=== PATIENT | male | born 1935 | race Caucasian/White ===

== ENCOUNTER 2017-01-07 13:38 | Inpatient (IN) | payer OTHER, MEDICARE ==
[2017-01-07] VITALS (18 sets, daily range): BP systolic 93–226; BP diastolic 49–102; PULSE 57–74; RESP 14–20; TEMP 97.6–98; O2SAT 92–97
[~2017-01-07] VITALS: Ht 190.5 cm; Wt 95.8 kg
[2017-01-07] MEDS ORDERED: SODIUM CHLORIDE 0.9% FLUSH 10 ML FLUSH IVF PRN (15:00)
[2017-01-07 15:04] LABS: BASOPHIL % 0.3 % (0.0-2.0); EOSINOPHIL # 0.2 TH/MM3 (0-0.4); EOSINOPHIL % 1.8 % (0.0-4.0); HEMATOCRIT 51.3 % (39.0-51.0); HEMO FLAGS DIFF FINAL; LYMPH % 14.3 % (9.0-44.0); LYMPHOCYTE # 1.5 TH/MM3 (1.0-4.8); MEAN CELL VOLUME 89.1 FL (80.0-100.0); MEAN CORPUSCULAR HEMOGLOBIN 28.5 PG (27.0-34.0); MONO % 7.6 % (0.0-8.0); PLATELET COUNT 154 TH/MM3 (150-450); RED BLOOD COUNT 5.76 MIL/MM3 (4.50-5.90); RED CELL DISTRIBUTION WIDTH 13.5 % (11.6-17.2); WHITE BLOOD COUNT 10.5 TH/MM3 (4.0-11.0)
--- NOTE | 2017-01-07 15:09 | PD ---
HPI Chief Complaint: Chest Pain Time Seen by Provider: 14:44 Travel History International Travel<30 days: No Contact w/Intl Traveler<30days: No Traveled to known affect area: No History of Present Illness HPI Patient is a 81-year-old male with history of hypertension, hyperlipidemia, history of 2 cardiac stents, presents to emergency room with complaints of chest pain. Patient reports that around 11:45 this morning, he began to have some upper belly pain along with chest pain. Patient reports that his chest pain was located to his epigastrium, reports that it radiates to his back. Patient reports that the chest pain felt like a "pressure to his chest" and was associated with shortness of breath as well as diaphoresis. Patient reports that his symptoms have been continuous since this morning and patient was worried as he has not had the symptoms in the past. Patient reports that he does see a timber inspector, Dr. Calderón - he has not seen him in many years. PFSH Past Medical History High Cholesterol: Yes Hypertension: Yes Past Surgical History Coronary Stent: Yes Social History Tobacco Use: No Allergies-Medications (Allergen,Severity, Reaction): Coded Allergies: No Known Allergies (Unverified , 01/07/17) Reported Meds & Prescriptions Reported Meds & Active Scripts Active Reported Atenolol 50 Mg Tab 50 Mg PO DAILY Review of Systems General / Constitutional: No: Fever Eyes: No: Visual changes HENT: No: Headaches Cardiovascular: Positive: Chest Pain or Discomfort, Diaphoresis Respiratory: Positive: Shortness of Breath Gastrointestinal: Positive: Nausea, Abdominal Pain, No: Vomiting Genitourinary: No: Dysuria Musculoskeletal: No: Pain Skin: No Rash Neurologic: No: Weakness Psychiatric: No: Depression Endocrine: No: Polydipsia Hematologic/Lymphatic: No: Easy Bruising Physical Exam Narrative GENERAL: Mild distress SKIN: Focused skin assessment warm/dry. HEAD: Atraumatic. Normocephalic. EYES: Pupils equal and round. No scleral icterus. No injection or drainage. ENT: No nasal bleeding or discharge. Mucous membranes pink and moist. NECK: Trachea midline. No JVD. CARDIOVASCULAR: Regular rate and rhythm. No murmur appreciated. RESPIRATORY: No accessory muscle use. Clear to auscultation. Breath sounds equal bilaterally. GASTROINTESTINAL: Abdomen soft, non-tender, nondistended. Hepatic and splenic margins not palpable. MUSCULOSKELETAL: No obvious deformities. No clubbing. No cyanosis. No edema. NEUROLOGICAL: Awake and alert. No obvious cranial nerve deficits. Motor grossly within normal limits. Normal speech. PSYCHIATRIC: Appropriate mood and affect; insight and judgment normal. Data Data Last Documented VS Vital Signs Date Time Temp Pulse Resp B/P Pulse Ox O2 Delivery O2 Flow Rate FiO2 01/07/17 15:30 58 16 141/76 94 Nasal Cannula 2 01/07/17 13:43 97.8 Orders Electrocardiogram (01/07/17 ) B-Type Natriuretic Peptide (01/07/17 14:53) Ckmb (Isoenzyme) Profile (01/07/17 14:53) Complete Blood Count With Diff (01/07/17 14:53) Comprehensive Metabolic Panel (01/07/17 14:53) Magnesium (Mg) (01/07/17 14:53) Prothrombin Time / Inr (Pt) (01/07/17 14:53) Act Partial Throm Time (Ptt) (01/07/17 14:53) Troponin I (01/07/17 14:53) Lipase (01/07/17 14:53) Chest, Single Ap (01/07/17 14:53) Ecg Monitoring (01/07/17 14:53) Bilateral Bp Monitoring (01/07/17 14:53) Iv Access Insert/Monitor (01/07/17 14:53) Oximetry (01/07/17 14:53) Sodium Chloride 0.9% Flush (Ns Flush) (01/07/17 15:00) Nitroglycerin Sl (Nitrostat Sl) (01/07/17 15:00) Cta Thor Abd Aorta W Iv C W3d (01/07/17 14:53) Nicardipine Inj (Cardene Inj) (01/07/17 16:00) Iohexol 350 Inj (Omnipaque 350 Inj) (01/07/17 15:53) Morphine Inj (Morphine Inj) (01/07/17 16:15) Labs Laboratory Tests Test 01/07/17 14:40 White Blood Count 10.5 TH/MM3 Red Blood Count 5.76 MIL/MM3 Hemoglobin 16.4 GM/DL Hematocrit 51.3 % Mean Corpuscular Volume 89.1 FL Mean Corpuscular Hemoglobin 28.5 PG Mean Corpuscular Hemoglobin 32.0 % Concent Red Cell Distribution Width 13.5 % Platelet Count 154 TH/MM3 Mean Platelet Volume 9.0 FL Neutrophils (%) (Auto) 76.0 % Lymphocytes (%) (Auto) 14.3 % Monocytes (%) (Auto) 7.6 % Eosinophils (%) (Auto) 1.8 % Basophils (%) (Auto) 0.3 % Neutrophils # (Auto) 8.0 TH/MM3 Lymphocytes # (Auto) 1.5 TH/MM3 Monocytes # (Auto) 0.8 TH/MM3 Eosinophils # (Auto) 0.2 TH/MM3 Basophils # (Auto) 0.0 TH/MM3 CBC Comment DIFF FINAL Differential Comment Prothrombin Time 11.3 SEC Prothromb Time International 1.0 RATIO Ratio Activated Partial 31.0 SEC Thromboplast Time Sodium Level 143 MEQ/L Potassium Level 4.6 MEQ/L Chloride Level 107 MEQ/L Carbon Dioxide Level 28.1 MEQ/L Anion Gap 8 MEQ/L Blood Urea Nitrogen 17 MG/DL Creatinine 1.40 MG/DL Estimat Glomerular Filtration 49 ML/MIN Rate Random Glucose 111 MG/DL Calcium Level 8.7 MG/DL Magnesium Level 2.2 MG/DL Total Bilirubin 0.7 MG/DL Aspartate Amino Transf 20 U/L (AST/SGOT) Alanine Aminotransferase 30 U/L (ALT/SGPT) Alkaline Phosphatase 73 U/L Total Creatine Kinase 85 U/L Troponin I LESS THAN 0.02 NG/ML Total Protein 7.7 GM/DL Albumin 3.9 GM/DL Lipase 136 U/L MDM Medical Decision Making Medical Screen Exam Complete: Yes Emergency Medical Condition: Yes Interpretation(s) EKG at 1345: Sinus bradycardia at 58bpm, qt/qtc: 418/415, 1st degree av block, no acute changes Vital Signs Date Time Temp Pulse Resp B/P Pulse Ox O2 Delivery O2 Flow Rate FiO2 01/07/17 13:43 97.8 59 14 192/102 96 Differential Diagnosis ACS, arrhythmia, aortic dissection, pancreatitis, gastroenteritis, electrolyte abnormality, PE, pneumothorax Narrative Course Patient is an 81-year-old male with history of coronary disease, hypertension, hyperlipidemia, emergency room with complaints of abdominal pain as well as chest pain. Symptoms started around 11:45 AM today, reports that the pain goes from his upper abdomen to his epigastrium and radiates to his back. He does have associated nausea, diaphoresis and shortness breath with his symptoms. EKG was obtained upon arrival to emergency room, patient does have sinus bradycardia with no acute changes. Patient was placed on a cardiac surgeon, labs as well as cardiac enzymes ordered. Patient with concerning symptoms for chest pain radiating to back - he does have elevated blood pressure at this time - CTA ordered as there is concerns for aortic dissection. Chest xray ordered to evaluate mediastinum. Will hold on asa until cta has been resulted chest pain 2/10 after 3 SL nitro administered pt with type b dissection, call made to Dr Scruggs, accepts pt to service at [facility], request cardene or labetolol gtt with sbp around 110 and request admission to ICU Critical Care Narrative Aggregate critical care time was 45 minutes. Time to perform other separately billable procedures was not included in the critical care time. My time did not include minutes spent treating any other patients simultaneously or on activities that did not directly contribute to the patient's treatment. The services I provided to this patient were to treat and/or prevent clinically significant deterioration that could result in: , decompensation, deterioration I provided critical care services requiring my management, as noted below: Chart data review, documentation time, medication orders and management, vital sign assessments/reviewing monitor data, ordering and reviewing lab tests, ordering and interpreting/reviewing x-rays and diagnostic studies, care of the patient and discussion of the patient with the admitting physicians. Diagnosis Primary Impression: Aortic dissection, thoracoabdominal Admitting Information Admitting Physician Requests: Admit Leonarda Diez DO Jan 07, 2017 15:09
[2017-01-07] MEDS: NITROGLYCERIN 0.4 MG SL 25 TABS/BTL SL SCH ×3 (15:11→15:25)
[2017-01-07 15:20] LABS: CHLORIDE 107 MEQ/L (98-107); POTASSIUM 4.6 MEQ/L (3.5-5.1); SODIUM (NA) 143 MEQ/L (136-145)
[2017-01-07 15:24] LABS: ANION GAP 8 MEQ/L (5-15); BICARBONATE 28.1 MEQ/L (21.0-32.0); BLOOD UREA NITROGEN 17 MG/DL (7-18); MAGNESIUM 2.2 MG/DL (1.5-2.5); PROTHROMBIN TIME - PATIENT 11.3 SEC (9.8-11.6)
[2017-01-07 15:27] LABS: ALT (GPT) 30 U/L (12-78); AST (GOT) 20 U/L (15-37); GLOMERULAR FILTRATION RATE 49 ML/MIN (>89)
[2017-01-07 15:29] LABS: TOTAL BILIRUBIN ADULT 0.7 MG/DL (0.2-1.0)
[2017-01-07 15:30] LABS: ALKALINE PHOSPHATASE 73 U/L (45-117)
[2017-01-07] MEDS ORDERED: ATEN50TA PO (15:42)
[2017-01-07] MEDS ORDERED: IOHEXOL 350 MG/ML 10 ML VIAL (for RAD DIAG) IV ONE (15:53)
--- NOTE | 2017-01-07 15:57 | RADHPO ---
EXAM DATE/TIME: 01/07/2017 15:10 [facility] COMPARISON: No previous studies available for comparison. INDICATIONS : Chest and abdominal pain for 12 hours MEDICAL HISTORY : None. SURGICAL HISTORY : None. ENCOUNTER: Initial ACUITY: 1 day PAIN SCORE: 8/10 LOCATION: Bilateral chest FINDINGS: The cardiac silhouette is normal in transverse diameter. The lungs are free of acute parenchymal opac ity. No effusions are identified. The aortic knob is prominent in this patient undergoing CT angiogra phy. CONCLUSION: 1. No acute cardiopulmonary disease. Aneurysmal dilatation of the thoracic arch. Broderick Chan MD on January 07, 2017 at 15:55 Board Certified Radiologist. This report was verified electronically.
[2017-01-07 15:58] LABS: CREATINE KINASE 85 U/L (39-308)
[2017-01-07] MEDS ORDERED: niCARdipine INJ 25 MG in SODIUM CHLOR 0.9% 250 ML INJ 250 ML IV ONE (16:00)
[2017-01-07] MEDS ORDERED: MORPHINE SULFATE 4 MG/ML INJ IV PUSH ONE (16:15)
[2017-01-07] MEDS ORDERED: LABETALOL HCL 100 MG/20 ML VIAL IV PUSH ONE ×3 (16:30→19:15)
--- NOTE | 2017-01-07 16:39 | RADHPO ---
EXAM DATE/TIME: 01/07/2017 15:41 [facility] COMPARISON: No previous studies available for comparison. INDICATIONS : Chest pain today. IV CONTRAST: 100 cc Omnipaque 350 (iohexol) IV RADIATION DOSE: 18.35 CTDIvol (mGy) MEDICAL HISTORY : Hypertension. SURGICAL HISTORY : Coronary artery stent. ENCOUNTER: Initial ACUITY: 1 day PAIN SCALE: 5/10 LOCATION: Bilateral chest TECHNIQUE: Volumetric scanning was performed using a multi-row detector CT scanner. The data was post processed with a variety of visualization algorithms including full volume maximum intensity pr ojection, multi-planar sliding thin slab reformation, curved planar reformation, and surface renderin g techniques. Using automated exposure control and adjustment of the mA and/or kV according to patie nt size, radiation dose was kept as low as reasonably achievable to obtain optimal diagnostic quality images. FINDINGS: There is extensive atherosclerotic vascular disease involving coronary arteries and aorta. The ascen ding aorta is normal in size. There is a dissection of the descending aorta with both true and false lumen that starts just below t he arch and extends down through the abdominal aorta. The celiac plexus arises from the true lumen. The superior mesenteric artery arises from the true lumen. The right renal artery arises partially from the true lumen and partially from the false lumen. The left renal artery arises from the true l umen. The dissection stops at the level of the renal arteries. Common iliac, external iliac and common femoral arteries are patent. There are no suspicious lung lesions identified. Review of source data reveals no suspicious lung lesions. There is a very poorly perfused right kidn ey with the bulk of the kidney being fed by an artery off of the false lumen. The inferior lower dante e is fed by a second artery off of the true lumen. There is reasonable perfusion to the left kidney. CONCLUSION: Dissection as described above. The right renal artery is predominantly in the false lumen. Mesenter ic arteries are in the true lumen. This does not extend over the arch. Andrew Lopez MD FACR on January 07, 2017 at 16:28 Board Certified Radiologist. This report was verified electronically.
--- NOTE | 2017-01-07 17:18 | PD ---
Data Data Last Documented VS Vital Signs Date Time Temp Pulse Resp B/P Pulse Ox O2 Delivery O2 Flow Rate FiO2 01/07/17 15:30 58 16 141/76 94 Nasal Cannula 2 01/07/17 13:43 97.8 Orders Electrocardiogram (01/07/17 ) B-Type Natriuretic Peptide (01/07/17 14:53) Ckmb (Isoenzyme) Profile (01/07/17 14:53) Complete Blood Count With Diff (01/07/17 14:53) Comprehensive Metabolic Panel (01/07/17 14:53) Magnesium (Mg) (01/07/17 14:53) Prothrombin Time / Inr (Pt) (01/07/17 14:53) Act Partial Throm Time (Ptt) (01/07/17 14:53) Troponin I (01/07/17 14:53) Lipase (01/07/17 14:53) Chest, Single Ap (01/07/17 14:53) Ecg Monitoring (01/07/17 14:53) Bilateral Bp Monitoring (01/07/17 14:53) Iv Access Insert/Monitor (01/07/17 14:53) Oximetry (01/07/17 14:53) Sodium Chloride 0.9% Flush (Ns Flush) (01/07/17 15:00) Nitroglycerin Sl (Nitrostat Sl) (01/07/17 15:00) Cta Thor Abd Aorta W Iv C W3d (01/07/17 14:53) Nicardipine Inj (Cardene Inj) (01/07/17 16:00) Iohexol 350 Inj (Omnipaque 350 Inj) (01/07/17 15:53) Morphine Inj (Morphine Inj) (01/07/17 16:15) Admit Order (Ed Use Only) (01/07/17 16:11) Labs Laboratory Tests Test 01/07/17 14:40 White Blood Count 10.5 TH/MM3 Red Blood Count 5.76 MIL/MM3 Hemoglobin 16.4 GM/DL Hematocrit 51.3 % Mean Corpuscular Volume 89.1 FL Mean Corpuscular Hemoglobin 28.5 PG Mean Corpuscular Hemoglobin 32.0 % Concent Red Cell Distribution Width 13.5 % Platelet Count 154 TH/MM3 Mean Platelet Volume 9.0 FL Neutrophils (%) (Auto) 76.0 % Lymphocytes (%) (Auto) 14.3 % Monocytes (%) (Auto) 7.6 % Eosinophils (%) (Auto) 1.8 % Basophils (%) (Auto) 0.3 % Neutrophils # (Auto) 8.0 TH/MM3 Lymphocytes # (Auto) 1.5 TH/MM3 Monocytes # (Auto) 0.8 TH/MM3 Eosinophils # (Auto) 0.2 TH/MM3 Basophils # (Auto) 0.0 TH/MM3 CBC Comment DIFF FINAL Differential Comment Prothrombin Time 11.3 SEC Prothromb Time International 1.0 RATIO Ratio Activated Partial 31.0 SEC Thromboplast Time Sodium Level 143 MEQ/L Potassium Level 4.6 MEQ/L Chloride Level 107 MEQ/L Carbon Dioxide Level 28.1 MEQ/L Anion Gap 8 MEQ/L Blood Urea Nitrogen 17 MG/DL Creatinine 1.40 MG/DL Estimat Glomerular Filtration 49 ML/MIN Rate Random Glucose 111 MG/DL Calcium Level 8.7 MG/DL Magnesium Level 2.2 MG/DL Total Bilirubin 0.7 MG/DL Aspartate Amino Transf 20 U/L (AST/SGOT) Alanine Aminotransferase 30 U/L (ALT/SGPT) Alkaline Phosphatase 73 U/L Total Creatine Kinase 85 U/L Troponin I LESS THAN 0.02 NG/ML B-Type Natriuretic Peptide 154 PG/ML Total Protein 7.7 GM/DL Albumin 3.9 GM/DL Lipase 136 U/L MDM Supervised Visit with [facility]RI[facility]: No Narrative Course 81-year-old man, admitted for aortic dissection, waiting emergent transfer to the ICU at the [facility]. I assumed care of Patient care patient from Dr. Diez. Patient admitted to the ICU at this point. Continue nicardipine. Blood pressure not at goal less than 110. Heart rate is 72. Right radial arterial line was placed. Patient tolerated well. Recommended more aggressive titration of his nicardipine. EMS is here to take patient to the ICU. Procedures Procedure Narrative Arterial line: Discussed procedure patient. Verbal consent obtained. Right wrist was prepped with chlorhexidine. 20-gauge angiocatheter was easily introduced in the right radial artery. Good waveform. There is some discrepancy between the blood pressure cuff and the arterial line. This may be related to the dissection itself. Diagnosis Primary Impression: Aortic dissection, thoracoabdominal Kris Lua MD Jan 07, 2017 17:18
[2017-01-07] MEDS ORDERED: LABETALOL HCL 100 MG/20 ML VIAL IV PUSH PRN (18:45)
[2017-01-07] MEDS ORDERED: D5-1/2 NS + KCL 20 MEQ INJ 1,000 ML IV SCH (18:56)
[2017-01-07] MEDS ORDERED: LABETALOL IV SCH ×2 (19:00)
[2017-01-07] MEDS ORDERED: MORPHINE SULFATE 4 MG/ML INJ IV PRN (19:00)
[2017-01-07] MEDS ORDERED: NS IV SCH ×2 (19:00)
--- NOTE | 2017-01-07 19:14 | PD.CONS ---
[facility] Service Critical Care Medicine Consult Requested By Dr. Scruggs Reason for Consult Critical Care Management of Type B Aortic Dissection. Primary Care Physician Ines Vences MD History of Present Illness 81 yo WM with past medical history of hypertension, hyperlipidemia, coronary artery disease with stents 2 placed 17 years ago who presented to [facility] after he developed the sudden onset of severe chest pain at 11:45 this morning. He states the pain feels like pressure in the epigastrium and left chest and radiates to the back. It was associated with diaphoresis. He states that he could not get comfortable and that nothing would relieve his severe pain so he was transported to the hospital by [facility]. Workup demonstrated troponin of 0.02. With EKG showing sinus bradycardia with first-degree AV block and no ST or T-wave abnormalities. 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 The mesenteric arteries or in the true lumen and the right renal artery is in the false lumen. His blood pressure upon presentation was 226/ 101. He was started on a nicardipine drip which is currently going at 15 mg per hour and blood pressure is 149/59. He is being started on a labetalol drip to target systolic blood pressure less than 110. He reports persistent pain in his epigastrium and left flank and complains of thirst. 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 He quit smoking 30 years ago. He previously smoked up to 3 packs per day for 25 years States that on average he drinks about 3 glasses of wine per day but can go several days without drinking. Denies use of illicit drugs Physical Exam Vital Signs Vital Signs Date Time Temp Pulse Resp B/P Pulse Ox O2 Delivery O2 Flow Rate FiO2 01/07/17 18:24 97 Nasal Cannula 2.00 01/07/17 18:00 98.0 68 16 150/75 94 167/56 01/07/17 17:40 67 16 154/72 95 Nasal Cannula 2 01/07/17 17:25 73 154/74 01/07/17 17:10 71 14 161/79 97 Nasal Cannula 2 157/78 01/07/17 17:06 186/67 01/07/17 16:50 164/85 01/07/17 16:45 178/80 01/07/17 16:30 169/81 01/07/17 15:30 58 16 141/76 94 Nasal Cannula 2 01/07/17 15:23 226/101 207/102 01/07/17 15:10 58 16 207/102 94 2 01/07/17 14:40 57 16 92 Nasal Cannula 2 01/07/17 14:40 57 16 226/101 92 Nasal Cannula 2 01/07/17 13:43 97.8 59 14 192/102 96 Physical Exam Pulse 75, sinus rhythm on the monitor blood pressure 149/59 sats 96% on 3 L nasal cannula GENERAL: Well-nourished, well-developed patient who is alert, sitting up in bed , talkative. SKIN: Warm and dry, well perfused HEAD: Atraumatic. Normocephalic. EYES: Pupils equal and round. No scleral icterus. No injection or drainage. ENT: No nasal bleeding or discharge. Mucous membranes pink and moist. NECK: Trachea midline. Neck veins are flat CARDIOVASCULAR: Regular rate and rhythm. No murmurs rubs or gallops. RESPIRATORY: No accessory muscle use. Clear to auscultation. Breath sounds equal bilaterally. On 3 L nasal cannula. GASTROINTESTINAL: Abdomen soft, protuberant but nondistended. He reports no tenderness to palpation. There is no rebound or guarding. MUSCULOSKELETAL/vasc: Extremities without clubbing, cyanosis, or edema. No obvious deformities. DPs and posterior tibial artery pulses are palpable bilaterally. Feet are warm and well perfused. Right radial art line is in place with normal waveform. Left radial pulse is palpable. NEUROLOGICAL: Awake and alert, normal speech, oriented 4. No obvious cranial nerve deficits. Motor grossly within normal limits, moving all extremities spontaneously. Five out of 5 muscle strength in the arms and legs. Laboratory Laboratory Tests Test 01/07/17 01/07/17 14:40 16:30 White Blood Count 10.5 Red Blood Count 5.76 Hemoglobin 16.4 Hematocrit 51.3 Mean Corpuscular Volume 89.1 Mean Corpuscular Hemoglobin 28.5 Mean Corpuscular Hemoglobin 32.0 Concent Red Cell Distribution Width 13.5 Platelet Count 154 Mean Platelet Volume 9.0 Neutrophils (%) (Auto) 76.0 Lymphocytes (%) (Auto) 14.3 Monocytes (%) (Auto) 7.6 Eosinophils (%) (Auto) 1.8 Basophils (%) (Auto) 0.3 Neutrophils # (Auto) 8.0 Lymphocytes # (Auto) 1.5 Monocytes # (Auto) 0.8 Eosinophils # (Auto) 0.2 Basophils # (Auto) 0.0 CBC Comment DIFF FINAL Differential Comment Prothrombin Time 11.3 Prothromb Time International 1.0 Ratio Activated Partial 31.0 Thromboplast Time Sodium Level 143 Potassium Level 4.6 Chloride Level 107 Carbon Dioxide Level 28.1 Anion Gap 8 Blood Urea Nitrogen 17 Creatinine 1.40 Estimat Glomerular Filtration 49 Rate Random Glucose 111 Calcium Level 8.7 Magnesium Level 2.2 Total Bilirubin 0.7 Aspartate Amino Transf 20 (AST/SGOT) Alanine Aminotransferase 30 (ALT/SGPT) Alkaline Phosphatase 73 Total Creatine Kinase 85 Troponin I LESS THAN 0.02 B-Type Natriuretic Peptide 154 Total Protein 7.7 Albumin 3.9 Lipase 136 Blood Type O POSITIVE Antibody Screen NEGATIVE Blood Bank Comment Result Diagram: 01/07/17 1440 01/07/17 1440 Assessment and Plan Assessment and Plan NEURO: Pain secondary to aortic dissection Oxycodone 5 mg by mouth every 4 hours when necessary pain. Morphine 2 mg IV every hours when necessary breakthrough pain. RESP: Nasal cannula wean as tolerated. IS every hour awake. 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 Scruggs Serial cardiac markers. Initial troponin is negative with EKG unremarkable. Aspirin 81 mg daily start 01/08/[address] Scruggs Lipitor 40 mg daily at bedtime GI: Ice chips FEN/RENAL: Renal insufficiency with unknown baseline creatinine Insert Salgado to monitor urine output closely as blood pressure is lowered. Monitor creatinine. Monitor electrolytes and replace as indicated per ICU electrolyte replacement protocol ID: Monitor for signs and symptoms of infection HEME: No acute hematologic issues ENDO: Euglycemic PROPH: Protonix 40 mg by mouth daily for stress ulcer prophylaxis. Lovenox 30 mg subcutaneous every 24 hours for DVT prophylaxis ACCESS: Right radial art line placed 01/07/[address] Scruggs and bedside RN. Patient updated regarding plan of care. Critical care time 55 minutes exclusive of separately billable procedures. Nguyen Hong MD Jan 07, 2017 19:14
[2017-01-07] MEDS: LABETALOL INJ 500 MG in SODIUM CHLORIDE 0.9% INJ 150 ML IV SCH ×2 (20:06→23:59)
--- NOTE | 2017-01-07 20:38 | HHI.HP ---
History of Present Illness Chief Complaint: back pain History of Present Illness 81 yo male with acute onset L chest wall and back pain about 1130 today. Presented to ED at [facility] and r/o for [place], then a CT scan showed an acute TBAD. BP controlled pharmacologically and transferred for further management. No prior episodes like this. At the time of my evaluation, his pain had attenuated significantly. Past/Family/Social History Past Medical History HTN XOL CAD BPH Past Surgical History TURP Coronary stents about 17-18 years ago Social History moved to [place] from [place] about 40 years ago Family History no dissections Home Medications Reported Medications Atenolol 50 Mg Tab50 Mg PO DAILY #30 TAB Ref 0 01/07/17 Coded Allergies: No Known Allergies (Unverified , 01/07/17) Review of Systems Constitutional: DENIES: Fever, Chills, Change in appetite Cardiovascular: COMPLAINS OF: Chest pain Gastrointestinal: COMPLAINS OF: Abdominal pain Physical Exam Vitals/I&O Date Time Temp Pulse Resp B/P Pulse Ox O2 Delivery O2 Flow Rate FiO2 01/07/17 20:10 93 Nasal Cannula 3.00 01/07/17 18:24 97 Nasal Cannula 2.00 01/07/17 18:00 98.0 68 16 150/75 94 167/56 01/07/17 17:40 67 16 154/72 95 Nasal Cannula 2 01/07/17 17:25 73 154/74 01/07/17 17:10 71 14 161/79 97 Nasal Cannula 2 157/78 01/07/17 17:06 186/67 01/07/17 16:50 164/85 01/07/17 16:45 178/80 01/07/17 16:30 169/81 01/07/17 15:30 58 16 141/76 94 Nasal Cannula 2 01/07/17 15:23 226/101 207/102 01/07/17 15:10 58 16 207/102 94 2 01/07/17 14:40 57 16 92 Nasal Cannula 2 01/07/17 14:40 57 16 226/101 92 Nasal Cannula 2 01/07/17 13:43 97.8 59 14 192/102 96 Neuro: alert, resting comfortably HEENT: NC/AT; anicteric sclera Neck: no JVD Heart: reg rate, rhythm Lungs: clear bilaterally Abdomen: soft NT Vascular: palpable femoral pulses Extremities: RAYO, symmetric with good strength Laboratory Tests Test 01/07/17 01/07/17 14:40 16:30 White Blood Count 10.5 Red Blood Count 5.76 Hemoglobin 16.4 Hematocrit 51.3 Mean Corpuscular Volume 89.1 Mean Corpuscular Hemoglobin 28.5 Mean Corpuscular Hemoglobin 32.0 Concent Red Cell Distribution Width 13.5 Platelet Count 154 Mean Platelet Volume 9.0 Neutrophils (%) (Auto) 76.0 Lymphocytes (%) (Auto) 14.3 Monocytes (%) (Auto) 7.6 Eosinophils (%) (Auto) 1.8 Basophils (%) (Auto) 0.3 Neutrophils # (Auto) 8.0 Lymphocytes # (Auto) 1.5 Monocytes # (Auto) 0.8 Eosinophils # (Auto) 0.2 Basophils # (Auto) 0.0 CBC Comment DIFF FINAL Differential Comment Prothrombin Time 11.3 Prothromb Time International 1.0 Ratio Activated Partial 31.0 Thromboplast Time Sodium Level 143 Potassium Level 4.6 Chloride Level 107 Carbon Dioxide Level 28.1 Anion Gap 8 Blood Urea Nitrogen 17 Creatinine 1.40 Estimat Glomerular Filtration 49 Rate Random Glucose 111 Calcium Level 8.7 Magnesium Level 2.2 Total Bilirubin 0.7 Aspartate Amino Transf 20 (AST/SGOT) Alanine Aminotransferase 30 (ALT/SGPT) Alkaline Phosphatase 73 Total Creatine Kinase 85 Troponin I LESS THAN 0.02 B-Type Natriuretic Peptide 154 Total Protein 7.7 Albumin 3.9 Lipase 136 Blood Type O POSITIVE Antibody Screen NEGATIVE Blood Bank Comment Last 48 hours Impressions Chest X-Ray 01/07/17 1453 Signed Impressions: Service Date/Time: Saturday, January 07, 2017 15:10 - CONCLUSION: 1. No acute cardiopulmonary disease. Aneurysmal dilatation of the thoracic arch. Broderick Chan MD Aorta CTA 01/07/17 1453 Signed Impressions: Service Date/Time: Saturday, January 07, 2017 15:41 - CONCLUSION: Dissection as described above. The right renal artery is predominantly in the false lumen. Mesenteric arteries are in the true lumen. This does not extend over the arch. 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 1. BP control with goal SBP 110 - betablockage 2. NPO tonight 3. Watch for recurrent pain 4. Repeat CT in 48-72 hours Antwon Scruggs MD FACS residential builder [facility] - Heart and Vascular Surgery at [facility] [phone] Antwon Scruggs MD Jan 07, 2017 20:38
[2017-01-07] MEDS: ENOXAPARIN SODIUM 30 MG/0.3 ML SYRINGE SQ SCH (22:38)
[2017-01-07] MEDS: ATORVASTATIN 40 MG TAB PO SCH (22:39)
[2017-01-08] VITALS (11 sets, daily range): BP systolic 100–155; BP diastolic 45–88; PULSE 72–80; RESP 18–20; TEMP 97–98.1; O2SAT 93–97
[2017-01-08 01:09] LABS: BACTERIA, URINE RARE /hpf; BLOOD, URINE NEG (NEG); GLUCOSE,URINE NEG (NEG); KETONE, URINE TRACE mg/dL (NEG); MUCUS URINE FEW /lpf (OCC); NITRITE,URINE NEG (NEG); RENAL EPITHELIAL CELLS <1 /hpf; SQUAMOUS EPITHELIAL CELL URINE <1 /hpf (0-5); URINE COLOR YELLOW (YELLW/STRAW)
[2017-01-08 01:10] LABS: COMMENT (UR) CATH
[2017-01-08] MEDS: ONDANSETRON HCL 4 MG/2 ML VIAL IV PUSH PRN ×3 (01:36→14:44)
[2017-01-08] MEDS: LABETALOL INJ 500 MG in SODIUM CHLORIDE 0.9% INJ 150 ML IV SCH ×8 (03:42→22:31)
[2017-01-08 05:51] LABS: AUTOMATED NEUTROPHIL # 7.9 TH/MM3 (1.8-7.7); BASOPHIL % 0.1 % (0.0-2.0); HEMATOCRIT 42.1 % (39.0-51.0); HEMO FLAGS DIFF FINAL; LYMPH % 10.5 % (9.0-44.0); MEAN CORPUSCULAR HEMOGLOBIN 29.8 PG (27.0-34.0); MEAN CORPUSCULAR HGB CONC 33.8 % (32.0-36.0); MONO % 8.4 % (0.0-8.0); PLATELET COUNT 130 TH/MM3 (150-450); RED BLOOD COUNT 4.79 MIL/MM3 (4.50-5.90); RED CELL DISTRIBUTION WIDTH 13.9 % (11.6-17.2); WHITE BLOOD COUNT 9.7 TH/MM3 (4.0-11.0)
[2017-01-08 06:19] LABS: ALKALINE PHOSPHATASE 61 U/L (45-117); ALT (GPT) 23 U/L (12-78); ANION GAP 13 MEQ/L (5-15); AST (GOT) 15 U/L (15-37); BICARBONATE 23.4 MEQ/L (21.0-32.0); BLOOD UREA NITROGEN 24 MG/DL (7-18); CHLORIDE 106 MEQ/L (98-107); GLOMERULAR FILTRATION RATE 26 ML/MIN (>89); MAGNESIUM 1.9 MG/DL (1.5-2.5); POTASSIUM 4.3 MEQ/L (3.5-5.1); SODIUM (NA) 142 MEQ/L (136-145); TOTAL BILIRUBIN ADULT 0.9 MG/DL (0.2-1.0)
[2017-01-08] MEDS: SODIUM CHLORID 0.9% 500 ML INJ 1,000 ML IV SCH (09:15)
--- NOTE | 2017-01-08 09:39 | HHI.CCPN ---
Subjective Remarks/Hospital Course 81 yo WM with past medical history of hypertension, hyperlipidemia, coronary artery disease with stents 2 placed 17 years ago who presented to [facility] after he developed the sudden onset of severe chest pain at 11:45 this morning. He states the pain feels like pressure in the epigastrium and left chest and radiates to the back. It was associated with diaphoresis. He states that he could not get comfortable and that nothing would relieve his severe pain so he was transported to the hospital by [facility]. Workup demonstrated troponin of 0.02. With EKG showing sinus bradycardia with first-degree AV block and no ST or T-wave abnormalities. 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 The mesenteric arteries or in the true lumen and the right renal artery is in the false lumen. His blood pressure upon presentation was 226/ 101. He was started on a nicardipine drip which is currently going at 15 mg per hour and blood pressure is 149/59. He is being started on a labetalol drip to target systolic blood pressure less than 110. He reports persistent pain in his epigastrium and left flank and complains of thirst. 12/29/16: BP improved control on Labetalol gtt. NPO now. Once cleared by vascular surgery, will start PO antihypertensives. Target less than 110. Creat worsened from 1.4 to 2.4. Nephrology consulted Objective Vital Signs Date Time Temp Pulse Resp B/P Pulse Ox O2 Delivery O2 Flow Rate FiO2 01/08/17 08:51 97.7 80 18 116/45 94 115/60 01/07/17 20:10 Nasal Cannula 3.00 Result Diagram: 01/08/17 0515 01/08/17 0515 Objective Remarks GENERAL: Well-nourished, well-developed patient who is alert, sitting up in bed , talkative. No acute distress SKIN: Warm and dry, well perfused HEAD: Atraumatic. Normocephalic. EYES: Pupils equal and round. No scleral icterus. No injection or drainage. ENT: No nasal bleeding or discharge. Mucous membranes pink and moist. NECK: Trachea midline. Neck veins are flat CARDIOVASCULAR: Regular rate and rhythm. No murmurs rubs or gallops. RESPIRATORY: No accessory muscle use. Clear to auscultation. Breath sounds equal bilaterally. GASTROINTESTINAL: Abdomen soft, protuberant but nondistended. No tenderness to palpation. There is no rebound or guarding. MUSCULOSKELETAL/VASC: Extremities without clubbing, cyanosis, or edema. DPs and posterior tibial artery pulses are palpable bilaterally. Feet are warm and well perfused. NEUROLOGICAL: Awake and alert, normal speech, oriented 4. No obvious cranial nerve deficits. Motor grossly within normal limits A/P Assessment and Plan NEURO: Pain secondary to aortic dissection Oxycodone 5 mg by mouth every 4 hours when necessary pain. Morphine 2 mg IV every hours when necessary breakthrough pain. RESP: Nasal cannula wean as tolerated. IS every hour awake. 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 Scruggs Serial cardiac markers. Initial troponin is negative with EKG unremarkable. Aspirin 81 mg daily start 01/08/[address] Scruggs. Will check with Dr. Scruggs prior to starting Lipitor 40 mg daily at bedtime GI: Ice chips. NPO. If cleared by Dr. Scruggs will start PO antihypertensives FEN/RENAL: Acute kidney failure -with unknown baseline creatinine. IVF NS 1L and 1/2 NS with 20 K at 100 per hour -Insert Salgado to monitor urine output closely as blood pressure is lowered. Monitor creatinine. Monitor electrolytes and replace as indicated per ICU electrolyte replacement protocol ID: Monitor for signs and symptoms of infection HEME: No acute hematologic issues ENDO: Euglycemic PROPH: Protonix 40 mg by mouth daily for stress ulcer prophylaxis. Lovenox 30 mg subcutaneous every 24 hours for DVT prophylaxis ACCESS: Right radial art line placed 01/07/[address] Scruggs and bedside RN. Patient updated regarding plan of care. Critical care time 35 minutes exclusive of separately billable procedures. Elena Trivedi MD Jan 08, 2017 09:38
[2017-01-08] MEDS: PANTOPRAZOLE SOD 40 MG DELAYED RELEASE TAB PO SCH (10:00)
[2017-01-08] MEDS: ASPIRIN 81 MG CHEW TAB PO SCH (10:00)
--- NOTE | 2017-01-08 10:29 | RADRPT ---
EXAM DATE/TIME: 01/08/2017 08:52 [facility] COMPARISON: No previous studies available for comparison. INDICATIONS : Acute type B aortic dissection, evaluate renal arteries. MEDICAL HISTORY : Hypertension. Hyperlipidemia. SURGICAL HISTORY : Coronary stent. ENCOUNTER: Subsequent ACUITY: 1 day PAIN SCORE: 2/10 LOCATION: Bilateral flank MEASUREMENTS: RIGHT KIDNEY: 11.8 x 5.7 x 5.1 cm LEFT KIDNEY: 11.5 x 5.0 x 5.3 cm FINDINGS: RIGHT KIDNEY: Renal cortex is normal in thickness and echotexture. No hydronephrosis, stone, or mass. Renal arter y is patent. LEFT KIDNEY: Renal cortex is normal in thickness and echotexture. No hydronephrosis, stone, or mass. Renal arter ies patent. BLADDER: Within normal limits given the degree of distension. CONCLUSION: Kidneys within normal limits. Renal arteries patent. Alex Velasco MD on January 08, 2017 at 10:26 Board Certified Radiologist. This report was verified electronically.
[2017-01-08] MEDS: 1/2 NS + KCL 20 MEQ INJ 1,000 ML IV SCH ×2 (10:48→20:42)
--- NOTE | 2017-01-08 10:56 | RADRPT ---
EXAM DATE/TIME: 01/08/2017 10:06 [facility] COMPARISON: CTA THORACIC ABDOMINAL AORTA W 3D RECON, January 07, 2017, 15:41. INDICATIONS : Nausea, vomiting. MEDICAL HISTORY : Hypertension. SURGICAL HISTORY : Coronary artery stent. ENCOUNTER: Subsequent ACUITY: 2 days PAIN SCORE: 0/10 LOCATION: Abdomen. FINDINGS: Supine view of the abdomen was performed. Bowel gas pattern is nonobstructed with some minimal air in the colon. No pneumoperitoneum. Increased density projecting over the collecting systems bilaterally. No stones identified on the CTA or the recent ultrasound. Represent residual contrast in the collecting systems. 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 CONCLUSION: 1. Contrast within the renal collecting systems bilaterally. 2. Nonobstructive bowel gas pattern. No pneumoperitoneum. 3. 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 Tam Ledesma MD on January 08, 2017 at 10:49 Board Certified Radiologist. This report was verified electronically.
[2017-01-08] MEDS ORDERED: niCARdipine INJ 25 MG in SODIUM CHLOR 0.9% 250 ML INJ 250 ML IV ONE (12:15)
[2017-01-08] MEDS: niCARdipine 25 MG/NS 250 ML Vial2Bag or IV room IV SCH ×4 (12:18→18:15)
[2017-01-08] MEDS ORDERED: amLODIPine BESYLATE 5 MG TAB PO SCH (12:45)
--- NOTE | 2017-01-08 13:10 | EKG ---
Date Performed: 01/07/2017 Time Performed: 13:45:24 PTAGE: 81 years EKG: Sinus bradycardia with borderline 1st degree A-V block Septal T wave changes are nonspecifi c Borderline ECG NO PREVIOUS TRACING DOCTOR: Broderick Brewster Interpretating Date/Time 01/08/2017 13:08:08
[2017-01-08] MEDS ORDERED: RESP: ALBUTEROL 2.5 MG/IPRATROPIUM 0.5 MG NEB (PRN) NEB (13:15)
--- NOTE | 2017-01-08 13:21 | PD.VS.PN ---
Subjective Subjective/Hospital Course Pt adm with aTBAD - pain has substantially eased off with BP control. + emesis this morning and now better. c/o very thirsty Objective Vitals/I&O Date Time Temp Pulse Resp B/P Pulse Ox O2 Delivery O2 Flow Rate FiO2 01/08/17 11:30 97.9 80 18 131/64 146/52 01/08/17 11:29 72 01/08/17 10:25 97 Nasal Cannula 3.00 01/08/17 08:51 97.7 80 18 116/45 94 115/60 01/08/17 07:00 75 01/08/17 05:00 97.0 78 20 100/67 93 113/45 01/08/17 04:00 72 01/08/17 00:00 75 01/07/17 23:59 18 01/07/17 23:16 97.6 74 20 93/50 92 93/49 01/07/17 20:10 93 Nasal Cannula 3.00 01/07/17 20:00 72 01/07/17 19:00 20 158/61 95 01/07/17 18:24 97 Nasal Cannula 2.00 01/07/17 18:00 98.0 68 16 150/75 94 167/56 01/07/17 17:40 67 16 154/72 95 Nasal Cannula 2 01/07/17 17:25 73 154/74 01/07/17 17:10 71 14 161/79 97 Nasal Cannula 2 157/78 01/07/17 17:06 186/67 01/07/17 16:50 164/85 01/07/17 16:45 178/80 01/07/17 16:30 169/81 01/07/17 15:30 58 16 141/76 94 Nasal Cannula 2 01/07/17 15:23 226/101 207/102 01/07/17 15:10 58 16 207/102 94 2 01/07/17 14:40 57 16 92 Nasal Cannula 2 01/07/17 14:40 57 16 226/101 92 Nasal Cannula 2 01/07/17 13:43 97.8 59 14 192/102 96 Physical Exam no distress; no abdominal tenderness Laboratory Laboratory Tests Test 01/07/17 01/07/17 01/07/17 01/08/17 14:40 16:30 22:30 00:45 White Blood Count 10.5 Red Blood Count 5.76 Hemoglobin 16.4 Hematocrit 51.3 Mean Corpuscular Volume 89.1 Mean Corpuscular Hemoglobin 28.5 Mean Corpuscular Hemoglobin 32.0 Concent Red Cell Distribution Width 13.5 Platelet Count 154 Mean Platelet Volume 9.0 Neutrophils (%) (Auto) 76.0 Lymphocytes (%) (Auto) 14.3 Monocytes (%) (Auto) 7.6 Eosinophils (%) (Auto) 1.8 Basophils (%) (Auto) 0.3 Neutrophils # (Auto) 8.0 Lymphocytes # (Auto) 1.5 Monocytes # (Auto) 0.8 Eosinophils # (Auto) 0.2 Basophils # (Auto) 0.0 CBC Comment DIFF FINAL Differential Comment Prothrombin Time 11.3 Prothromb Time International 1.0 Ratio Activated Partial 31.0 Thromboplast Time Sodium Level 143 Potassium Level 4.6 Chloride Level 107 Carbon Dioxide Level 28.1 Anion Gap 8 Blood Urea Nitrogen 17 Creatinine 1.40 Estimat Glomerular Filtration 49 Rate Random Glucose 111 Calcium Level 8.7 Magnesium Level 2.2 Total Bilirubin 0.7 Aspartate Amino Transf 20 (AST/SGOT) Alanine Aminotransferase 30 (ALT/SGPT) Alkaline Phosphatase 73 Total Creatine Kinase 85 Troponin I LESS THAN 0.02 LESS THAN 0.02 B-Type Natriuretic Peptide 154 Total Protein 7.7 Albumin 3.9 Lipase 136 Blood Type O POSITIVE Antibody Screen NEGATIVE Blood Bank Comment Urine Color YELLOW Urine Turbidity CLEAR Urine pH 6.0 Urine Specific [place] GREATER THAN 1.050 Urine Protein 30 Urine Glucose (UA) NEG Urine Ketones TRACE Urine Occult Blood NEG Urine Nitrite NEG Urine Bilirubin NEG Urine Urobilinogen LESS THAN 2.0 Urine Leukocyte Esterase NEG Urine RBC 2 Urine WBC 1 Urine Squamous Epithelial <1 Cells Urine Renal Epithelial Cells <1 Urine Bacteria RARE Urine Mucus FEW Microscopic Urinalysis Comment CATH Urine Random Creatinine 104.7 Urine Random Sodium 50 Test 01/08/17 05:15 White Blood Count 9.7 Red Blood Count 4.79 Hemoglobin 14.3 Hematocrit 42.1 Mean Corpuscular Volume 88.0 Mean Corpuscular Hemoglobin 29.8 Mean Corpuscular Hemoglobin 33.8 Concent Red Cell Distribution Width 13.9 Platelet Count 130 Mean Platelet Volume 10.3 Neutrophils (%) (Auto) 81.0 Lymphocytes (%) (Auto) 10.5 Monocytes (%) (Auto) 8.4 Eosinophils (%) (Auto) 0.0 Basophils (%) (Auto) 0.1 Neutrophils # (Auto) 7.9 Lymphocytes # (Auto) 1.0 Monocytes # (Auto) 0.8 Eosinophils # (Auto) 0.0 Basophils # (Auto) 0.0 CBC Comment DIFF FINAL Differential Comment Sodium Level 142 Potassium Level 4.3 Chloride Level 106 Carbon Dioxide Level 23.4 Anion Gap 13 Blood Urea Nitrogen 24 Creatinine 2.41 Estimat Glomerular Filtration 26 Rate Random Glucose 171 Calcium Level 8.4 Phosphorus Level 3.0 Magnesium Level 1.9 Total Bilirubin 0.9 Aspartate Amino Transf 15 (AST/SGOT) Alanine Aminotransferase 23 (ALT/SGPT) Alkaline Phosphatase 61 Troponin I LESS THAN 0.02 Total Protein 6.4 Albumin 3.3 Imaging Last 48 hours Impressions Renal Ultrasound 01/08/17 0000 Signed Impressions: Service Date/Time: December 08:52 - CONCLUSION: Kidneys within normal limits. Renal arteries patent. Alex Velasco MD Abdomen X-Ray 01/08/17 0000 Signed Impressions: Service Date/Time: December 10:06 - CONCLUSION: 1. Contrast within the renal collecting systems bilaterally. 2. Nonobstructive bowel gas pattern. No pneumoperitoneum. 3. 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 Tam Ledesma MD Chest X-Ray 01/07/17 1453 Signed Impressions: Service Date/Time: Saturday, January 07, 2017 15:10 - CONCLUSION: 1. No acute cardiopulmonary disease. Aneurysmal dilatation of the thoracic arch. Broderick Chan MD Aorta CTA 01/07/17 6773 Signed Impressions: Service Date/Time: Saturday, January 07, 2017 15:41 - CONCLUSION: Dissection as described above. The right renal artery is predominantly in the false lumen. Mesenteric arteries are in the true lumen. This does not extend over the arch. 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 creatinine increased; 1. BP control with goal SBP 110 - beta blockade 2. if nausea resolves, ok to have po; in meantime, have given bolus and resumed IVF; FENa suggestive of pre-renal; duplex shows good arterial up-stroke in distal R RA despite predominant FL perfusion 3. Watch for recurrent pain 4. Repeat CT in 48-72 hours pending symptoms and creatinine Antwon Scruggs MD FACS intermodal truck driver [facility] - Heart and Vascular Surgery at [facility] [phone] Antwon Scruggs MD Jan 08, 2017 13:21
[2017-01-08] MEDS: RESP: ALBUTEROL 2.5 MG/IPRATROPIUM 0.5 MG NEB (SCH) NEB ×3 (13:49→23:46)
[2017-01-08 13:52] LABS: HEMATOCRIT 39.1 % (39.0-51.0); MEAN CELL VOLUME 87.7 FL (80.0-100.0); MEAN CORPUSCULAR HEMOGLOBIN 30.4 PG (27.0-34.0); MEAN CORPUSCULAR HGB CONC 34.7 % (32.0-36.0); PLATELET COUNT 116 TH/MM3 (150-450); RED BLOOD COUNT 4.45 MIL/MM3 (4.50-5.90); REVIEW FLAG FINAL; WHITE BLOOD COUNT 10.7 TH/MM3 (4.0-11.0)
[2017-01-08] MEDS: METOPROLOL TARTRATE 25 MG TAB PO SCH ×2 (14:00→21:49)
[2017-01-08 14:19] LABS: ALT (GPT) 22 U/L (12-78); ANION GAP 7 MEQ/L (5-15); AST (GOT) 13 U/L (15-37); BICARBONATE 28.4 MEQ/L (21.0-32.0); BLOOD UREA NITROGEN 27 MG/DL (7-18); CHLORIDE 107 MEQ/L (98-107); GLOMERULAR FILTRATION RATE 23 ML/MIN (>89); POTASSIUM 3.7 MEQ/L (3.5-5.1); SODIUM (NA) 142 MEQ/L (136-145)
[2017-01-08 14:21] LABS: ALKALINE PHOSPHATASE 55 U/L (45-117); TOTAL BILIRUBIN ADULT 0.9 MG/DL (0.2-1.0)
--- NOTE | 2017-01-08 15:27 | RADRPT ---
EXAM DATE/TIME: 01/08/2017 14:16 [facility] COMPARISON: CHEST SINGLE AP, January 07, 2017, 15:10. INDICATIONS : Hypoxia MEDICAL HISTORY : Hypertension. SURGICAL HISTORY : Coronary artery stent. ENCOUNTER: Initial ACUITY: 1 day PAIN SCORE: 0/10 LOCATION: Bilateral chest FINDINGS: Single AP view of the chest. The lungs are clear. Cardiomediastinal silhouette within normal limits. No evidence of pleural effusion or pneumothorax. CONCLUSION: No acute cardiopulmonary disease identified. Alex Velasco MD on January 08, 2017 at 15:22 Board Certified Radiologist. This report was verified electronically.
[2017-01-08] MEDS ORDERED: PRAV40TA2 PO (15:31)
[2017-01-08] MEDS ORDERED: OMEP20TA PO (15:31)
[2017-01-08] MEDS ORDERED: AMLO5TAB2 PO (15:31)
[2017-01-08] MEDS ORDERED: OMEGCAP PO (15:31)
[2017-01-08] MEDS: cloNIDine HCL 0.2 MG TAB PO SCH ×2 (16:05→21:50)
[2017-01-08] MEDS ORDERED: SODIUM CHLOR 0.9% 1000 ML INJ 1,000 ML IV ONE (16:45)
[2017-01-08] MEDS ORDERED: BUMETANIDE INJ 1 MG/4 ML VIAL IV PUSH ONE ×2 (18:15→23:15)
--- NOTE | 2017-01-08 18:18 | PD.CONS ---
HPI Consult Requested By Reason for Consult Acute renal insufficiency. Uncertain if patient has a history of chronic CKD also. Primary Care Physician Ines Vences MD History of Present Illness This patient is an 81-year-old male. History primarily obtained from medical records as patient currently somewhat lethargic. The patient has a history of hypertension, coronary artery disease with previous PTCA. 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 Right renal artery lumen is said to be in the false lumen on CTA with impaired perfusion right kidney. Left kidney said to be reasonably well perfused. Subsequent ultrasound however indicating patent bilateral renal arteries. Admission creatinine level I.4. Unfortunately I have no renal indices available prior to this presently. Creatinine level has deteriorated to a level of 2.63 day of consultation. Patient's presenting blood pressure was 226/101. It has been treated aggressively to reduce his systolic pressure below 120. Despite aggressive IV hydration with normal saline patient's urine output has been somewhat poor. On questioning the patient he is unaware of any previous CKD. He was using Aleve day of admission. Review of Systems ROS Limitations: Clinical Condition Cardiovascular: COMPLAINS OF: Dyspnea on Exertion Past Family Social History Allergies: Coded Allergies: No Known Allergies (Unverified , 01/07/17) Past Medical History Hypertension Coronary artery disease BPH PTCA. Past Surgical History PTCA Reported Medications Reported Meds & Active Scripts Active Reported Pravastatin 40 Mg Tab 40 Mg PO DAILY [place]-3 Fish Oil/Vitamin (Fish Oil-Cholecalciferol) 1,000-1,000 Mg Cap 1 Cap PO DAILY Omeprazole 20 Mg Tab 20 Mg PO DAILY Amlodipine (Amlodipine Besylate) 5 Mg Tab 5 Mg PO DAILY Atenolol 50 Mg Tab 50 Mg PO DAILY Active Ordered Medications Current Medications Sodium Chloride (NS Flush) 2 ml UNSCH PRN IVF FLUSH AFTER USING IV ACCESS Last administered on 01/08/17 10:17; Start 01/07/17 at 15:00 Nitroglycerin 0.4 mg 0.4 mg Q5M SL Last administered on 01/07/17 15:25; Start 01/07/17 at 15:00; Stop 01/07/17 at 15:11; Status DC Nicardipine HCl/ Sodium Chloride (Cardene Inj/NS 250 ml Inj) 260 ml @ 0 mls/hr TITRATE ONCE IV Last administered on 01/07/17 16:17; Start 01/07/17 at 16:00 ; Stop 01/07/17 at 16:01; Status DC Iohexol (Omnipaque 350 Inj) 100 ml STK-MED ONCE IV Last administered on 15:53; Start 01/07/17 at 15:53; Stop 01/07/17 at 15:54; Status DC Morphine Sulfate (Morphine Inj) 2 mg ONCE ONCE IV PUSH Last administered on 16:15; Start 01/07/17 at 16:15; Stop 01/07/17 at 16:16; Status DC Labetalol HCl (Trandate Inj) 5 mg ONCE ONCE IV PUSH Last administered on 16:21; Start 01/07/17 at 16:30; Stop 01/07/17 at 16:31; Status DC Labetalol HCl (Trandate Inj) 2.5 mg ONCE ONCE IV PUSH Last administered on 18:45; Start 01/07/17 at 18:45; Stop 01/07/17 at 18:46; Status DC Labetalol HCl 2.5 mg 2.5 mg UNSCH X1 PRN IV PUSH SEE LABEL COMMENTS; Start at 18:45; Stop 01/07/17 at 23:59; Status DC Labetalol HCl 500 mg/Sodium Chloride 250 ml @ 0 mls/hr TITRATE IV Last administered on 01/07/17 19:23; Start 01/07/17 at 19:00; Stop 01/07/17 at 19:31 ; Status DC Potassium Chloride/Dextrose/ Sod Cl (D5-1/2 NS + KCl 20 Meq Inj) 1,000 ml @ 83 mls/hr Q12H3M IV ; Start 01/07/17 at 18:56; Status Hold Aspirin (Aspirin Chew) 81 mg DAILY PO Last administered on 01/08/17 10:00; Start 01/08/17 at 09:00 Pantoprazole Sodium (Protonix) 40 mg DAILY PO Last administered on 01/08/17 10 :00; Start 01/08/17 at 09:00 Atorvastatin Calcium (Lipitor) 40 mg HS PO Last administered on 01/07/17 22:39 ; Start 01/07/17 at 21:00 Oxycodone HCl (Roxicodone) 5 mg Q4H PRN PO PAIN SCALE 1 TO 5 Last administered on 01/07/17 22:50; Start 01/07/17 at 19:00 Morphine Sulfate (Morphine Inj) 2 mg Q1H PRN IV BREAKTHROUGH PAIN; Start at 19:00 Enoxaparin Sodium (Lovenox Inj) 30 mg Q24H SQ Last administered on 01/07/17 22 :38; Start 01/07/17 at 20:00 Labetalol HCl 10 mg 10 mg BOLUS ONCE IV PUSH ; Start 01/07/17 at 19:15; Stop at 19:27; Status DC Labetalol HCl/ Sodium Chloride (Trandate Inj/NS Inj) 250 ml @ 0 mls/hr TITRATE IV Last administered on 01/08/17 16:05; Start 01/07/17 at 21:00 Ondansetron HCl 4 mg 4 mg Q6HR PRN IV PUSH NAUSEA Last administered on 14:44; Start 01/07/17 at 21:45 Sodium Chloride 1,000 ml @ 1 mls/hr Q24H IV Last administered on 01/08/17 09: 15; Start 01/08/17 at 09:15 Potassium Chloride/Sodium Chloride 1,000 ml @ 100 mls/hr Q10H IV Last administered on 01/08/17 10:48; Start 01/08/17 at 09:15 Nicardipine HCl 25 mg/Sodium Chloride 260 ml @ 0 mls/hr TITRATE ONCE IV ; Start 01/08/17 at 12:15; Stop 01/08/17 at 12:15; Status DC Nicardipine HCl/ Sodium Chloride (Cardene Inj/NS 250 ml Inj) 260 ml @ 0 mls/hr TITRATE IV Last administered on 01/08/17 18:15; Start 01/08/17 at 12:15 Clonidine (Catapres) 0.2 mg Q8HR PO Last administered on 01/08/17 16:05; Start 01/08/17 at 14:00 Amlodipine Besylate (Norvasc) 5 mg DAILY PO Last administered on 01/08/17 16: 05; Start 01/08/17 at 12:45 Metoprolol Tartrate (Lopressor) 25 mg Q8HR PO ; Start 01/08/17 at 14:00 Albuterol/ Ipratropium (Duoneb Neb) 1 ampule Q4HR NEB NEB Last administered on 01/08/17 13:49; Start 01/08/17 at 16:00 Albuterol/ Ipratropium 1 ampule 1 ampule Q2HR NEB PRN NEB SHORTNESS OF BREATH; Start 01/08/17 at 13:15 Sodium Chloride (NS 1000 ml Inj) 1,000 ml @ 999 mls/hr BOLUS ONCE IV Last administered on 01/08/17 16:45; Start 01/08/17 at 16:45; Stop 01/08/17 at 17:45 ; Status DC Bumetanide (Bumex Inj) 1 mg ONCE ONCE IV PUSH ; Start 01/08/17 at 18:15; Stop 01/08/17 at 18:22; Status DC Acetylcysteine (Mucomyst 20% Liq) 1,200 mg BID PO ; Start 01/08/17 at 21:00 Family History Noncontributory to current complaint. Social History As per H&P. Physical Exam Vital Signs Vital Signs Date Time Temp Pulse Resp B/P Pulse Ox O2 Delivery O2 Flow Rate FiO2 01/08/17 15:36 74 01/08/17 15:36 97.8 74 18 139/68 96 155/56 01/08/17 11:30 97.9 80 18 131/64 146/52 01/08/17 11:29 72 01/08/17 10:25 97 Nasal Cannula 3.00 01/08/17 08:51 97.7 80 18 116/45 94 115/60 01/08/17 07:00 75 01/08/17 05:00 97.0 78 20 100/67 93 113/45 01/08/17 04:00 72 01/08/17 00:00 75 01/07/17 23:59 18 01/07/17 23:16 97.6 74 20 93/50 92 93/49 01/07/17 20:10 93 Nasal Cannula 3.00 01/07/17 20:00 72 01/07/17 19:00 20 158/61 95 01/07/17 18:24 97 Nasal Cannula 2.00 Physical Exam GENERAL: Elderly male lying in bed not in respiratory distress. Denying any flank pain. SKIN: Warm and dry. HEAD: Normocephalic. EYES: No scleral icterus. No injection or drainage. NECK: Supple, trachea midline. No JVD or lymphadenopathy. CARDIOVASCULAR: Regular rate and rhythm without murmurs, gallops, or rubs. RESPIRATORY: Breath sounds equal bilaterally. No accessory muscle use. GASTROINTESTINAL: Abdomen soft, non-tender, nondistended. No abdominal bruit audible. MUSCULOSKELETAL: No cyanosis, or edema. BACK: Nontender without obvious deformity. Laboratory Laboratory Tests Test 01/07/17 01/08/17 01/08/17 01/08/17 22:30 00:45 05:15 13:30 Troponin I LESS THAN 0.02 LESS THAN 0.02 Urine Color YELLOW Urine Turbidity CLEAR Urine pH 6.0 Urine Specific [place] GREATER THAN 1.050 Urine Protein 30 Urine Glucose (UA) NEG Urine Ketones TRACE Urine Occult Blood NEG Urine Nitrite NEG Urine Bilirubin NEG Urine Urobilinogen LESS THAN 2.0 Urine Leukocyte Esterase NEG Urine RBC 2 Urine WBC 1 Urine Squamous Epithelial <1 Cells Urine Renal Epithelial Cells <1 Urine Bacteria RARE Urine Mucus FEW Microscopic Urinalysis Comment CATH Urine Random Creatinine 104.7 Urine Random Sodium 50 White Blood Count 9.7 10.7 Red Blood Count 4.79 4.45 Hemoglobin 14.3 13.5 Hematocrit 42.1 39.1 Mean Corpuscular Volume 88.0 87.7 Mean Corpuscular Hemoglobin 29.8 30.4 Mean Corpuscular Hemoglobin 33.8 34.7 Concent Red Cell Distribution Width 13.9 14.0 Platelet Count 130 116 Mean Platelet Volume 10.3 9.3 Neutrophils (%) (Auto) 81.0 Lymphocytes (%) (Auto) 10.5 Monocytes (%) (Auto) 8.4 Eosinophils (%) (Auto) 0.0 Basophils (%) (Auto) 0.1 Neutrophils # (Auto) 7.9 Lymphocytes # (Auto) 1.0 Monocytes # (Auto) 0.8 Eosinophils # (Auto) 0.0 Basophils # (Auto) 0.0 CBC Comment DIFF FINAL Differential Comment Sodium Level 142 142 Potassium Level 4.3 3.7 Chloride Level 106 107 Carbon Dioxide Level 23.4 28.4 Anion Gap 13 7 Blood Urea Nitrogen 24 27 Creatinine 2.41 2.63 Estimat Glomerular Filtration 26 23 Rate Random Glucose 171 125 Calcium Level 8.4 8.0 Phosphorus Level 3.0 Magnesium Level 1.9 Total Bilirubin 0.9 0.9 Aspartate Amino Transf 15 13 (AST/SGOT) Alanine Aminotransferase 23 22 (ALT/SGPT) Alkaline Phosphatase 61 55 Total Protein 6.4 6.2 Albumin 3.3 3.3 Test 01/08/17 17:00 Lactic Acid Level 1.6 Result Diagram: 01/08/17 1330 01/08/17 1330 Imaging Last 48 hours Impressions Renal Ultrasound 01/08/17 0000 Signed Impressions: Service Date/Time: December 08:52 - CONCLUSION: Kidneys within normal limits. Renal arteries patent. Alex Velasco MD Chest X-Ray 01/08/17 0000 Signed Impressions: Service Date/Time: December 14:16 - CONCLUSION: No acute cardiopulmonary disease identified. Alex Velasco MD Abdomen X-Ray 01/08/17 0000 Signed Impressions: Service Date/Time: December 10:06 - CONCLUSION: 1. Contrast within the renal collecting systems bilaterally. 2. Nonobstructive bowel gas pattern. No pneumoperitoneum. 3. 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 Tam Ledesma MD Chest X-Ray 01/07/17 1453 Signed Impressions: Service Date/Time: Saturday, January 07, 2017 15:10 - CONCLUSION: 1. No acute cardiopulmonary disease. Aneurysmal dilatation of the thoracic arch. Broderick Chan MD Aorta CTA 01/07/17 1453 Signed Impressions: Service Date/Time: Saturday, January 07, 2017 15:41 - CONCLUSION: Dissection as described above. The right renal artery is predominantly in the false lumen. Mesenteric arteries are in the true lumen. This does not extend over the arch. Andrew Lopez MD FACR Assessment and Plan Problem List: (1) Acute kidney insufficiency Plan: Difficult to say what the primary etiology of patient's acute renal insufficiency is. Patient may well have developed contrast nephrotoxicity on presentation after CTA. In addition the patient was severely hypertension on presentation and necessary reduction in blood pressure may have reduced renal perfusion secondary to previous autoregulation. Remains be determined whether not the patient has developed an ATN. In addition the patient is at significant risk for development of impaired renal perfusion secondary to his aortic dissection. So far however there is mention of involvement of the right kidney as far as the aneurysm is concerned while the left renal artery appears to be uninvolved so rising creatinine level would be somewhat higher than I would expect if there was significant reduction in renal perfusion of a solitary kidney related to the aneurysm. Agree with monitoring of AST, ALT LDH. An additional CTA is apparently planned to follow- up arterial dissection and the risk-benefit ratio has to be considered as far as repeat exposure to contrast is concerned in the setting of his acute renal insufficiency. I will defer the decision regarding repeat CTA to vascular surgery however. Continue IV normal saline for the present as the patient does not appear to be volume overloaded. I will also order Mucomyst 1200 mg twice a day which may possibly be beneficial as far as reducing risk of further contrast exposure to the kidney.. Also in the differential is possible he the patient may have developed cholesterol embolic disease to the kidney which can result in severe glomerular injury. We'll check urinary eosinophils as well as serum complements which may be altered by atheroembolic disease. There is no evidence of this however peripherally. If the patient has sustained significant contrast injury it will have to run its course as there is no specific treatment for same. Will administer 1 dose of bumetanide in the hope of converting the patient to a nonoliguric state. Medications should be adjusted for the patient's estimated GFR if clinically indicated. Avoid agents with significant potential for nephrotoxicity possible including NSAIDs for analgesia, . Would also avoid MORENA inhibitor and angiotensin receptor blockers at this time.. Gadolinium is contraindicated if the GFR is below 30. The patient was counseled regarding above. (2) Abdominal aortic aneurysm dissection Plan: Management per vascular surgery. (3) Oliguria Plan: As above. (4) HTN (hypertension) Plan: Defer management to vascular surgery for the present time. Dionisio Oden MD Jan 08, 2017 18:18
[2017-01-08] MEDS: ENOXAPARIN SODIUM 30 MG/0.3 ML SYRINGE SQ SCH (20:42)
[2017-01-08] MEDS: ATORVASTATIN 40 MG TAB PO SCH (21:56)
[2017-01-08] MEDS: ACETYLCYSTEINE 20% 6,000 MG/30 ML ORAL SOLN VIAL PO SCH (22:33)
[2017-01-08] MEDS ORDERED: amLODIPine BESYLATE 5 MG TAB PO ONE (23:15)
[2017-01-08 23:50] LABS: HDL CHOLESTEROL 41.5 MG/DL (40.0-60.0)
[2017-01-09] VITALS (9 sets, daily range): BP systolic 102–147; BP diastolic 36–72; PULSE 66–85; RESP 16–20; TEMP 97.7–98.2; O2SAT 93–95
[2017-01-09] MEDS: RESP: ALBUTEROL 2.5 MG/IPRATROPIUM 0.5 MG NEB (SCH) NEB ×5 (03:55→20:26)
[2017-01-09] MEDS ORDERED: METOPROLOL TARTRATE 25 MG TAB PO SCH (04:00)
[2017-01-09] MEDS: cloNIDine HCL 0.2 MG TAB PO SCH (05:28)
[2017-01-09 05:41] LABS: AUTOMATED NEUTROPHIL # 7.7 TH/MM3 (1.8-7.7); BASOPHIL % 0.1 % (0.0-2.0); EOSINOPHIL % 0.4 % (0.0-4.0); HEMATOCRIT 34.8 % (39.0-51.0); HEMO FLAGS DIFF FINAL; LYMPH % 14.3 % (9.0-44.0); LYMPHOCYTE # 1.5 TH/MM3 (1.0-4.8); MEAN CELL VOLUME 88.1 FL (80.0-100.0); MEAN CORPUSCULAR HEMOGLOBIN 30.7 PG (27.0-34.0); MEAN CORPUSCULAR HGB CONC 34.9 % (32.0-36.0); MONO % 10.8 % (0.0-8.0); NEUT % 74.4 % (16.0-70.0); PLATELET COUNT 103 TH/MM3 (150-450); RED BLOOD COUNT 3.94 MIL/MM3 (4.50-5.90); RED CELL DISTRIBUTION WIDTH 13.6 % (11.6-17.2); WHITE BLOOD COUNT 10.3 TH/MM3 (4.0-11.0)
[2017-01-09 06:16] LABS: BICARBONATE 24.2 MEQ/L (21.0-32.0); POTASSIUM 3.9 MEQ/L (3.5-5.1)
--- NOTE | 2017-01-09 08:34 | HHI.CCPN ---
Subjective Remarks/Hospital Course 81 yo WM with past medical history of hypertension, hyperlipidemia, coronary artery disease with stents 2 placed 17 years ago who presented to [facility] after he developed the sudden onset of severe chest pain at 11:45 this morning. He states the pain feels like pressure in the epigastrium and left chest and radiates to the back. It was associated with diaphoresis. He states that he could not get comfortable and that nothing would relieve his severe pain so he was transported to the hospital by [facility]. Workup demonstrated troponin of 0.02. With EKG showing sinus bradycardia with first-degree AV block and no ST or T-wave abnormalities. 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 The mesenteric arteries or in the true lumen and the right renal artery is in the false lumen. His blood pressure upon presentation was 226/ 101. He was started on a nicardipine drip which is currently going at 15 mg per hour and blood pressure is 149/59. He is being started on a labetalol drip to target systolic blood pressure less than 110. He reports persistent pain in his epigastrium and left flank and complains of thirst. 12/29/16: BP improved control on Labetalol gtt. NPO now. Once cleared by vascular surgery, will start PO antihypertensives. Target less than 110. Creat worsened from 1.4 to 2.4. Nephrology consulted 01/09: still on clevidipine. Cr plateaued at 2.7. uop adequate. no complaints. Objective Vital Signs Date Time Temp Pulse Resp B/P Pulse Ox O2 Delivery O2 Flow Rate FiO2 01/09/17 07:19 93 Nasal Cannula 6.00 01/09/17 07:00 66 01/09/17 07:00 98.1 20 126/62 135/45 Intake and Output 01/08/17 01/08/17 01/09/17 08:00 16:00 00:00 Intake Total 795 ml 2890 ml Output Total 775 ml 1000 ml Balance 20 ml 1890 ml Result Diagram: 01/09/1750901/09/17509 Objective Remarks GENERAL: elderly male, lying in bed. SKIN: Warm and dry, well perfused HEAD: Atraumatic. Normocephalic. EYES: Pupils equal and round. No scleral icterus. No injection or drainage. ENT: No nasal bleeding or discharge. Mucous membranes pink and moist. NECK: Trachea midline. Neck veins are flat CARDIOVASCULAR: Regular rate and rhythm. No murmurs. RESPIRATORY: No accessory muscle use. Clear to auscultation. Breath sounds equal bilaterally. GASTROINTESTINAL: Abdomen soft, protuberant but nondistended. No tenderness to palpation. There is no rebound or guarding. MUSCULOSKELETAL/VASC: Extremities without clubbing, cyanosis, or edema. DPs and posterior tibial artery pulses are palpable bilaterally. Feet are warm and well perfused. NEUROLOGICAL: Awake and alert, RASS 0. A/P Assessment and Plan Assessment: 81yM with acute type B dissection complicated by hypertensive emergency and acute kidney injury. his BRYCE is plateauing. I still think based on physical exam and laboratory data that he is intravascularly hypovolemic and continues to need ongoing ivf resuscitation. NEURO: Pain secondary to aortic dissection Oxycodone 5 mg by mouth every 4 hours when necessary pain. Morphine 2 mg IV every hours when necessary breakthrough pain. RESP: Nasal cannula wean as tolerated. IS every hour awake. OOB to chair. PT consult. CV: Type B aortic dissection 1st degree AVB Hyperlipidemia Liberalize SBP goal to < 130. start hydralazine 100mg po q8hr start metoprolol 75mg po q6h hydralazine/labetalol prn clevidipine infusion to achieve goal. Aspirin 81 mg daily Lipitor 40 mg daily at bedtime GI: Ice chips. slowly advance diet. FEN/RENAL: Acute kidney failure -with unknown baseline creatinine. IVF NS 1L and 1/2 NS with 20 K at 100 per hour -continue morales catheter. continue ivf resuscitation. - icu electrolyte protocol. - nephrology following. ID: Monitor for signs and symptoms of infection HEME: No acute hematologic issues ENDO: Euglycemic PROPH: Protonix 40 mg by mouth daily for stress ulcer prophylaxis. Lovenox 30 mg subcutaneous every 24 hours for DVT prophylaxis ACCESS: Right radial art line placed 01/07/17. will keep this today given ongoing hypertension. Discussed with Dr. Scruggs and bedside RN. Patient updated regarding plan of care. Jake Durand MD Jan 09, 2017 08:34
[2017-01-09] MEDS ORDERED: hydrALAZINE HCL 20 MG/ML VIAL IV PUSH PRN (08:45)
--- NOTE | 2017-01-09 08:47 | PD.VS.PN ---
Subjective Subjective/Hospital Course Pt adm with aTBAD - no pain. Yesterday, UOP dropped and O2 sats dropped, responded to NC O2. Also had emesis. KUB unremarkably and abdomen completely benign on exam Somnolent this morning. Objective Vitals/I&O Date Time Temp Pulse Resp B/P Pulse Ox O2 Delivery O2 Flow Rate FiO2 01/09/17 07:19 93 Nasal Cannula 6.00 01/09/17 07:00 66 01/09/17 07:00 98.1 66 20 126/62 94 135/45 01/09/17 04:00 72 01/09/17 04:00 97.7 72 20 124/62 94 128/39 01/09/17 00:00 97.9 74 16 106/60 95 102/39 01/09/17 00:00 74 01/08/17 20:38 95 Nasal Cannula 6.00 01/08/17 20:00 98.1 74 18 119/88 96 125/48 01/08/17 20:00 74 01/08/17 15:36 74 01/08/17 15:36 97.8 74 18 139/68 96 155/56 01/08/17 11:30 97.9 80 18 131/64 146/52 01/08/17 11:29 72 01/08/17 10:25 97 Nasal Cannula 3.00 01/08/17 08:51 97.7 80 18 116/45 94 115/60 01/09/17 01/09/17 01/09/17 07:00 15:00 23:00 Intake Total 2694 ml Output Total 685 ml Balance 2009 ml Physical Exam Resting comfortably, no abdominal tenderness to palpation Laboratory Laboratory Tests Test 01/08/17 01/08/17 01/08/17 01/09/17 13:30 17:00 20:10 05:10 White Blood Count 10.7 10.3 Red Blood Count 4.45 3.94 Hemoglobin 13.5 12.1 Hematocrit 39.1 34.8 Mean Corpuscular Volume 87.7 88.1 Mean Corpuscular Hemoglobin 30.4 30.7 Mean Corpuscular Hemoglobin 34.7 34.9 Concent Red Cell Distribution Width 14.0 13.6 Platelet Count 116 103 Mean Platelet Volume 9.3 10.1 Sodium Level 142 142 Potassium Level 3.7 3.9 Chloride Level 107 109 Carbon Dioxide Level 28.4 24.2 Anion Gap 7 9 Blood Urea Nitrogen 27 30 Creatinine 2.63 2.61 Estimat Glomerular Filtration 23 24 Rate Random Glucose 125 103 Calcium Level 8.0 7.5 Total Bilirubin 0.9 Aspartate Amino Transf 13 14 (AST/SGOT) Alanine Aminotransferase 22 18 (ALT/SGPT) Alkaline Phosphatase 55 Total Protein 6.2 Albumin 3.3 2.9 Lactic Acid Level 1.6 Urine Eosinophils NONE SEEN Neutrophils (%) (Auto) 74.4 Lymphocytes (%) (Auto) 14.3 Monocytes (%) (Auto) 10.8 Eosinophils (%) (Auto) 0.4 Basophils (%) (Auto) 0.1 Neutrophils # (Auto) 7.7 Lymphocytes # (Auto) 1.5 Monocytes # (Auto) 1.1 Eosinophils # (Auto) 0.0 Basophils # (Auto) 0.0 CBC Comment DIFF FINAL Differential Comment Phosphorus Level 2.5 Lactate Dehydrogenase 147 Complement C3 105 Complement C4 18 Imaging Last 48 hours Impressions Renal Ultrasound 01/08/17 0000 Signed Impressions: Service Date/Time: December 08:52 - CONCLUSION: Kidneys within normal limits. Renal arteries patent. Alex Velasco MD Chest X-Ray 01/08/17 0000 Signed Impressions: Service Date/Time: December 14:16 - CONCLUSION: No acute cardiopulmonary disease identified. Alex Velasco MD Abdomen X-Ray 01/08/17 0000 Signed Impressions: Service Date/Time: December 10:06 - CONCLUSION: 1. Contrast within the renal collecting systems bilaterally. 2. Nonobstructive bowel gas pattern. No pneumoperitoneum. 3. 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 Tam Ledesma MD Chest X-Ray 01/07/17 1453 Signed Impressions: Service Date/Time: Saturday, January 07, 2017 15:10 - CONCLUSION: 1. No acute cardiopulmonary disease. Aneurysmal dilatation of the thoracic arch. Broderick Chan MD Aorta CTA 01/07/17 1453 Signed Impressions: Service Date/Time: Saturday, January 07, 2017 15:41 - CONCLUSION: Dissection as described above. The right renal artery is predominantly in the false lumen. Mesenteric arteries are in the true lumen. This does not extend over the arch. 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 creatinine increased, likely predominantly pre-renal 1. BP control with goal SBP 110 - beta blockade 2. nausea seems to have subsided - likely medication related. Clinically, not mesenteric ischemia nor SBO. ok to have po 3. ATN - likely pre-renal with add'l insult of necessary contrast. Given how good he looks clinically, will hold off repeat CTA until renal function normalizes. Cr 2.6 from 2.6 yesterday. 3. Watch for recurrent pain 4. Repeat CT at some point pending symptoms and creatinine 5. OOB TC Antwon Scruggs MD FACS maintenance service supervisor [facility] V[facility] at [facility] [phone] Antwon Scruggs MD Jan 09, 2017 08:47
[2017-01-09] MEDS: SODIUM CHLORID 0.9% 500 ML INJ 1,000 ML IV SCH (09:15)
[2017-01-09] MEDS: 1/2 NS + KCL 20 MEQ INJ 1,000 ML IV SCH ×2 (09:29→14:55)
[2017-01-09] MEDS: CLEVIDIPINE INJ 50 ML IV SCH ×5 (09:29→23:09)
[2017-01-09] MEDS: ASPIRIN 81 MG CHEW TAB PO SCH (09:30)
[2017-01-09] MEDS: PANTOPRAZOLE SOD 40 MG DELAYED RELEASE TAB PO SCH (09:30)
[2017-01-09] MEDS: ACETYLCYSTEINE 20% 6,000 MG/30 ML ORAL SOLN VIAL PO SCH ×2 (09:31→21:05)
[2017-01-09] MEDS: amLODIPine BESYLATE 5 MG TAB PO SCH (09:56)
[2017-01-09] MEDS: hydrALAZINE HCL 100 MG TAB PO SCH ×3 (09:56→20:51)
[2017-01-09] MEDS ORDERED: METOPROLOL TARTRATE 50 MG TAB PO SCH (10:00)
--- NOTE | 2017-01-09 11:46 | HHI.NPPN ---
Subjective History of Present Illness This patient is an 81-year-old male. The patient has a history of hypertension, coronary artery disease with previous PTCA. 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 Right renal artery lumen is said to be in the false lumen on CTA with impaired perfusion right kidney. Left kidney said to be reasonably well perfused. Subsequent ultrasound however indicating patent bilateral renal arteries. Admission creatinine level I.4. Unfortunately I have no renal indices available prior to this presently. Creatinine level has deteriorated to a level of 2.63 day of consultation. Patient's presenting blood pressure was 226/101. It has been treated aggressively to reduce his systolic pressure below 120. Despite aggressive IV hydration with normal saline patient's urine output has been somewhat poor. On questioning the patient he is unaware of any previous CKD. He was using Aleve day of admission. Interval History Patient more alert today sitting out of bed. Comfortable. Apparently received 2 doses of bumetanide 1 mg yesterday. Review of Systems General Constitutional: Fatigue Objective Data Data 01/08/17 01/09/17 19:00 07:00 Intake Total 2890 ml 2694 ml Output Total 1000 ml 685 ml Balance 1890 ml 2009 ml Intake Oral 240 ml 300 ml IV Total 2650 ml 2394 ml Output Urine Total 200 ml 685 ml Emesis 800 ml # Bowel Movements 0 0 Vital Signs Date Time Temp Pulse Resp B/P Pulse Ox O2 Delivery O2 Flow Rate FiO2 01/09/17 11:00 97.7 70 20 127/64 95 122/36 01/09/17 11:00 70 01/09/17 07:19 93 Nasal Cannula 6.00 01/09/17 07:00 66 01/09/17 07:00 98.1 66 20 126/62 94 135/45 01/09/17 04:00 72 01/09/17 04:00 97.7 72 20 124/62 94 128/39 01/09/17 00:00 97.9 74 16 106/60 95 102/39 01/09/17 00:00 74 01/08/17 20:38 95 Nasal Cannula 6.00 01/08/17 20:00 98.1 74 18 119/88 96 125/48 01/08/17 20:00 74 01/08/17 15:36 74 01/08/17 15:36 97.8 74 18 139/68 96 155/56 -: 01/09/17 0510 01/09/17 0510 Medication Review Current Medications Sodium Chloride (NS Flush) 2 ml UNSCH PRN IVF FLUSH AFTER USING IV ACCESS Last administered on 01/08/17 10:17; Start 01/07/17 at 15:00 Nitroglycerin 0.4 mg 0.4 mg Q5M SL Last administered on 01/07/17 15:25; Start 01/07/17 at 15:00; Stop 01/07/17 at 15:11; Status DC Nicardipine HCl/ Sodium Chloride (Cardene Inj/NS 250 ml Inj) 260 ml @ 0 mls/hr TITRATE ONCE IV Last administered on 01/07/17 16:17; Start 01/07/17 at 16:00 ; Stop 01/07/17 at 16:01; Status DC Nicardipine HCl/ Sodium Chloride (Cardene Inj/NS 250 ml Inj) 260 ml @ 0 mls/hr TITRATE IV Last administered on 01/08/17 18:15; Start 01/08/17 at 12:15 Albuterol/ Ipratropium (Duoneb Neb) 1 ampule Q4HR NEB NEB Last administered on 01/09/17 10:29; Start 01/08/17 at 16:00 Albuterol/ Ipratropium 1 ampule 1 ampule Q2HR NEB PRN NEB SHORTNESS OF BREATH; Start 01/08/17 at 13:15 Acetylcysteine (Mucomyst 20% Liq) 1,200 mg BID PO Last administered on 09:31; Start 01/08/17 at 21:00 Clevidipine (Cleviprex Inj) 50 ml @ 0 mls/hr TITRATE IV Last administered on 09:29; Start 01/08/17 at 23:15 Amlodipine Besylate (Norvasc) 10 mg DAILY PO Last administered on 01/09/17 09: 56; Start 01/09/17 at 09:00 Clonidine (Catapres) 0.3 mg Q8HR PO ; Start 01/09/17 at 14:00 Metoprolol Tartrate (Lopressor) 50 mg Q6H PO Last administered on 01/09/17 09: 30; Start 01/09/17 at 10:00 Hydralazine HCl (Apresoline) 100 mg Q8HR PO Last administered on 01/09/17 09: 56; Start 01/09/17 at 09:00 Hydralazine HCl (Apresoline Inj) 10 mg Q30M PRN IV PUSH for sbp > 130; Start at 08:45 Labetalol HCl (Trandate Inj) 20 mg Q2H PRN IV PUSH sbp > 130; Start 01/09/17 at 08:45 Physical Exam General Appearance: No Acute Distress, Comfortable Eyes Eye Exam: Sclera White Pulmonary Resp Exam: Clear Bilaterally, Breath Sounds Equal, No Distress Cardiology CV Exam: Regular, Normal Sinus Rhythm, Good Perfusion Gastrointestinal/Abdomen GI Exam: Soft, Non-Tender Integumentary Skin Exam: Clear, Warm, Normal Turgor Extremeties Extremities Exam: No Edema Assessment/Plan Discussed Condition With: Patient Problem List: (1) Acute kidney insufficiency Plan: Difficult to say what the primary etiology of patient's acute renal insufficiency is. Patient may well have developed contrast nephrotoxicity on presentation after CTA. In addition the patient was severely hypertension on presentation and necessary reduction in blood pressure may have reduced renal perfusion secondary to previous autoregulation. Remains be determined whether not the patient has developed an ATN. In addition the patient is at significant risk for development of impaired renal perfusion secondary to his aortic dissection. So far however there is mention of involvement of the right kidney as far as the aneurysm is concerned while the left renal artery appears to be uninvolved so rising creatinine level would be somewhat higher than I would expect if there was significant reduction in renal perfusion of a solitary kidney related to the aneurysm. Agree with monitoring of AST, ALT LDH. An additional CTA is apparently planned to follow- up arterial dissection and the risk-benefit ratio has to be considered as far as repeat exposure to contrast is concerned in the setting of his acute renal insufficiency. I will defer the decision regarding repeat CTA to vascular surgery however. Also in the differential is possible he the patient may have developed cholesterol embolic disease to the kidney which can result in severe glomerular injury. We'll check urinary eosinophils as well as serum complements which may be altered by atheroembolic disease. There is no evidence of this however peripherally. If the patient has sustained significant contrast injury it will have to run its course as there is no specific treatment for same. Patient's urine output has improved and his creatinine is relatively stable. Medications should be adjusted for the patient's estimated GFR if clinically indicated. Avoid agents with significant potential for nephrotoxicity possible including NSAIDs for analgesia, . Would also avoid MORENA inhibitor and angiotensin receptor blockers at this time.. Gadolinium is contraindicated if the GFR is below 30. The patient was counseled regarding above. (2) Abdominal aortic aneurysm dissection Plan: Management per vascular surgery. (3) Oliguria Plan: As above. (4) HTN (hypertension) Plan: Defer management to vascular surgery for the present time. Noted patient is being started on the short acting calcium channel irasema Clevidipine. Also on hydralazine the beta irasema. Plan Total time spent in direct patient care 38 minutes. Dionisio Oden MD Jan 09, 2017 11:46
[2017-01-09] MEDS: cloNIDine HCL 0.3 MG TAB PO SCH ×2 (13:48→22:17)
[2017-01-09] MEDS ORDERED: PILL SPLITTER OTHER PRN (15:15)
[2017-01-09] MEDS: METOPROLOL TARTRATE 50 MG TAB PO SCH ×2 (15:47→20:51)
[2017-01-09] MEDS: LABETALOL HCL 100 MG/20 ML VIAL IV PUSH PRN (17:51)
[2017-01-09] MEDS: ATORVASTATIN 40 MG TAB PO SCH (20:51)
[2017-01-09] MEDS: ENOXAPARIN SODIUM 30 MG/0.3 ML SYRINGE SQ SCH (20:51)
--- NOTE | 2017-01-09 22:51 | RADRPT ---
EXAM DATE/TIME: 01/09/2017 22:29 [facility] COMPARISON: CHEST SINGLE AP, January 08, 2017, 14:16. INDICATIONS : Shortness of breath MEDICAL HISTORY : Hypertension. SURGICAL HISTORY : Coronary artery stent ENCOUNTER: Initial ACUITY: 1 day PAIN SCORE: 0/10 LOCATION: Bilateral chest FINDINGS: Bibasilar patchiness is noted consistent with interval development of atelectasis, pneumonia and/or p ulmonary edema. Clinical correlation is recommended. The heart is stable. Degenerative changes and s coliosis of the thoracolumbar spine are noted. CONCLUSION: 1. Bibasilar patchiness consistent with interval development of atelectasis, infiltrates and/or pulmo nary congestion. Clinical correlation is recommended. 2. Degenerative changes and scoliosis of the thoracolumbar spine. Antwon Nieves MD on January 09, 2017 at 22:47 Board Certified Radiologist. This report was verified electronically.
[2017-01-10] VITALS (12 sets, daily range): BP systolic 106–163; BP diastolic 44–78; PULSE 77–95; RESP 16–23; TEMP 98.1–99.7; O2SAT 86–98
[2017-01-10] MEDS: CLEVIDIPINE INJ 50 ML IV SCH ×5 (00:54→12:08)
[2017-01-10] MEDS: LABETALOL HCL 100 MG/20 ML VIAL IV PUSH PRN (00:59)
[2017-01-10] MEDS: RESP: ALBUTEROL 2.5 MG/IPRATROPIUM 0.5 MG NEB (SCH) NEB ×6 (02:46→20:24)
[2017-01-10] MEDS ORDERED: BUMETANIDE INJ 1 MG/4 ML VIAL IV PUSH ONE ×2 (04:00→16:30)
[2017-01-10 04:27] LABS: BLOOD GAS CARBOXYHEMOGLOBIN 1.4 % (0-4); BLOOD GAS HCO3 19 mmol/L (22-26); BLOOD GAS METHEMOGLOBIN 1.1 % (0-2); BLOOD GAS O2 HGB SATURATION 94 % (90-100); BLOOD GAS OXYGEN CONTENT 16.8 Vol % (12.0-20.0); BLOOD GAS PCO2 28 mmHg (38-42); BLOOD GAS PO2 81 mmHg (61-120); BLOOD GAS TOTAL HGB 12.7 G/DL (12.0-16.0); CRITICAL VALUE NO; TEMP CORR TO 98.6
[2017-01-10] MEDS: METOPROLOL TARTRATE 50 MG TAB PO SCH ×2 (04:27→09:44)
[2017-01-10 04:28] LABS: FIO2 55 %; OXYGEN DEVICE BIPAP; VENT SETTINGS IPAP12/EPAP5
[2017-01-10 04:29] LABS: DRAW SITE ALINE; STAT NO; ULNAR PULSE PRESENT
[2017-01-10 05:49] LABS: AUTOMATED NEUTROPHIL # 9.9 TH/MM3 (1.8-7.7); BASOPHIL % 0.3 % (0.0-2.0); EOSINOPHIL # 0.1 TH/MM3 (0-0.4); HEMATOCRIT 37.4 % (39.0-51.0); HEMO FLAGS DIFF FINAL; LYMPH % 8.1 % (9.0-44.0); MEAN CELL VOLUME 88.7 FL (80.0-100.0); MEAN CORPUSCULAR HEMOGLOBIN 29.5 PG (27.0-34.0); MEAN CORPUSCULAR HGB CONC 33.3 % (32.0-36.0); MONO % 8.3 % (0.0-8.0); NEUT % 82.3 % (16.0-70.0); PLATELET COUNT 102 TH/MM3 (150-450); RED BLOOD COUNT 4.21 MIL/MM3 (4.50-5.90); RED CELL DISTRIBUTION WIDTH 14.1 % (11.6-17.2)
[2017-01-10 06:06] LABS: BICARBONATE 20.7 MEQ/L (21.0-32.0)
[2017-01-10] MEDS: hydrALAZINE HCL 100 MG TAB PO SCH ×2 (06:16→14:00)
[2017-01-10] MEDS: cloNIDine HCL 0.3 MG TAB PO SCH ×3 (06:16→22:28)
--- NOTE | 2017-01-10 07:35 | PD.VS.PN ---
Subjective Subjective/Hospital Course Pt adm with aTBAD - no pain. Anxious last night and better with CPAP Good sats on CPAP CXR suggestive of pl effusions. No emesis Objective Vitals/I&O Date Time Temp Pulse Resp B/P Pulse Ox O2 Delivery O2 Flow Rate FiO2 01/10/17 02:54 94 55 01/10/17 02:47 94 Partial Rebreather 13.00 01/10/17 00:00 98.6 91 20 163/78 97 163/67 01/09/17 20:28 93 Nasal Cannula 5.00 01/09/17 20:00 98.2 85 20 144/72 94 147/54 01/09/17 15:03 74 01/09/17 15:02 97.7 74 16 123/60 95 131/45 01/09/17 11:00 97.7 70 20 127/64 95 122/36 01/09/17 11:00 70 Physical Exam Abdomen soft, NT Palp femoral pulses Laboratory Laboratory Tests Test 01/10/17 01/10/17 04:16 05:10 Blood Gas Puncture Site ROMAINE Blood Gas Patient Temperature 98.6 Blood Gas HCO3 19 Blood Gas Base Excess -5.0 Blood Gas Oxygen Saturation 94 Arterial Blood pH 7.44 Arterial Blood Partial 28 Pressure CO2 Arterial Blood Partial 81 Pressure O2 Arterial Blood Oxygen Content 16.8 Arterial Blood 1.4 Carboxyhemoglobin Arterial Blood Methemoglobin 1.1 Blood Gas Hemoglobin 12.7 Oxygen Delivery Device BIPAP Blood Gas Ventilator Setting IPAP12/EPAP5 Blood Gas Inspired Oxygen 55 White Blood Count 12.0 Red Blood Count 4.21 Hemoglobin 12.4 Hematocrit 37.4 Mean Corpuscular Volume 88.7 Mean Corpuscular Hemoglobin 29.5 Mean Corpuscular Hemoglobin 33.3 Concent Red Cell Distribution Width 14.1 Platelet Count 102 Mean Platelet Volume 10.5 Neutrophils (%) (Auto) 82.3 Lymphocytes (%) (Auto) 8.1 Monocytes (%) (Auto) 8.3 Eosinophils (%) (Auto) 1.0 Basophils (%) (Auto) 0.3 Neutrophils # (Auto) 9.9 Lymphocytes # (Auto) 1.0 Monocytes # (Auto) 1.0 Eosinophils # (Auto) 0.1 Basophils # (Auto) 0.0 CBC Comment DIFF FINAL Differential Comment Sodium Level 138 Potassium Level 4.0 Chloride Level 106 Carbon Dioxide Level 20.7 Anion Gap 11 Blood Urea Nitrogen 28 Creatinine 1.91 Estimat Glomerular Filtration 34 Rate Random Glucose 127 Calcium Level 7.7 Imaging Last 48 hours Impressions Chest X-Ray 01/09/17 0000 Signed Impressions: Service Date/Time: Monday, January 09, 2017 22:29 - CONCLUSION: 1. Bibasilar patchiness consistent with interval development of atelectasis, infiltrates and/or pulmonary congestion. Clinical correlation is recommended. 2. Degenerative changes and scoliosis of the thoracolumbar spine. Antwon Nieves MD Assessment and Plan Plan acute TBAD without complicating features at present. creatinine improving 1. BP control with goal SBP 130 - beta blockade 2. nausea seems to have subsided - likely medication related. Clinically, not mesenteric ischemia nor SBO. ok to have po once off CPAP 3. ATN - likely pre-renal with add'l insult of necessary contrast. Fluid mobilizing and am ok with gentle diuresis 3. Watch for recurrent pain 4. Repeat CT at some point pending symptoms and creatinine 5. OOB TC Antwon Scruggs MD FACS highway technician [facility] - [facility] V[facility] Surgery at [facility] [phone] Antwon Scruggs MD Jan 10, 2017 07:35
[2017-01-10] MEDS: PANTOPRAZOLE SOD 40 MG DELAYED RELEASE TAB PO SCH (08:42)
[2017-01-10] MEDS: amLODIPine BESYLATE 5 MG TAB PO SCH (08:42)
[2017-01-10] MEDS: ASPIRIN 81 MG CHEW TAB PO SCH (08:42)
[2017-01-10] MEDS: SODIUM CHLORID 0.9% 500 ML INJ 1,000 ML IV SCH (09:15)
[2017-01-10] MEDS: ACETYLCYSTEINE 20% 6,000 MG/30 ML ORAL SOLN VIAL PO SCH ×2 (10:04→22:31)
[2017-01-10] MEDS: 1/2 NS + KCL 20 MEQ INJ 1,000 ML IV SCH (11:15)
--- NOTE | 2017-01-10 11:57 | HHI.CCPN ---
Subjective Remarks/Hospital Course 81 yo WM with past medical history of hypertension, hyperlipidemia, coronary artery disease with stents 2 placed 17 years ago who presented to [facility] after he developed the sudden onset of severe chest pain at 11:45 this morning. He states the pain feels like pressure in the epigastrium and left chest and radiates to the back. It was associated with diaphoresis. He states that he could not get comfortable and that nothing would relieve his severe pain so he was transported to the hospital by [facility]. Workup demonstrated troponin of 0.02. With EKG showing sinus bradycardia with first-degree AV block and no ST or T-wave abnormalities. 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 The mesenteric arteries or in the true lumen and the right renal artery is in the false lumen. His blood pressure upon presentation was 226/ 101. He was started on a nicardipine drip which is currently going at 15 mg per hour and blood pressure is 149/59. He is being started on a labetalol drip to target systolic blood pressure less than 110. He reports persistent pain in his epigastrium and left flank and complains of thirst. 12/29/16: BP improved control on Labetalol gtt. NPO now. Once cleared by vascular surgery, will start PO antihypertensives. Target less than 110. Creat worsened from 1.4 to 2.4. Nephrology consulted 01/09: still on clevidipine. Cr plateaued at 2.7. uop adequate. no complaints. 01/10: still on clevidipine despite increasing anti-htn regimen. overnight became hypoxic requiring BiPAP. given bumex with good response and improvement in oxygenation. Objective Vital Signs Date Time Temp Pulse Resp B/P Pulse Ox O2 Delivery O2 Flow Rate FiO2 01/10/17 11:00 78 01/10/17 11:00 98.1 18 121/44 92 124/60 01/10/17 08:04 Partial Rebreather 10.00 01/10/17 02:54 55 Intake and Output 01/09/17 01/09/17 01/10/17 08:00 16:00 00:00 Intake Total 2694 ml 2300 ml Output Total 685 ml 350 ml Balance 2009 ml 1950 ml Result Diagram: 01/10/17 0510 01/10/17 0510 Other Results Laboratory Tests Test 01/10/17 04:16 Blood Gas Puncture Site ROMAINE Blood Gas Patient Temperature 98.6 Blood Gas HCO3 19 mmol/L (22-26) Blood Gas Base Excess -5.0 mmol/L (-2-2) Blood Gas Oxygen Saturation 94 % (90-100) Arterial Blood pH 7.44 (7.380-7.420) Arterial Blood Partial 28 mmHg (38-42) Pressure CO2 Arterial Blood Partial 81 mmHg Pressure O2 (61-120) Arterial Blood Oxygen Content 16.8 Vol % (12.0-20.0) Arterial Blood 1.4 % (0-4) Carboxyhemoglobin Arterial Blood Methemoglobin 1.1 % (0-2) Blood Gas Hemoglobin 12.7 G/DL (12.0-16.0) Oxygen Delivery Device BIPAP Blood Gas Ventilator Setting IPAP12/EPAP5 Blood Gas Inspired Oxygen 55 % Objective Remarks GENERAL: elderly male, lying in bed. SKIN: Warm and dry, well perfused HEAD: Atraumatic. Normocephalic. EYES: Pupils equal and round. No scleral icterus. No injection or drainage. ENT: No nasal bleeding or discharge. Mucous membranes pink and moist. NECK: Trachea midline. I do not appreciate any jvd today. CARDIOVASCULAR: Regular rate and rhythm. No murmurs. RESPIRATORY: No accessory muscle use. Clear to auscultation. Breath sounds equal bilaterally. GASTROINTESTINAL: Abdomen soft, protuberant but nondistended. No tenderness to palpation. MUSCULOSKELETAL/VASC: Extremities without clubbing, cyanosis, or edema. DPs and posterior tibial artery pulses are palpable bilaterally. Feet are warm and well perfused. NEUROLOGICAL: Awake and alert, RASS 0. A/P Assessment and Plan Assessment: 81yM with acute type B dissection complicated by hypertensive emergency and acute kidney injury. his BRYCE is downtrending. Clinically, he may be slightly volume overloaded this morning, but o2 requirement downtrending, uop adequate. also remains on clevidipine and BP still is a problem. will add additional oral agents and wean infusion as possible. Needs to remain in the ICU given his rapidly changing o2, volume status, and persistent hypertension. NEURO: Pain secondary to aortic dissection Oxycodone 5 mg by mouth every 4 hours when necessary pain. Morphine 2 mg IV every hours when necessary breakthrough pain. RESP: Nasal cannula wean as tolerated. IS every hour awake. OOB to chair. PT consult. 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 hydralazine 100mg po q8hr d/c metoprolol start labetalol 300mg po q6h d/c amlodipine start nifedipine 30mg q6h. prn labetalol/hydralazine iv. clevidipine infusion to achieve goal. Aspirin 81 mg daily Lipitor 40 mg daily at bedtime GI: Ice chips. slowly advance diet. FEN/RENAL: Acute kidney injury -with unknown baseline creatinine. -continue morales catheter. -stop ivf -will hold on further bumex right now. if o2 requirement changes, will re-dose bumex. - icu electrolyte protocol. - nephrology following. ID: Monitor for signs and symptoms of infection HEME: No acute hematologic issues ENDO: Euglycemic PROPH: Protonix 40 mg by mouth daily for stress ulcer prophylaxis. Lovenox 30 mg subcutaneous every 24 hours for DVT prophylaxis ACCESS: Right radial art line placed 01/07/17. will keep this today given ongoing hypertension. Discussed with Dr. Scruggs and bedside RN. Patient updated regarding plan of care. Jake Durand MD Jan 10, 2017 11:56
--- NOTE | 2017-01-10 12:18 | HHI.NPPN ---
Subjective History of Present Illness This patient is an 81-year-old male. The patient has a history of hypertension, coronary artery disease with previous PTCA. 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 Right renal artery lumen is said to be in the false lumen on CTA with impaired perfusion right kidney. Left kidney said to be reasonably well perfused. Subsequent ultrasound however indicating patent bilateral renal arteries. Admission creatinine level I.4. Unfortunately I have no renal indices available prior to this presently. Creatinine level has deteriorated to a level of 2.63 day of consultation. Patient's presenting blood pressure was 226/101. It has been treated aggressively to reduce his systolic pressure below 120. Despite aggressive IV hydration with normal saline patient's urine output has been somewhat poor. On questioning the patient he is unaware of any previous CKD. He was using Aleve day of admission. Interval History The patient was resting. RN reports anxiety yesterday evening with SOB. Received Bumex & symptoms resolved (Lelo Sorenesn) Review of Systems General Constitutional: Fatigue (Lelo Sorensen) Objective Data Data 01/09/17 01/10/17 19:00 07:00 Intake Total 2300 ml 2091 ml Output Total 350 ml 1350 ml Balance 1950 ml 741 ml Intake Oral 500 ml 960 ml IV Total 1800 ml 1131 ml Output Urine Total 350 ml 1350 ml # Bowel Movements 0 0 Vital Signs Date Time Temp Pulse Resp B/P Pulse Ox O2 Delivery O2 Flow Rate FiO2 01/10/17 11:00 78 01/10/17 11:00 98.1 77 18 121/44 92 124/60 01/10/17 08:04 94 Partial Rebreather 10.00 01/10/17 07:00 82 01/10/17 07:00 99.7 95 16 129/56 98 123/62 01/10/17 04:00 87 01/10/17 02:54 94 55 01/10/17 02:47 94 Partial Rebreather 13.00 01/10/17 00:00 87 01/10/17 00:00 98.6 91 20 163/78 97 163/67 01/09/17 20:28 93 Nasal Cannula 5.00 01/09/17 20:00 84 01/09/17 20:00 98.2 85 20 144/72 94 147/54 01/09/17 15:03 74 01/09/17 15:02 97.7 74 16 123/60 95 131/45 (Lelo Sorensen) -: 01/10/17 0510 01/10/17 0510 Medication Review Current Medications Medications (Trade) Dose Ordered Sig/Paula Route Start Time Stop Time Status Last Admin (NS Flush) 2 ml UNSCH PRN IVF 01/07/17 15:00 01/08/17 10:17 (Aspirin Chew) 81 mg DAILY PO 01/08/17 09:00 01/10/17 08:42 (Protonix) 40 mg DAILY PO 01/08/17 09:00 01/10/17 08:42 (Lipitor) 40 mg HS PO 01/07/17 21:00 01/09/17 20:51 (Roxicodone) 5 mg Q4H PRN PO 01/07/17 19:00 01/07/17 22:50 (Morphine Inj) 2 mg Q1H PRN IV 01/07/17 19:00 (Lovenox Inj) 30 mg Q24H SQ 01/07/17 20:00 01/09/17 20:51 (Zofran Inj) 4 mg Q6HR PRN IV PUSH 01/07/17 21:45 01/08/17 14:44 Acetylcysteine 1200 mg 1,200 mg BID PO 01/08/17 21:00 01/10/17 10:04 (Cleviprex Inj) 50 ml @ 0 mls/hr TITRATE IV 01/08/17 23:15 01/10/17 12:08 (Catapres) 0.3 mg Q8HR PO 01/09/17 14:00 01/10/17 06:16 (Apresoline) 100 mg Q8HR PO 01/09/17 09:00 01/10/17 06:16 (Apresoline Inj) 10 mg Q30M PRN IV PUSH 01/09/17 08:45 (Trandate Inj) 20 mg Q2H PRN IV PUSH 01/09/17 08:45 01/10/17 00:59 (Pill Splitter) 1 ea UNSCH PRN OTHER 01/09/17 15:15 (Procardia) 30 mg Q6HR PO 01/10/17 12:00 (Trandate) 300 mg Q6HR PO 01/10/17 12:00 (Lelo Sorensen) Physical Exam General Appearance: No Acute Distress, Comfortable (Lelo Sorensen) Eyes Eye Exam: Sclera White (Lelo Sorensen) Pulmonary Resp Exam: Clear Bilaterally, Breath Sounds Equal, No Distress (Lelo Sorensen) Cardiology CV Exam: Regular, Normal Sinus Rhythm, Good Perfusion (Lelo Sorensen) Gastrointestinal/Abdomen GI Exam: Soft, Non-Tender (Lelo Sorensen) Integumentary Skin Exam: Clear, Warm, Normal Turgor (Lelo Sorensen) Extremeties Extremities Exam: No Edema (Lelo Sorensen) Assessment/Plan Discussed Condition With: Patient Problem List: (1) Acute kidney insufficiency Plan: The patient's SCr has improved. Complements normal and no urine eosinophils. As mentioned previously, BRYCE could be related to contrast nephropathy versus autoregulation of BP. Bumex given this AM d/t SOB and IVF stopped. F/U renal panel in the AM Medications should be adjusted for the patient's estimated GFR if clinically indicated. Avoid agents with significant potential for nephrotoxicity possible including NSAIDs for analgesia, . Would also avoid MORENA inhibitor and angiotensin receptor blockers at this time.. Gadolinium is contraindicated if the GFR is below 30. (2) Abdominal aortic aneurysm dissection Plan: Management per vascular surgery. (3) Oliguria Plan: Resolved (4) HTN (hypertension) Plan: Defer management to vascular surgery for the present time. Noted patient is being started on the short acting calcium channel irasema Clevidipine. Also on hydralazine the beta irasema. (Lelo Sorensen) Plan Patient maintaining adequate urine output and his creatinine level has improved significantly since yesterday which is a good sign. Patient is somewhat dyspneic however and was placed on nonrebreather when I saw the patient. I will order an additional dose of bumetanide 1 mg IV 1. The exam, history, and the medical decision-making described in the above note were completed with the assistance of the [facility]AM[facility]. I reviewed and agree with the findings presented. I attest that I had a [id number] encounter with the patient on the same day, and personally performed and documented my assessment and findings in the medical record. (Dionisio Oden MD) Lelo Sorensen Jan 10, 2017 12:18 Dionisio Oden MD Jan 10, 2017 16:29
[2017-01-10] MEDS: NIFEdipine 10 MG CAP PO SCH ×2 (12:27→18:06)
[2017-01-10] MEDS: LABETALOL HCL 300 MG TAB PO SCH ×2 (12:27→18:05)
[2017-01-10] MEDS: ATORVASTATIN 40 MG TAB PO SCH (22:28)
[2017-01-10] MEDS: ENOXAPARIN SODIUM 30 MG/0.3 ML SYRINGE SQ SCH (22:31)
[2017-01-11] VITALS (13 sets, daily range): BP systolic 121–143; BP diastolic 58–71; PULSE 84–92; RESP 16–18; TEMP 97.9–98.8; O2SAT 88–95
[2017-01-11] MEDS: LABETALOL HCL 300 MG TAB PO SCH ×5 (00:44→23:42)
[2017-01-11] MEDS: NIFEdipine 10 MG CAP PO SCH ×5 (00:44→23:42)
[2017-01-11] MEDS: RESP: ALBUTEROL 2.5 MG/IPRATROPIUM 0.5 MG NEB (SCH) NEB ×6 (01:25→19:50)
[2017-01-11 06:07] LABS: BICARBONATE 21.7 MEQ/L (21.0-32.0); POTASSIUM 3.8 MEQ/L (3.5-5.1)
[2017-01-11] MEDS: cloNIDine HCL 0.3 MG TAB PO SCH ×3 (06:21→21:30)
[2017-01-11] MEDS ORDERED: CHLOROTHIAZIDE SOD 500 MG VIAL IV ONE (07:45)
[2017-01-11] MEDS ORDERED: BUMETANIDE INJ 1 MG/4 ML VIAL IV PUSH ONE ×2 (07:45→17:45)
--- NOTE | 2017-01-11 07:54 | HHI.CCPN ---
Subjective Remarks/Hospital Course 81 yo WM with past medical history of hypertension, hyperlipidemia, coronary artery disease with stents 2 placed 17 years ago who presented to [facility] after he developed the sudden onset of severe chest pain at 11:45 this morning. He states the pain feels like pressure in the epigastrium and left chest and radiates to the back. It was associated with diaphoresis. He states that he could not get comfortable and that nothing would relieve his severe pain so he was transported to the hospital by [facility]. Workup demonstrated troponin of 0.02. With EKG showing sinus bradycardia with first-degree AV block and no ST or T-wave abnormalities. 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 The mesenteric arteries or in the true lumen and the right renal artery is in the false lumen. His blood pressure upon presentation was 226/ 101. He was started on a nicardipine drip which is currently going at 15 mg per hour and blood pressure is 149/59. He is being started on a labetalol drip to target systolic blood pressure less than 110. He reports persistent pain in his epigastrium and left flank and complains of thirst. 12/29/16: BP improved control on Labetalol gtt. NPO now. Once cleared by vascular surgery, will start PO antihypertensives. Target less than 110. Creat worsened from 1.4 to 2.4. Nephrology consulted 01/09: still on clevidipine. Cr plateaued at 2.7. uop adequate. no complaints. 01/10: still on clevidipine despite increasing anti-htn regimen. overnight became hypoxic requiring BiPAP. given bumex with good response and improvement in oxygenation. 01/11: tolerating regular diet. off clevidipine. on oral meds with good bp control. still on high flow NC. renal function improves, but still oliguric and not net negative fluid balance despite attempts at forced diuresis. patient states he feels good this morning. Objective Vital Signs Date Time Temp Pulse Resp B/P Pulse Ox O2 Delivery O2 Flow Rate FiO2 01/11/17 07:24 92 High Flow Nasal Cannula 40.00 70 01/11/17 03:00 97.9 84 18 131/58 Intake and Output 01/10/17 01/10/17 01/11/17 08:00 16:00 00:00 Intake Total 2091 ml 1185 ml Output Total 1350 ml 850 ml Balance 741 ml 335 ml Result Diagram: 01/10/17 0510 01/11/17 0510 Objective Remarks GENERAL: elderly male, lying in bed. SKIN: Warm and dry, well perfused HEAD: Atraumatic. Normocephalic. EYES: Pupils equal and round. No scleral icterus. No injection or drainage. ENT: No nasal bleeding or discharge. Mucous membranes pink and moist. NECK: Trachea midline. slight jvd today. CARDIOVASCULAR: Regular rate and rhythm. No murmurs. RESPIRATORY: No accessory muscle use. some bibasilar crackles this morning. GASTROINTESTINAL: Abdomen soft, protuberant but nondistended. No tenderness to palpation. MUSCULOSKELETAL/VASC: Extremities without clubbing, cyanosis. new 1+ edema of LEs today. DPs and posterior tibial artery pulses are palpable bilaterally. Feet are warm and well perfused. NEUROLOGICAL: Awake and alert, RASS 0. A/P Assessment and Plan Assessment: 81yM with acute type B dissection complicated by hypertensive emergency and acute kidney injury. his BRYCE is downtrending. Clinically, today he appears more volume overloaded than yesterday, and despite attempts at forced diuresis, he has not achieved a net negative fluid balance. we will increase his diuretic regimen today with a goal of at least net negative 1-2L/ 24h. His oxygen requirement appears to be related to his volume overload. He requires ICU admission today for his pulmonary status as we pursue forced diuresis. If this improves, he could be able to go to the floor as early as this afternoon or tomorrow. NEURO: Pain secondary to aortic dissection Oxycodone 5 mg by mouth every 4 hours when necessary pain. Morphine 2 mg IV every hours when necessary breakthrough pain. RESP: high flow nasal cannula. diuresis as below. IS every hour awake. wean o2 as tolerated. OOB to chair. PT consult. 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 Oral anti-htn regimen: labetalol 300mg po q6h nifedipine 30mg q6h. labetalol/hydralazine iv. clevidipine infusion to achieve goal. Aspirin 81 mg daily Lipitor 40 mg daily at bedtime GI: tolerating heart healthy diet. add bowel regimen today. FEN/RENAL: Acute kidney injury- resolving. -with unknown baseline creatinine. -continue morales catheter. -bumex 2mg iv x 1 with diuril 500mg iv x 1. will likely need to redose bumex this afternoon. goal net negative 1-2L/24h. -Cr downtrends, but filtration has not improved significantly given persistent oliguria. - icu electrolyte protocol. - nephrology following. ID: Monitor for signs and symptoms of infection HEME: No acute hematologic issues ENDO: Euglycemic PROPH: Protonix 40 mg by mouth daily for stress ulcer prophylaxis. Lovenox 30 mg subcutaneous every 24 hours for DVT prophylaxis ACCESS: -piv. Dispo: remain in ICU while on high-flow NC. Jake Durand MD Jan 11, 2017 07:54
[2017-01-11] MEDS: ASPIRIN 81 MG CHEW TAB PO SCH (09:00)
[2017-01-11] MEDS: POLYETHYLENE GLYCOL 17 GM PKG PO SCH ×2 (09:33→21:29)
[2017-01-11] MEDS: PANTOPRAZOLE SOD 40 MG DELAYED RELEASE TAB PO SCH (09:34)
[2017-01-11] MEDS: LACTULOSE SYRUP 20 GM/30 ML CUP PO SCH ×2 (09:34→21:29)
[2017-01-11] MEDS: DOCUSATE SODIUM 50 MG/SENNA 8.6 MG TAB PO SCH ×2 (09:34→21:29)
[2017-01-11] MEDS: BISACODYL 10 MG SUPP RECTAL SCH (09:35)
[2017-01-11] MEDS: ACETYLCYSTEINE 20% 6,000 MG/30 ML ORAL SOLN VIAL PO SCH ×2 (09:40→21:31)
[2017-01-11] MEDS: LABETALOL HCL 100 MG/20 ML VIAL IV PUSH PRN (09:52)
--- NOTE | 2017-01-11 10:13 | PD.VS.PN ---
Subjective Subjective/Hospital Course Pt adm with aTBAD - no pain. Transitioned to HF NC; sats marginal but no SOB Sophia diet Objective Vitals/I&O Date Time Temp Pulse Resp B/P Pulse Ox O2 Delivery O2 Flow Rate FiO2 01/11/17 09:38 93 High Flow Nasal Cannula 40.00 60 01/11/17 07:24 92 High Flow Nasal Cannula 40.00 70 01/11/17 07:00 98.8 90 17 142/66 90 01/11/17 07:00 90 01/11/17 04:17 94 55 01/11/17 03:00 97.9 84 18 131/58 94 01/11/17 03:00 84 01/11/17 01:19 94 55 01/10/17 23:00 98.3 89 18 128/49 95 Arterial Line 01/10/17 23:00 89 01/10/17 22:58 94 55 01/10/17 22:25 95 High Flow Nasal Cannula 40.00 70 01/10/17 19:00 98.6 83 23 106/62 86 115/53 01/10/17 19:00 83 01/10/17 15:00 98.4 78 18 122/56 90 115/57 01/10/17 15:00 78 01/10/17 11:00 78 01/10/17 11:00 98.1 77 18 121/44 92 124/60 01/11/17 01/11/17 01/11/17 07:00 15:00 23:00 Intake Total 440 ml Output Total 650 ml Balance -210 ml Physical Exam No abdominal pain, Neuro intact; no neuro deficits Laboratory Laboratory Tests Test 01/11/17 05:10 Sodium Level 135 Potassium Level 3.8 Chloride Level 103 Carbon Dioxide Level 21.7 Anion Gap 10 Blood Urea Nitrogen 36 Creatinine 1.83 Estimat Glomerular Filtration 36 Rate Random Glucose 111 Calcium Level 7.9 Phosphorus Level 3.0 Albumin 2.5 Assessment and Plan Plan acute TBAD without complicating features at present. creatinine improving 1. BP control with goal SBP 130 - beta blockade 2. Cardiac diet 3. ATN - improving. likely pre-renal with add'l insult of necessary contrast. Fluid mobilizing and am ok with gentle diuresis 3. Watch for recurrent pain 4. Repeat CT at some point pending symptoms and creatinine 5. OOB TC 6. CXR this morning Antwon Scurggs MD FACS regional ehs manager [facility] - Heart and Vascular Surgery at [facility] [phone] Antwon Scruggs MD Jan 11, 2017 10:13
--- NOTE | 2017-01-11 10:38 | RADRPT ---
EXAM DATE/TIME: 01/11/2017 10:13 [facility] COMPARISON: CTA THORACIC ABDOMINAL AORTA W 3D RECON, January 07, 2017, 15:41. CHEST SINGLE AP, January 09, 2017, 22:29. INDICATIONS : Descending aortic dissection. MEDICAL HISTORY : Hypertension. SURGICAL HISTORY : Coronary artery stent. ENCOUNTER: Subsequent ACUITY: 4 - 6 days PAIN SCORE: 0/10 LOCATION: Bilateral chest FINDINGS: There are increasing consolidative changes in the right base. Left lung remains clear. Heart is min imally enlarged. Pulmonary vascularity is normal. CONCLUSION: Increasing consolidative changes right base. Andrew Lopez MD FACR on January 11, 2017 at 10:32 Board Certified Radiologist. This report was verified electronically.
--- NOTE | 2017-01-11 15:10 | HHI.NPPN ---
Subjective History of Present Illness This patient is an 81-year-old male. The patient has a history of hypertension, coronary artery disease with previous PTCA. 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 Right renal artery lumen is said to be in the false lumen on CTA with impaired perfusion right kidney. Left kidney said to be reasonably well perfused. Subsequent ultrasound however indicating patent bilateral renal arteries. Admission creatinine level I.4. Unfortunately I have no renal indices available prior to this presently. Creatinine level has deteriorated to a level of 2.63 day of consultation. Patient's presenting blood pressure was 226/101. It has been treated aggressively to reduce his systolic pressure below 120. Despite aggressive IV hydration with normal saline patient's urine output has been somewhat poor. On questioning the patient he is unaware of any previous CKD. He was using Aleve day of admission. Interval History Patient indicating shortness of breath has improved since yesterday. by bedside. Review of Systems General Constitutional: Fatigue Objective Data Data 01/10/17 01/11/17 19:00 07:00 Intake Total 1185 ml 440 ml Output Total 850 ml 650 ml Balance 335 ml -210 ml Intake Oral 1140 ml 440 ml IV Total 45 ml Output Urine Total 850 ml 650 ml # Bowel Movements 0 0 Vital Signs Date Time Temp Pulse Resp B/P Pulse Ox O2 Delivery O2 Flow Rate FiO2 01/11/17 13:27 88 High Flow Nasal Cannula 40.00 50 01/11/17 11:27 98.2 88 16 143/71 90 01/11/17 11:27 88 01/11/17 09:38 93 High Flow Nasal Cannula 40.00 60 01/11/17 07:24 92 High Flow Nasal Cannula 40.00 70 01/11/17 07:00 98.8 90 17 142/66 90 01/11/17 07:00 90 01/11/17 04:17 94 55 01/11/17 03:00 97.9 84 18 131/58 94 01/11/17 03:00 84 01/11/17 01:19 94 55 01/10/17 23:00 98.3 89 18 128/49 95 Arterial Line 01/10/17 23:00 89 01/10/17 22:58 94 55 01/10/17 22:25 95 High Flow Nasal Cannula 40.00 70 01/10/17 19:00 98.6 83 23 106/62 86 115/53 01/10/17 19:00 83 -: 01/10/17 0510 01/11/17 0510 Physical Exam General Appearance: No Acute Distress, Comfortable Eyes Eye Exam: Sclera White Pulmonary Resp Exam: Clear Bilaterally, Breath Sounds Equal, No Distress Cardiology CV Exam: Regular, Normal Sinus Rhythm, Good Perfusion Gastrointestinal/Abdomen GI Exam: Soft, Non-Tender Integumentary Skin Exam: Clear, Warm, Normal Turgor Extremeties Extremities Exam: Moderate Edema (involving lower extremities with trace pitting edema of the forearms.) Assessment/Plan Discussed Condition With: Patient, Spouse Problem List: (1) Acute kidney insufficiency Plan: Patient's creatinine level is improving however agree has significant fluid retention. Noted Diuril and bumetanide were given this morning. May require a second dose later this p.m. of bumetanide. Medications should be adjusted for the patient's estimated GFR if clinically indicated. Avoid agents with significant potential for nephrotoxicity possible including NSAIDs for analgesia, . Would also avoid MORENA inhibitor and angiotensin receptor blockers at this time.. Gadolinium is contraindicated if the GFR is below 30. (2) Abdominal aortic aneurysm dissection Plan: Management per vascular surgery. (3) Oliguria Plan: Resolved (4) HTN (hypertension) Plan: Defer management to vascular surgery for the present time. Noted patient is being started on the short acting calcium channel irasema Clevidipine. Also on hydralazine the beta irasema. Dionisio Oden MD Jan 11, 2017 15:10
[2017-01-11 20:43] LABS: BICARBONATE 25.2 MEQ/L (21.0-32.0); MAGNESIUM 2.1 MG/DL (1.5-2.5); POTASSIUM 3.5 MEQ/L (3.5-5.1)
[2017-01-11] MEDS: ENOXAPARIN SODIUM 30 MG/0.3 ML SYRINGE SQ SCH (21:29)
[2017-01-11] MEDS: ATORVASTATIN 40 MG TAB PO SCH (21:30)
[2017-01-12] VITALS (12 sets, daily range): BP systolic 120–142; BP diastolic 60–74; PULSE 82–91; RESP 18–22; TEMP 97.4–98.8; O2SAT 87–96
[2017-01-12] MEDS ORDERED: POTASSIUM CHLORIDE 20 MEQ PWD PACKET PO SCH (02:00)
[2017-01-12] MEDS: RESP: ALBUTEROL 2.5 MG/IPRATROPIUM 0.5 MG NEB (SCH) NEB ×6 (04:06→19:51)
[2017-01-12] MEDS: NIFEdipine 10 MG CAP PO SCH ×3 (05:38→18:07)
[2017-01-12] MEDS: cloNIDine HCL 0.3 MG TAB PO SCH ×3 (05:38→20:59)
[2017-01-12] MEDS: LABETALOL HCL 300 MG TAB PO SCH ×4 (05:38→23:41)
--- NOTE | 2017-01-12 08:49 | RADRPT ---
EXAM DATE/TIME: 01/12/2017 08:04 [facility] COMPARISON: CHEST SINGLE AP, January 11, 2017, 10:13. INDICATIONS : Shortness of breath. MEDICAL HISTORY : Hypertension. Arthritis. SURGICAL HISTORY : Coronary artery stent. ENCOUNTER: Subsequent ACUITY: 4 - 6 days PAIN SCORE: 0/10 LOCATION: Bilateral chest FINDINGS: The heart is at the upper limits of normal in size. There is diffuse infiltrate in the lung bases. Th ere bibasilar fusions. Study would suggest possible congestive failure. Visualized bony structures are intact. CONCLUSION: 1. Bibasilar fusions in diffuse parenchymal opacification suggesting congestive failure. This appears mildly worsened when compared to previous dated 01/11/17. Mitch Lopez MD on January 12, 2017 at 8:46 Board Certified Radiologist. This report was verified electronically.
[2017-01-12] MEDS: PANTOPRAZOLE SOD 40 MG DELAYED RELEASE TAB PO SCH (08:57)
[2017-01-12] MEDS: POLYETHYLENE GLYCOL 17 GM PKG PO SCH ×2 (08:57→20:59)
[2017-01-12] MEDS: LACTULOSE SYRUP 20 GM/30 ML CUP PO SCH ×2 (08:57→20:58)
[2017-01-12] MEDS: ASPIRIN 81 MG CHEW TAB PO SCH (08:57)
[2017-01-12] MEDS: BISACODYL 10 MG SUPP RECTAL SCH (08:57)
[2017-01-12] MEDS: BUMETANIDE INJ 1 MG/4 ML VIAL IV PUSH SCH ×2 (08:58→17:53)
[2017-01-12] MEDS ORDERED: CHLOROTHIAZIDE SOD 500 MG VIAL IV ONE (09:00)
[2017-01-12] MEDS: ACETYLCYSTEINE 20% 6,000 MG/30 ML ORAL SOLN VIAL PO SCH ×2 (09:17→20:58)
[2017-01-12 09:21] LABS: BLOOD GAS BASE EXCESS -2.3 mmol/L (-2-2); BLOOD GAS CARBOXYHEMOGLOBIN 1.6 % (0-4); BLOOD GAS HCO3 21 mmol/L (22-26); BLOOD GAS METHEMOGLOBIN 1.2 % (0-2); BLOOD GAS O2 HGB SATURATION 90 % (90-100); BLOOD GAS OXYGEN CONTENT 15.7 Vol % (12.0-20.0); BLOOD GAS PCO2 32 mmHg (38-42); BLOOD GAS PO2 66 mmHg (61-120); BLOOD GAS TOTAL HGB 12.4 G/DL (12.0-16.0); TEMP CORR TO 98.6
[2017-01-12 09:22] LABS: CRITICAL VALUE NO; DRAW SITE RT RADIAL; FIO2 80 %; LITER FLOW 30 L/M; NUMBER OF ARTERIAL PUNCTURES 1; OXYGEN DEVICE NASAL CANNULA; STAT NO; ULNAR PULSE PRESENT
[2017-01-12 09:49] LABS: BICARBONATE 22.8 MEQ/L (21.0-32.0); POTASSIUM 3.7 MEQ/L (3.5-5.1)
--- NOTE | 2017-01-12 10:53 | PD.VS.PN ---
Subjective Subjective/Hospital Course Pt adm with aTBAD - no pain. Transitioned to HF NC; sats remain ok with HF ; no SOB Sophia diet Objective Vitals/I&O Date Time Temp Pulse Resp B/P Pulse Ox O2 Delivery O2 Flow Rate FiO2 01/12/17 07:43 87 High Flow Nasal Cannula 40.00 01/12/17 07:26 84 01/12/17 07:25 97.4 84 21 128/64 95 01/12/17 03:00 92 High Flow Nasal Cannula 40.00 65 01/12/17 03:00 98.3 88 18 120/60 90 01/12/17 03:00 88 01/12/17 01:06 96 55 01/11/17 23:00 98.6 89 18 121/62 95 01/11/17 23:00 89 01/11/17 22:35 94 55 01/11/17 19:50 91 High Flow Nasal Cannula 40.00 65 01/11/17 19:00 98.6 86 18 134/65 89 01/11/17 19:00 86 01/11/17 15:06 98.2 92 16 135/62 90 01/11/17 15:06 92 01/11/17 13:27 88 High Flow Nasal Cannula 40.00 50 01/11/17 11:27 98.2 88 16 143/71 90 01/11/17 11:27 88 Physical Exam no abdominal tenderness No neuro deficits Laboratory Laboratory Tests Test 01/11/17 01/12/17 01/12/17 19:56 07:50 09:10 Sodium Level 134 136 Potassium Level 3.5 3.7 Chloride Level 98 100 Carbon Dioxide Level 25.2 22.8 Anion Gap 11 13 Blood Urea Nitrogen 41 42 Creatinine 1.84 1.83 Estimat Glomerular Filtration 35 36 Rate Random Glucose 120 117 Calcium Level 8.4 8.6 Magnesium Level 2.1 Blood Gas Puncture Site RT RADIAL Blood Gas Patient Temperature 98.6 Blood Gas HCO3 21 Blood Gas Base Excess -2.3 Blood Gas Oxygen Saturation 90 Arterial Blood pH 7.44 Arterial Blood Partial 32 Pressure CO2 Arterial Blood Partial 66 Pressure O2 Arterial Blood Oxygen Content 15.7 Arterial Blood 1.6 Carboxyhemoglobin Arterial Blood Methemoglobin 1.2 Blood Gas Hemoglobin 12.4 Oxygen Delivery Device NASAL CANNULA Blood Gas Liter Flow 30 Blood Gas Inspired Oxygen 80 Imaging Last 48 hours Impressions Chest X-Ray 01/12/17 0000 Signed Impressions: Service Date/Time: Thursday, January 12, 2017 08:04 - CONCLUSION: 1. Bibasilar fusions in diffuse parenchymal opacification suggesting congestive failure. This appears mildly worsened when compared to previous dated 01/11/17. Mitch Lopez MD Chest X-Ray 01/11/17 0000 Signed Impressions: Service Date/Time: Wednesday, January 11, 2017 10:13 - CONCLUSION: Increasing consolidative changes right base. 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 creatinine 1.8, stable, but I suspect he could tolerate more diuresis 1. BP control with goal SBP 130 - beta blockade 2. Cardiac diet 3. ATN - improving. likely pre-renal with add'l insult of necessary contrast. 3. Watch for recurrent pain 4. Repeat CT at some point pending symptoms and creatinine 5. OOB TC and ambulate ad jonna Antwon Scruggs MD FACS marble and granite polisher [facility] - Heart and Vascular Surgery at [facility] [phone] Antwon Scruggs MD Jan 12, 2017 10:53
--- NOTE | 2017-01-12 10:56 | HHI.CCPN ---
Subjective Remarks/Hospital Course 81 yo WM with past medical history of hypertension, hyperlipidemia, coronary artery disease with stents 2 placed 17 years ago who presented to [facility] after he developed the sudden onset of severe chest pain at 11:45 this morning. He states the pain feels like pressure in the epigastrium and left chest and radiates to the back. It was associated with diaphoresis. He states that he could not get comfortable and that nothing would relieve his severe pain so he was transported to the hospital by [facility]. Workup demonstrated troponin of 0.02. With EKG showing sinus bradycardia with first-degree AV block and no ST or T-wave abnormalities. 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 The mesenteric arteries or in the true lumen and the right renal artery is in the false lumen. His blood pressure upon presentation was 226/ 101. He was started on a nicardipine drip which is currently going at 15 mg per hour and blood pressure is 149/59. He is being started on a labetalol drip to target systolic blood pressure less than 110. He reports persistent pain in his epigastrium and left flank and complains of thirst. 12/29/16: BP improved control on Labetalol gtt. NPO now. Once cleared by vascular surgery, will start PO antihypertensives. Target less than 110. Creat worsened from 1.4 to 2.4. Nephrology consulted 01/09: still on clevidipine. Cr plateaued at 2.7. uop adequate. no complaints. 01/10: still on clevidipine despite increasing anti-htn regimen. overnight became hypoxic requiring BiPAP. given bumex with good response and improvement in oxygenation. 01/11: tolerating regular diet. off clevidipine. on oral meds with good bp control. still on high flow NC. renal function improves, but still oliguric and not net negative fluid balance despite attempts at forced diuresis. patient states he feels good this morning. 01/12: doing well this morning. o2 requirement still very high, on high-flow 40LPM with 80% fio2. however, not dyspneic. not complaining of SOB. tolerated breakfast. good diuresis yesterday. Objective Vital Signs Date Time Temp Pulse Resp B/P Pulse Ox O2 Delivery O2 Flow Rate FiO2 01/12/17 07:43 87 High Flow Nasal Cannula 40.00 01/12/17 07:26 84 01/12/17 07:25 97.4 21 128/64 01/12/17 03:00 65 Intake and Output 01/11/17 01/11/17 01/12/17 08:00 16:00 00:00 Intake Total 440 ml 970 ml Output Total 650 ml 2450 ml Balance -210 ml -1480 ml Result Diagram: 01/10/17 0510 01/12/17 0750 Other Results Laboratory Tests Test 01/12/17 09:10 Blood Gas Puncture Site RT RADIAL Blood Gas Patient Temperature 98.6 Blood Gas HCO3 21 mmol/L (22-26) Blood Gas Base Excess -2.3 mmol/L (-2-2) Blood Gas Oxygen Saturation 90 % (90-100) Arterial Blood pH 7.44 (7.380-7.420) Arterial Blood Partial 32 mmHg (38-42) Pressure CO2 Arterial Blood Partial 66 mmHg Pressure O2 (61-120) Arterial Blood Oxygen Content 15.7 Vol % (12.0-20.0) Arterial Blood 1.6 % (0-4) Carboxyhemoglobin Arterial Blood Methemoglobin 1.2 % (0-2) Blood Gas Hemoglobin 12.4 G/DL (12.0-16.0) Oxygen Delivery Device NASAL CANNULA Blood Gas Liter Flow 30 L/M Blood Gas Inspired Oxygen 80 % Objective Remarks GENERAL: elderly male, lying in bed. SKIN: Warm and dry, well perfused HEAD: Atraumatic. Normocephalic. EYES: Pupils equal and round. No scleral icterus. No injection or drainage. ENT: No nasal bleeding or discharge. Mucous membranes pink and moist. NECK: Trachea midline. slight jvd again today. CARDIOVASCULAR: Regular rate and rhythm. No murmurs. RESPIRATORY: No accessory muscle use. some bibasilar crackles this morning. GASTROINTESTINAL: Abdomen soft, protuberant but nondistended. No tenderness to palpation. MUSCULOSKELETAL/VASC: Extremities without clubbing, cyanosis. new 1+ edema of LEs today. DPs and posterior tibial artery pulses are palpable bilaterally. Feet are warm and well perfused. NEUROLOGICAL: Awake and alert, RASS 0. A/P Assessment and Plan Assessment: 81yM with acute type B dissection complicated by hypertensive emergency and acute kidney injury. his BRYCE is downtrending. Still volume overloaded. will continue forced diuresis today. OOB and ambulating with assist and PT. wean fio2 as tolerated. cannot go to floor with this high o2 requirement. NEURO: Pain secondary to aortic dissection Oxycodone 5 mg by mouth every 4 hours when necessary pain. Morphine 2 mg IV every hours when necessary breakthrough pain. RESP: high flow nasal cannula. diuresis as below. IS every hour awake. wean o2 as tolerated. OOB to chair. PT consult. 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 Oral anti-htn regimen: labetalol 300mg po q6h nifedipine 30mg q6h. labetalol/hydralazine iv. Aspirin 81 mg daily Lipitor 40 mg daily at bedtime GI: tolerating heart healthy diet. goal BM today. add 1 time mag citrate and suppository. FEN/RENAL: Acute kidney injury- resolving. -with unknown baseline creatinine. -continue morales catheter. -bumex 2mg iv BID with diuril 500mg iv x 1. diamox 500mg iv x 1 for slight metabolic alkalosis. goal net -2L/24h. - icu electrolyte protocol. - nephrology following. ID: Monitor for signs and symptoms of infection HEME: No acute hematologic issues ENDO: Euglycemic PROPH: Protonix 40 mg by mouth daily for stress ulcer prophylaxis. Lovenox 30 mg subcutaneous every 24 hours for DVT prophylaxis ACCESS: -piv. Dispo: remain in ICU while on high-flow NC. Jake Durand MD Jan 12, 2017 10:56
[2017-01-12] MEDS: MAGNESIUM CITRATE SOLN 300 ML BTL PO ONE (11:00)
[2017-01-12] MEDS ORDERED: BISACODYL 10 MG SUPP RECTAL SCH (11:00)
--- NOTE | 2017-01-12 12:18 | HHI.NPPN ---
Subjective History of Present Illness This patient is an 81-year-old male. The patient has a history of hypertension, coronary artery disease with previous PTCA. 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 Right renal artery lumen is said to be in the false lumen on CTA with impaired perfusion right kidney. Left kidney said to be reasonably well perfused. Subsequent ultrasound however indicating patent bilateral renal arteries. Admission creatinine level I.4. Unfortunately I have no renal indices available prior to this presently. Creatinine level has deteriorated to a level of 2.63 day of consultation. Patient's presenting blood pressure was 226/101. It has been treated aggressively to reduce his systolic pressure below 120. Despite aggressive IV hydration with normal saline patient's urine output has been somewhat poor. On questioning the patient he is unaware of any previous CKD. He was using Aleve day of admission. Interval History No new complaints. On high flow O2 (Lelo Sorensen) Review of Systems General Constitutional: Fatigue (Lelo Sorensen) Objective Data Data 01/11/17 01/12/17 19:00 07:00 Intake Total 970 ml 430 ml Output Total 2450 ml 1400 ml Balance -1480 ml -970 ml Intake Oral 850 ml 430 ml IV Total 120 ml Output Urine Total 2450 ml 1400 ml # Bowel Movements 0 0 Vital Signs Date Time Temp Pulse Resp B/P Pulse Ox O2 Delivery O2 Flow Rate FiO2 01/12/17 11:03 90 01/12/17 11:02 98.0 90 22 122/63 91 01/12/17 07:43 87 High Flow Nasal Cannula 40.00 01/12/17 07:26 84 01/12/17 07:25 97.4 84 21 128/64 95 01/12/17 03:00 92 High Flow Nasal Cannula 40.00 65 01/12/17 03:00 98.3 88 18 120/60 90 01/12/17 03:00 88 01/12/17 01:06 96 55 01/11/17 23:00 98.6 89 18 121/62 95 01/11/17 23:00 89 01/11/17 22:35 94 55 01/11/17 19:50 91 High Flow Nasal Cannula 40.00 65 01/11/17 19:00 98.6 86 18 134/65 89 01/11/17 19:00 86 01/11/17 15:06 98.2 92 16 135/62 90 01/11/17 15:06 92 01/11/17 13:27 88 High Flow Nasal Cannula 40.00 50 (Lelo Sorensen) -: 01/10/17 0510 01/12/17 0750 Medication Review Current Medications Medications (Trade) Dose Ordered Sig/Paula Route Start Time Stop Time Status Last Admin (NS Flush) 2 ml UNSCH PRN IVF 01/07/17 15:00 01/08/17 10:17 (Aspirin Chew) 81 mg DAILY PO 01/08/17 09:00 01/12/17 08:57 (Protonix) 40 mg DAILY PO 01/08/17 09:00 01/12/17 08:57 (Lipitor) 40 mg HS PO 01/07/17 21:00 01/11/17 21:30 (Roxicodone) 5 mg Q4H PRN PO 01/07/17 19:00 01/07/17 22:50 (Morphine Inj) 2 mg Q1H PRN IV 01/07/17 19:00 (Lovenox Inj) 30 mg Q24H SQ 01/07/17 20:00 01/11/17 21:29 (Zofran Inj) 4 mg Q6HR PRN IV PUSH 01/07/17 21:45 01/08/17 14:44 (Mucomyst 20% Liq) 1,200 mg BID PO 01/08/17 21:00 01/12/17 09:17 (Catapres) 0.3 mg Q8HR PO 01/09/17 14:00 01/12/17 05:38 (Apresoline Inj) 10 mg Q30M PRN IV PUSH 01/09/17 08:45 (Trandate Inj) 20 mg Q2H PRN IV PUSH 01/09/17 08:45 01/11/17 09:52 (Pill Splitter) 1 ea UNSCH PRN OTHER 01/09/17 15:15 (Procardia) 30 mg Q6HR PO 01/10/17 12:00 01/12/17 05:38 (Trandate) 300 mg Q6HR PO 01/10/17 12:00 01/12/17 11:54 (Dulcolax Supp) 10 mg DAILY RECTAL 01/11/17 09:00 01/12/17 08:57 (Miralax) 17 gm BID PO 01/11/17 09:00 01/12/17 08:57 (Lactulose Liq) 30 ml BID PO 01/11/17 09:00 01/12/17 08:57 (Margie-Colace) 1 tab BID PO 01/11/17 09:00 01/11/17 21:29 (Bumex Inj) 2 mg BID@,18 IV PUSH 01/12/17 09:00 01/12/17 08:58 (Lelo Sorensen) Physical Exam General Appearance: No Acute Distress, Comfortable (Lelo Sorensen) Eyes Eye Exam: Sclera White (Lelo Sorensen) Pulmonary Resp Exam: Clear Bilaterally, Breath Sounds Equal, No Distress (Lelo Sorensen) Cardiology CV Exam: Regular, Normal Sinus Rhythm, Good Perfusion (Lelo Sorensen) Gastrointestinal/Abdomen GI Exam: Soft, Non-Tender (Lelo Sorensen) Integumentary Skin Exam: Clear, Warm, Normal Turgor (Lelo Sorensen) Extremeties Extremities Exam: Trace Edema (Lelo Sorensen) Neurologic Neuro Exam: Alert, Awake (Lelo Sorensen) Psychiatric Psych Exam: Appropriate Responses (Lelo Sorensen) Assessment/Plan Discussed Condition With: Patient, Spouse Problem List: (1) Acute kidney insufficiency Plan: SCr stable. Continue on IV Bumex as ordered by CC. Repeat renal panel in the AM Medications should be adjusted for the patient's estimated GFR if clinically indicated. Avoid agents with significant potential for nephrotoxicity possible including NSAIDs for analgesia, . Would also avoid MORENA inhibitor and angiotensin receptor blockers at this time.. Gadolinium is contraindicated if the GFR is below 30. (2) Abdominal aortic aneurysm dissection Plan: Management per vascular surgery. (3) Oliguria Plan: Resolved (4) HTN (hypertension) Plan: Defer management to vascular surgery for the present time. Noted patient is being started on the short acting calcium channel irasema Clevidipine. Also on hydralazine the beta irasema. (Lelo Sorensen) Plan The exam, history, and the medical decision-making described in the above note were completed with the assistance of the BRYANT. I reviewed and agree with the findings presented. I attest that I had a [id number] encounter with the patient on the same day, and personally performed and documented my assessment and findings in the medical record. (Dionisio Oden MD) Lelo Sorensen Jan 12, 2017 12:18 Dionisio Oden MD Jan 13, 2017 10:45
[2017-01-12] MEDS: DOCUSATE SODIUM 50 MG/SENNA 8.6 MG TAB PO SCH ×2 (12:41→20:59)
[2017-01-12] MEDS: ATORVASTATIN 40 MG TAB PO SCH (20:58)
[2017-01-12] MEDS: ENOXAPARIN SODIUM 30 MG/0.3 ML SYRINGE SQ SCH (20:58)
[2017-01-12] MEDS ORDERED: MAGNESIUM CITRATE SOLN 300 ML BTL PO ONE (23:55)
[2017-01-13] VITALS (12 sets, daily range): BP systolic 124–145; BP diastolic 64–76; PULSE 80–96; RESP 18–22; TEMP 98.3–99.6; O2SAT 92–96
[2017-01-13] MEDS: RESP: ALBUTEROL 2.5 MG/IPRATROPIUM 0.5 MG NEB (SCH) NEB ×6 (00:52→21:45)
[2017-01-13] MEDS: NIFEdipine 10 MG CAP PO SCH ×4 (01:40→17:46)
[2017-01-13] MEDS: ONDANSETRON HCL 4 MG/2 ML VIAL IV PUSH PRN (01:40)
[2017-01-13] MEDS ORDERED: METOCLOPRAMIDE HCL 10 MG/2 ML VIAL IV PUSH ONE (03:30)
[2017-01-13] MEDS: LABETALOL HCL 100 MG/20 ML VIAL IV PUSH PRN ×2 (05:00→08:00)
[2017-01-13] MEDS ORDERED: SODIUM CHLOR 0.9% 1000 ML INJ 1,000 ML IV SCH (05:00)
[2017-01-13 05:34] LABS: HEMATOCRIT 34.5 % (39.0-51.0); MEAN CELL VOLUME 87.8 FL (80.0-100.0); MEAN CORPUSCULAR HEMOGLOBIN 30.4 PG (27.0-34.0); MEAN CORPUSCULAR HGB CONC 34.6 % (32.0-36.0); PLATELET COUNT 137 TH/MM3 (150-450); RED BLOOD COUNT 3.93 MIL/MM3 (4.50-5.90); RED CELL DISTRIBUTION WIDTH 13.4 % (11.6-17.2); REVIEW FLAG FINAL; WHITE BLOOD COUNT 12.7 TH/MM3 (4.0-11.0)
[2017-01-13] MEDS: LABETALOL HCL 300 MG TAB PO SCH ×3 (05:36→17:46)
[2017-01-13] MEDS: cloNIDine HCL 0.3 MG TAB PO SCH ×3 (05:36→20:53)
[2017-01-13 06:08] LABS: BICARBONATE 24.3 MEQ/L (21.0-32.0); POTASSIUM 3.3 MEQ/L (3.5-5.1)
--- NOTE | 2017-01-13 06:15 | RADRPT ---
EXAM DATE/TIME: 01/13/2017 05:05 [facility] COMPARISON: ABDOMEN KUB ONLY, January 08, 2017, 10:06. INDICATIONS : Vomiting. MEDICAL HISTORY : Hypertension. Hyperlipidemia. Coronary artery disease. Descending aortic dissection. SURGICAL HISTORY : Coronary artery stent. ENCOUNTER: Initial ACUITY: 1 day PAIN SCORE: Non-responsive. LOCATION: abdomen, all quadrants. FINDINGS: 2 portable supine views of the abdomen show dilated gas filled loops of colon. Gas is seen to the lev el of the rectal vault. No dilated loops of small bowel observed. No gross pneumoperitoneum. No organ omegaly. Scoliotic curvature. CONCLUSION: Gas distended colon. Isaac Steiner Jr., MD on January 13, 2017 at 6:12 Board Certified Radiologist. This report was verified electronically.
[2017-01-13] MEDS: POLYETHYLENE GLYCOL 17 GM PKG PO SCH ×2 (08:33→20:52)
[2017-01-13] MEDS: BISACODYL 10 MG SUPP RECTAL SCH (08:33)
[2017-01-13] MEDS: LACTULOSE SYRUP 20 GM/30 ML CUP PO SCH ×2 (08:33→20:52)
[2017-01-13] MEDS: PANTOPRAZOLE SOD 40 MG DELAYED RELEASE TAB PO SCH (08:33)
[2017-01-13] MEDS: ASPIRIN 81 MG CHEW TAB PO SCH (08:33)
[2017-01-13] MEDS: DOCUSATE SODIUM 50 MG/SENNA 8.6 MG TAB PO SCH ×2 (08:33→20:53)
--- NOTE | 2017-01-13 08:34 | PD.VS.PN ---
Subjective Subjective/Hospital Course Pt adm with aTBAD - no pain. Distended abdomen overnight with emesis - no nausea, no pain Attempted to place NGT but unable overnight. In no distress today Objective Vitals/I&O Date Time Temp Pulse Resp B/P Pulse Ox O2 Delivery O2 Flow Rate FiO2 01/13/17 07:22 98.3 92 22 140/69 96 01/13/17 07:22 96 Nasal Cannula 100 01/13/17 07:21 92 01/13/17 07:16 94 High Flow Nasal Cannula 35.00 100 01/13/17 04:00 99.6 96 22 145/76 96 01/13/17 04:00 96 Nasal Cannula 100 01/13/17 04:00 92 01/13/17 00:00 92 22 129/72 92 01/13/17 00:00 92 01/13/17 00:00 90 Nasal Cannula 100 01/12/17 20:00 98.8 91 20 134/74 90 01/12/17 20:00 94 High Flow Nasal Cannula 35.00 100 01/12/17 20:00 90 01/12/17 19:51 92 High Flow Nasal Cannula 30.00 80 01/12/17 19:00 88 Nasal Cannula 80 01/12/17 17:25 Nasal Cannula 80 01/12/17 15:06 98.0 82 22 142/64 88 01/12/17 15:05 82 01/12/17 11:03 90 01/12/17 11:02 98.0 90 22 122/63 91 01/13/17 01/13/17 01/13/17 07:00 15:00 23:00 Intake Total 540 ml Output Total 2750 ml Balance -2210 ml Physical Exam No chest pain Abdomen distended, nontender Laboratory Laboratory Tests Test 01/12/17 01/13/17 09:10 05:08 Blood Gas Puncture Site RT RADIAL Blood Gas Patient Temperature 98.6 Blood Gas HCO3 21 Blood Gas Base Excess -2.3 Blood Gas Oxygen Saturation 90 Arterial Blood pH 7.44 Arterial Blood Partial 32 Pressure CO2 Arterial Blood Partial 66 Pressure O2 Arterial Blood Oxygen Content 15.7 Arterial Blood 1.6 Carboxyhemoglobin Arterial Blood Methemoglobin 1.2 Blood Gas Hemoglobin 12.4 Oxygen Delivery Device NASAL CANNULA Blood Gas Liter Flow 30 Blood Gas Inspired Oxygen 80 White Blood Count 12.7 Red Blood Count 3.93 Hemoglobin 11.9 Hematocrit 34.5 Mean Corpuscular Volume 87.8 Mean Corpuscular Hemoglobin 30.4 Mean Corpuscular Hemoglobin 34.6 Concent Red Cell Distribution Width 13.4 Platelet Count 137 Mean Platelet Volume 10.3 Sodium Level 138 Potassium Level 3.3 Chloride Level 99 Carbon Dioxide Level 24.3 Anion Gap 15 Blood Urea Nitrogen 59 Creatinine 2.11 Estimat Glomerular Filtration 30 Rate Random Glucose 136 Calcium Level 8.7 Imaging Last 48 hours Impressions Abdomen X-Ray 01/13/17 0000 Signed Impressions: Service Date/Time: Friday, January 13, 2017 05:05 - CONCLUSION: Gas distended colon. Isaac Steiner Jr., MD Chest X-Ray 01/12/17 0000 Signed Impressions: Service Date/Time: Thursday, January 12, 2017 08:04 - CONCLUSION: 1. Bibasilar fusions in diffuse parenchymal opacification suggesting congestive failure. This appears mildly worsened when compared to previous dated 01/11/17. Mitch Lopez MD Assessment and Plan Plan acute TBAD, new ileus 1. BP control with goal SBP 130 - beta blockade 2. NPO and reattempt NGT. CT (NC) C/A/P 3. ATN - stable; prob no more diuresis 4. Watch for recurrent pain 5. OOB TC and ambulate ad jonna Antwon Scruggs MD FACS neuropsychology director [facility] at [facility] [phone] Antwon Scruggs MD Jan 13, 2017 08:34
[2017-01-13] MEDS: ACETYLCYSTEINE 20% 6,000 MG/30 ML ORAL SOLN VIAL PO SCH ×2 (10:12→20:54)
--- NOTE | 2017-01-13 10:23 | RADRPT ---
EXAM DATE/TIME: 01/13/2017 09:55 [facility] COMPARISON: CTA THORACIC ABDOMINAL AORTA W 3D RECON, January 07, 2017, 15:41. INDICATIONS : Dyspnea RADIATION DOSE: 18.06 CTDIvol (mGy) ; Combined studies - Thorax/Abdomen/Pelvis MEDICAL HISTORY : Hypertension. SURGICAL HISTORY : Coronary artery stent. ENCOUNTER: Initial ACUITY: 1 day PAIN SCALE: 5/10 LOCATION: chest TECHNIQUE: Volumetric scanning of the chest was performed. Using automated exposure control and adjustment of t he mA and/or kV according to patient size, radiation dose was kept as low as reasonably achievable to obtain optimal diagnostic quality images. FINDINGS: Moderate bilateral pleural effusions are present, slightly larger on the right than the left. Patchy parenchymal infiltrates and dependent posterior lung atelectasis are noted.In the mediastinum, there is mild enlargement of precarinal and paratracheal lymph nodes, potentially reactive. Thoracic aortic dissection is again appreciated. Coronary artery calcifications are noted. CONCLUSION: Bilateral pleural effusions, compressive atelectasis and patchy areas of alveolar infiltrate. Farooq Ragland MD on January 13, 2017 at 10:18 Board Certified Radiologist. This report was verified electronically.
[2017-01-13] MEDS ORDERED: ATROPINE SULFATE 1 MG/10 ML SYRINGE ONE (10:24)
--- NOTE | 2017-01-13 10:32 | RADRPT ---
EXAM DATE/TIME: 01/13/2017 09:55 [facility] COMPARISON: No previous studies available for comparison. INDICATIONS : Abdominal distention, vomiting ORAL CONTRAST: No oral contrast ingested. RADIATION DOSE: 18.06 CTDIvol (mGy) ; Combined studies - Thorax/Abdomen/Pelvis MEDICAL HISTORY : Hypertension. SURGICAL HISTORY : Coronary artery stent. ENCOUNTER: Initial ACUITY: 1 day PAIN SCALE: 5/10 LOCATION: abdomen TECHNIQUE: Volumetric scanning of the abdomen and pelvis was performed. Using automated exposure control and ad justment of the mA and/or kV according to patient size, radiation dose was kept as low as reasonably achievable to obtain optimal diagnostic quality images. FINDINGS: The colon is moderately dilated with air and fluid, particularly proximally with cecum dilated to abo ut 12 cm. The bowel tapers gradually to a normal distal caliber. The small bowel is nondilated. The solid organs are unremarkable for noncontrast appearance. There is no evidence of mass, adenopathy or abscess in the abdomen or pelvis. Urinary bladder is deco mpressed with Salgado catheter. A small fat-containing umbilical hernia is present. CONCLUSION: Dilated colon with appearance suggestive of adynamic ileus. Farooq Ragland MD on January 13, 2017 at 10:25 Board Certified Radiologist. This report was verified electronically.
--- NOTE | 2017-01-13 11:15 | HHI.CCPN ---
Subjective Remarks/Hospital Course 81 yo WM with past medical history of hypertension, hyperlipidemia, coronary artery disease with stents 2 placed 17 years ago who presented to [facility] after he developed the sudden onset of severe chest pain at 11:45 this morning. He states the pain feels like pressure in the epigastrium and left chest and radiates to the back. It was associated with diaphoresis. He states that he could not get comfortable and that nothing would relieve his severe pain so he was transported to the hospital by [facility]. Workup demonstrated troponin of 0.02. With EKG showing sinus bradycardia with first-degree AV block and no ST or T-wave abnormalities. 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 The mesenteric arteries or in the true lumen and the right renal artery is in the false lumen. His blood pressure upon presentation was 226/ 101. He was started on a nicardipine drip which is currently going at 15 mg per hour and blood pressure is 149/59. He is being started on a labetalol drip to target systolic blood pressure less than 110. He reports persistent pain in his epigastrium and left flank and complains of thirst. 12/29/16: BP improved control on Labetalol gtt. NPO now. Once cleared by vascular surgery, will start PO antihypertensives. Target less than 110. Creat worsened from 1.4 to 2.4. Nephrology consulted 01/09: still on clevidipine. Cr plateaued at 2.7. uop adequate. no complaints. 01/10: still on clevidipine despite increasing anti-htn regimen. overnight became hypoxic requiring BiPAP. given bumex with good response and improvement in oxygenation. 01/11: tolerating regular diet. off clevidipine. on oral meds with good bp control. still on high flow NC. renal function improves, but still oliguric and not net negative fluid balance despite attempts at forced diuresis. patient states he feels good this morning. 01/12: doing well this morning. o2 requirement still very high, on high-flow 40LPM with 80% fio2. however, not dyspneic. not complaining of SOB. tolerated breakfast. good diuresis yesterday. 01/13: still high fio2 requirements. abdomen very distended this morning. 2 episodes of emesis overnight. KUB with colonic ileus. good diuresis again yesterday. Objective Vital Signs Date Time Temp Pulse Resp B/P Pulse Ox O2 Delivery O2 Flow Rate FiO2 01/13/17 07:22 98.3 92 22 140/69 96 01/13/17 07:22 Nasal Cannula 100 01/13/17 07:16 35.00 Intake and Output 01/12/17 01/12/17 01/13/17 08:00 16:00 00:00 Intake Total 430 ml 800 ml Output Total 1400 ml 1490 ml Balance -970 ml -690 ml Result Diagram: 01/13/17 0508 01/13/17 0508 Objective Remarks GENERAL: elderly male, lying in bed. SKIN: Warm and dry, well perfused HEAD: Atraumatic. Normocephalic. EYES: Pupils equal and round. No scleral icterus. No injection or drainage. ENT: No nasal bleeding or discharge. Mucous membranes pink and moist. NECK: Trachea midline. no jvd today. CARDIOVASCULAR: Regular rate and rhythm. No murmurs. RESPIRATORY: No accessory muscle use. some bibasilar crackles this morning. GASTROINTESTINAL: Abdomen tympanic, distended. No tenderness to palpation. No guarding. MUSCULOSKELETAL/VASC: Extremities without clubbing, cyanosis. no edema of LEs today. DPs and posterior tibial artery pulses are palpable bilaterally. Feet are warm and well perfused. NEUROLOGICAL: Awake and alert, RASS 0. A/P Assessment and Plan Assessment: 81yM with acute type B dissection complicated by hypertensive emergency and acute kidney injury. his BRYCE is stable. Much less volume overloaded. Now has severe colonic ileus. This is likely contributing significantly to his high fio2 requirements. Will obtain non-contrasted CT abd/ pelvis and if no obstruction, will proceed with Neostigmine. may require decompressive sigmoidoscopy if no success. I do think his ileus and distention is significantly worsening his already poor respiratory status. NEURO: Pain secondary to aortic dissection Oxycodone 5 mg by mouth every 4 hours when necessary pain. Morphine 2 mg IV every hours when necessary breakthrough pain. RESP: Acute Hypoxic Respiratory failure high flow nasal cannula. IS every hour awake. wean o2 as tolerated. OOB to chair. PT consult. 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 Oral anti-htn regimen: labetalol 300mg po q6h nifedipine 30mg q6h. labetalol/hydralazine iv. Aspirin 81 mg daily Lipitor 40 mg daily at bedtime GI: Manuel's syndrome Severe Colonic Ileus Severe Constipation - tolerating heart healthy diet. - neostigmine today - if no BM, will ask GI to perform decompressive sigmoidoscopy. FEN/RENAL: Acute kidney injury- resolving. -with unknown baseline creatinine. -continue morales catheter. -hold on further diuresis today. hold ivf for now. will closely watch volume status today. - icu electrolyte protocol. - nephrology following. ID: Monitor for signs and symptoms of infection HEME: No acute hematologic issues ENDO: Euglycemic PROPH: Protonix 40 mg by mouth daily for stress ulcer prophylaxis. Lovenox 30 mg subcutaneous every 24 hours for DVT prophylaxis ACCESS: -piv. Dispo: remain in ICU while on high-flow NC. Jake Durand MD Jan 13, 2017 11:15
--- NOTE | 2017-01-13 11:48 | HHI.NPPN ---
Subjective History of Present Illness This patient is an 81-year-old male. The patient has a history of hypertension, coronary artery disease with previous PTCA. 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 Right renal artery lumen is said to be in the false lumen on CTA with impaired perfusion right kidney. Left kidney said to be reasonably well perfused. Subsequent ultrasound however indicating patent bilateral renal arteries. Admission creatinine level I.4. Unfortunately I have no renal indices available prior to this presently. Creatinine level has deteriorated to a level of 2.63 day of consultation. Patient's presenting blood pressure was 226/101. It has been treated aggressively to reduce his systolic pressure below 120. Despite aggressive IV hydration with normal saline patient's urine output has been somewhat poor. On questioning the patient he is unaware of any previous CKD. He was using Aleve day of admission. Interval History The patient has some nausea earlier today and evaluate his having ileus per surgery. Review of Systems General Constitutional: Fatigue Gastrointestinal Gastrointestinal: Nausea & Vomiting Objective Data Data 01/12/17 01/13/17 19:00 07:00 Intake Total 800 ml 540 ml Output Total 1490 ml 2750 ml Balance -690 ml -2210 ml Intake Oral 800 ml 540 ml Output Urine Total 1490 ml 1450 ml Emesis 1300 ml # Bowel Movements 0 0 Vital Signs Date Time Temp Pulse Resp B/P Pulse Ox O2 Delivery O2 Flow Rate FiO2 01/13/17 11:06 96 Nasal Cannula 100 01/13/17 11:05 91 01/13/17 11:04 98.3 91 22 138/64 96 01/13/17 07:22 98.3 92 22 140/69 96 01/13/17 07:22 96 Nasal Cannula 100 01/13/17 07:21 92 01/13/17 07:16 94 High Flow Nasal Cannula 35.00 100 01/13/17 04:00 99.6 96 22 145/76 96 01/13/17 04:00 96 Nasal Cannula 100 01/13/17 04:00 92 01/13/17 00:00 92 22 129/72 92 01/13/17 00:00 92 01/13/17 00:00 90 Nasal Cannula 100 01/12/17 20:00 98.8 91 20 134/74 90 01/12/17 20:00 94 High Flow Nasal Cannula 35.00 100 01/12/17 20:00 90 01/12/17 19:51 92 High Flow Nasal Cannula 30.00 80 01/12/17 19:00 88 Nasal Cannula 80 01/12/17 17:25 Nasal Cannula 80 01/12/17 15:06 98.0 82 22 142/64 88 01/12/17 15:05 82 -: 01/13/17 0508 01/13/17 0508 Physical Exam General Appearance: No Acute Distress, Comfortable Eyes Eye Exam: Sclera White Pulmonary Resp Exam: Clear Bilaterally, Breath Sounds Equal, No Distress Cardiology CV Exam: Regular, Normal Sinus Rhythm, Good Perfusion Gastrointestinal/Abdomen GI Exam: Soft, Non-Tender Integumentary Skin Exam: Clear, Warm, Normal Turgor Extremeties Extremities Exam: Trace Edema Neurologic Neuro Exam: Alert, Awake Psychiatric Psych Exam: Appropriate Responses Assessment/Plan Discussed Condition With: Patient, Spouse Problem List: (1) Acute kidney insufficiency Plan: The creatinine has risen somewhat since yesterday most likely secondary to necessary diuresis and also the development of an apparent ileus overnight. Diuretics have been discontinued. Repeat renal indices in a.m. Case discussed with vascular surgeon. Medications should be adjusted for the patient's estimated GFR if clinically indicated. Avoid agents with significant potential for nephrotoxicity possible including NSAIDs for analgesia, . Would also avoid MORENA inhibitor and angiotensin receptor blockers at this time.. Gadolinium is contraindicated if the GFR is below 30. (2) Abdominal aortic aneurysm dissection Plan: Management per vascular surgery. (3) Oliguria Plan: Resolved (4) HTN (hypertension) Plan: Defer management to vascular surgery for the present time. Noted patient is being started on the short acting calcium channel irasema Clevidipine. Also on hydralazine the beta irasema. Dionisio Oden MD Jan 13, 2017 11:48
[2017-01-13] MEDS ORDERED: POTASSIUM CHLOR 20 MEQ PREMIX 100 ML IV ONE (12:00)
[2017-01-13] MEDS ORDERED: METHYLNALTREXONE BROMIDE 12 MG/0.6 ML VIAL SQ ONE (12:15)
--- NOTE | 2017-01-13 13:14 | PD.CONS ---
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 He is being followed by CVT and currently being treated with tight blood pressure control and the plan was for a repeat CT once his creatinine improved. He developed abdominal distention a few days ago and was started on Dulcolax suppository, Miralax 17gram po BID, Lactulose 30mL po BID, and Pericolace i tab po BID. He received a bottle of magnesium citrate last night and an NGT placement was attempted, but he did not tolerate. He was also given a dose of Reglan earlier today without any results. He had a repeat CT scan abdomen and pelvis without IV contrast (01/13/17)---> dilated colon with appearance of adynamic ileus. Neostigmine was given to the patient earlier today and he has not yet had a bowel movement. Relistor 12mg sq x 1 has been ordered, but has not been given yet. The patient is resting in bed in no distress. He does have significant distention that is tympanic. He has mild diffuse tenderness. He denies any nausea or vomiting. He reports that his last BM was last Thursday, but that he is passing flatus. He denies any issues with constipation. He last had a colonoscopy about 15 years ago. PFSH Past Medical History HTN Hyperlipidemia CAD Past Surgical History Urinary stents TURP Coded Allergies: No Known Allergies (Unverified , 01/07/17) Medications Allergies Coded Allergies Type Severity Reaction Last Updated Verified No Known Allergies 01/07/17 No Active Scripts Medications Dose Route/Sig Days Date Category Pravastatin 40 Mg Tab 40 Mg PO DAILY 01/08/17 Reported [place]-3 Fish Oil/Vitamin (Fish Oil-Cholecalciferol) 1,000-1,000 Mg Cap 1 Cap PO DAILY 01/08/17 Reported Omeprazole 20 Mg Tab 20 Mg PO DAILY 01/08/17 Reported Amlodipine (Amlodipine Besylate) 5 Mg Tab 5 Mg PO DAILY 01/08/17 Reported Atenolol 50 Mg Tab 50 Mg PO DAILY 01/07/17 Reported Family History Noncontributory Social History He does not smoke, quit smoking 30 years ago. he did smoke up to 3 packs per day for 25 years. Review of Systems Constitutional: COMPLAINS OF: Fatigue Respiratory: DENIES: Cough Cardiovascular: COMPLAINS OF: Chest pain (on admission) Gastrointestinal: COMPLAINS OF: Abdominal pain (mild tenderness), Constipation , Swelling of Abdomen, DENIES: Nausea, Vomiting Hematologic/lymphatic: DENIES: Bruising Neurologic: DENIES: Headache Psychiatric: DENIES: Confusion GI Exam Vitals I&O Vital Signs Date Time Temp Pulse Resp B/P Pulse Ox O2 Delivery O2 Flow Rate FiO2 01/13/17 11:06 96 Nasal Cannula 100 01/13/17 11:05 91 01/13/17 11:04 98.3 91 22 138/64 96 01/13/17 07:22 98.3 92 22 140/69 96 01/13/17 07:22 96 Nasal Cannula 100 01/13/17 07:21 92 01/13/17 07:16 94 High Flow Nasal Cannula 35.00 100 01/13/17 04:00 99.6 96 22 145/76 96 01/13/17 04:00 96 Nasal Cannula 100 01/13/17 04:00 92 01/13/17 00:00 92 22 129/72 92 01/13/17 00:00 92 01/13/17 00:00 90 Nasal Cannula 100 01/12/17 20:00 98.8 91 20 134/74 90 01/12/17 20:00 94 High Flow Nasal Cannula 35.00 100 01/12/17 20:00 90 01/12/17 19:51 92 High Flow Nasal Cannula 30.00 80 01/12/17 19:00 88 Nasal Cannula 80 01/12/17 17:25 Nasal Cannula 80 01/12/17 15:06 98.0 82 22 142/64 88 01/12/17 15:05 82 I/O 01/12/17 01/12/17 01/12/17 01/13/17 01/13/17 01/13/17 07:00 15:00 23:00 07:00 15:00 23:00 Intake Total 430 ml 800 ml 540 ml Output Total 1400 ml 1490 ml 2750 ml Balance -970 ml -690 ml -2210 ml Intake Oral 430 ml 800 ml 540 ml Output Urine Total 1400 ml 1490 ml 1450 ml Emesis 1300 ml # Bowel Movements 0 0 0 Imaging Last Impressions Chest CT 01/13/17 0000 Signed Impressions: Service Date/Time: [place], January 13, 2017 09:55 - CONCLUSION: Bilateral pleural effusions, compressive atelectasis and patchy areas of alveolar infiltrate. Farooq Ragland MD Abdomen/Pelvis CT 01/13/17 0000 Signed Impressions: Service Date/Time: Friday, January 13, 2017 09:55 - CONCLUSION: Dilated colon with appearance suggestive of adynamic ileus. Farooq Ragland MD Abdomen X-Ray 01/13/17 0000 Signed Impressions: Service Date/Time: Friday, January 13, 2017 05:05 - CONCLUSION: Gas distended colon. Isaac Steiner Jr., MD Chest X-Ray 01/12/17 0000 Signed Impressions: Service Date/Time: Thursday, January 12, 2017 08:04 - CONCLUSION: 1. Bibasilar fusions in diffuse parenchymal opacification suggesting congestive failure. This appears mildly worsened when compared to previous dated 01/11/17. Mitch Lopez MD Renal Ultrasound 01/08/17 0000 Signed Impressions: Service Date/Time: December 08:52 - CONCLUSION: Kidneys within normal limits. Renal arteries patent. Alex Velasco MD Aorta CTA 01/07/17 1453 Signed Impressions: Service Date/Time: Saturday, January 07, 2017 15:41 - CONCLUSION: Dissection as described above. The right renal artery is predominantly in the false lumen. Mesenteric arteries are in the true lumen. This does not extend over the arch. Andrew Lopez MD FACR Laboratory Test 01/13/17 05:08 White Blood Count 12.7 TH/MM3 Red Blood Count 3.93 MIL/MM3 Hemoglobin 11.9 GM/DL Hematocrit 34.5 % Mean Corpuscular Volume 87.8 FL Mean Corpuscular Hemoglobin 30.4 PG Mean Corpuscular Hemoglobin 34.6 % Concent Red Cell Distribution Width 13.4 % Platelet Count 137 TH/MM3 Mean Platelet Volume 10.3 FL Sodium Level 138 MEQ/L Potassium Level 3.3 MEQ/L Chloride Level 99 MEQ/L Carbon Dioxide Level 24.3 MEQ/L Anion Gap 15 MEQ/L Blood Urea Nitrogen 59 MG/DL Creatinine 2.11 MG/DL Estimat Glomerular Filtration 30 ML/MIN Rate Random Glucose 136 MG/DL Calcium Level 8.7 MG/DL Physical Examination HEENT: Normocephalic; atraumatic; no jaundice. CHEST: CTA, diminished bases CARDIAC: RRR ABDOMEN: Distended, tympanic, hypoactive bowel sounds, diffuse tenderness; no hepatosplenomegaly. States he is passing flatus EXTREMITIES: No clubbing, cyanosis, or edema. SKIN: Normal; no rash; no jaundice. CLIMATOLOGY TEACHER: No focal deficits; alert and oriented times three. Assessment and Plan Plan ASSESSMENT: - Severe colonic ileus with cecal dilation to 12 cm. No response to Dulcolax suppository, Miralax 17gram po BID, Lactulose 30mL po BID, Pericolace i tab po BID, Magnesium citrate last night, Reglan x 1, Neostigmine. CT scan abdomen and pelvis without IV contrast (01/13/17)---> dilated colon with appearance of adynamic ileus. Neostigmine was given to the patient earlier today and he has not yet had a bowel movement. Relistor 12mg sq x 1 has been ordered, but has not been given yet. The patient is resting in bed in no distress. He does have significant distention that is tympanic with mild diffuse tenderness. He denies any nausea or vomiting. NGT placement was unsuccessful. He reports that his last BM was last Thursday, but that he is passing flatus. He denies any issues with constipation. He last had a colonoscopy about 15 years ago. Plan is for decompressive colonoscopy today. - Type B Aortic Dissection. CVT following, tight blood pressure control. - Respiratory failure, improved. Now on N/C. - BRYCE. Renal following. - Hyperlipidemia, HTN per primary. PLAN: - Plan for decompressive colonoscopy today - Obtain consents - NPO - Cont. bowel regimen- dulcolax, miralax, lactulose, pericolace - Add Reglan at reduced dose for renal impairment - Supportive care - Further recommendations to follow based on results of above - Pt seen and examined by Dr. Mari and myself and this note is written on his behalf Latrice Welch Jan 13, 2017 13:14
[2017-01-13] MEDS: METOCLOPRAMIDE HCL 10 MG/2 ML VIAL IV PUSH SCH ×2 (14:05→20:54)
[2017-01-13] MEDS ORDERED: MIDAZOLAM HCL 2 MG/2 ML VIAL ONE (15:37)
[2017-01-13] MEDS ORDERED: PROPOFOL 200 MG/20 ML AMP IV ONE (15:56)
[2017-01-13] MEDS: ENOXAPARIN SODIUM 30 MG/0.3 ML SYRINGE SQ SCH (20:52)
[2017-01-13] MEDS: ATORVASTATIN 40 MG TAB PO SCH (20:52)
[2017-01-14] VITALS (10 sets, daily range): BP systolic 120–135; BP diastolic 59–66; PULSE 80–85; RESP 16–18; TEMP 97.9–99; O2SAT 87–96
[2017-01-14] MEDS: RESP: ALBUTEROL 2.5 MG/IPRATROPIUM 0.5 MG NEB (SCH) NEB ×6 (00:52→20:50)
[2017-01-14 05:39] LABS: HEMATOCRIT 33.7 % (39.0-51.0); MEAN CELL VOLUME 88.7 FL (80.0-100.0); MEAN CORPUSCULAR HEMOGLOBIN 29.2 PG (27.0-34.0); MEAN CORPUSCULAR HGB CONC 32.9 % (32.0-36.0); PLATELET COUNT 155 TH/MM3 (150-450); RED BLOOD COUNT 3.81 MIL/MM3 (4.50-5.90); RED CELL DISTRIBUTION WIDTH 13.6 % (11.6-17.2); REVIEW FLAG FINAL
[2017-01-14] MEDS: cloNIDine HCL 0.3 MG TAB PO SCH ×3 (05:56→21:12)
[2017-01-14] MEDS: METOCLOPRAMIDE HCL 10 MG/2 ML VIAL IV PUSH SCH ×3 (05:56→21:12)
[2017-01-14] MEDS: LABETALOL HCL 300 MG TAB PO SCH ×4 (05:57→17:00)
[2017-01-14] MEDS: NIFEdipine 10 MG CAP PO SCH ×4 (05:57→17:00)
[2017-01-14 06:08] LABS: POTASSIUM 2.8 MEQ/L (3.5-5.1)
[2017-01-14] MEDS: BISACODYL 10 MG SUPP RECTAL SCH (09:00)
[2017-01-14] MEDS: ACETYLCYSTEINE 20% 6,000 MG/30 ML ORAL SOLN VIAL PO SCH (09:00)
[2017-01-14] MEDS: POLYETHYLENE GLYCOL 17 GM PKG PO SCH ×2 (09:34→20:16)
[2017-01-14] MEDS: DOCUSATE SODIUM 50 MG/SENNA 8.6 MG TAB PO SCH ×2 (09:34→20:15)
[2017-01-14] MEDS: ASPIRIN 81 MG CHEW TAB PO SCH (09:34)
[2017-01-14] MEDS: LACTULOSE SYRUP 20 GM/30 ML CUP PO SCH ×2 (09:34→20:15)
[2017-01-14] MEDS: PANTOPRAZOLE SOD 40 MG DELAYED RELEASE TAB PO SCH (09:34)
[2017-01-14] MEDS: POTASSIUM CHLOR 20 MEQ PREMIX 100 ML IV PRN ×4 (10:30→16:53)
[2017-01-14] MEDS ORDERED: MAGNESIUM OXIDE 400 MG TAB PO PRN (11:00)
[2017-01-14] MEDS ORDERED: POTASSIUM PHOSPHATE INJ 30 MMOL in SODIUM CHLOR 0.9% 250 ML INJ 250 ML IV PRN (11:00)
[2017-01-14] MEDS ORDERED: SODIUM PHOSPHATE INJ 30 MMOL in SODIUM CHLOR 0.9% 250 ML INJ 240 ML IV PRN (11:00)
[2017-01-14] MEDS ORDERED: MAGNESIUM SULFATE INJ 2 GM in SODIUM CHLORIDE 0.9% INJ 96 ML IV PRN (11:00)
[2017-01-14] MEDS ORDERED: POTASSIUM PHOSPHATE MONOBASIC 500 MG TAB PO PRN (11:00)
[2017-01-14] MEDS ORDERED: POTASSIUM CHLOR 20 MEQ PREMIX 100 ML IV PRN (11:00)
[2017-01-14] MEDS ORDERED: MAGNESIUM SULFATE INJ 4 GM in SODIUM CHLORIDE 0.9% INJ 92 ML IV PRN (11:00)
[2017-01-14] MEDS ORDERED: POTASSIUM CHLOR 40 MEQ PREMIX 100 ML IV PRN ×2 (11:00)
[2017-01-14] MEDS ORDERED: POTASSIUM PHOSPHATE MONOBASIC 500 MG TAB PO/TUBE PRN (11:00)
--- NOTE | 2017-01-14 13:33 | HHI.CCPN ---
Subjective Remarks/Hospital Course 81 yo WM with past medical history of hypertension, hyperlipidemia, coronary artery disease with stents 2 placed 17 years ago who presented to [facility] after he developed the sudden onset of severe chest pain at 11:45 this morning. He states the pain feels like pressure in the epigastrium and left chest and radiates to the back. It was associated with diaphoresis. He states that he could not get comfortable and that nothing would relieve his severe pain so he was transported to the hospital by [facility]. Workup demonstrated troponin of 0.02. With EKG showing sinus bradycardia with first-degree AV block and no ST or T-wave abnormalities. 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 The mesenteric arteries or in the true lumen and the right renal artery is in the false lumen. His blood pressure upon presentation was 226/ 101. He was started on a nicardipine drip which is currently going at 15 mg per hour and blood pressure is 149/59. He is being started on a labetalol drip to target systolic blood pressure less than 110. He reports persistent pain in his epigastrium and left flank and complains of thirst. 12/29/16: BP improved control on Labetalol gtt. NPO now. Once cleared by vascular surgery, will start PO antihypertensives. Target less than 110. Creat worsened from 1.4 to 2.4. Nephrology consulted 01/09: still on clevidipine. Cr plateaued at 2.7. uop adequate. no complaints. 01/10: still on clevidipine despite increasing anti-htn regimen. overnight became hypoxic requiring BiPAP. given bumex with good response and improvement in oxygenation. 01/11: tolerating regular diet. off clevidipine. on oral meds with good bp control. still on high flow NC. renal function improves, but still oliguric and not net negative fluid balance despite attempts at forced diuresis. patient states he feels good this morning. 01/12: doing well this morning. o2 requirement still very high, on high-flow 40LPM with 80% fio2. however, not dyspneic. not complaining of SOB. tolerated breakfast. good diuresis yesterday. 01/13: still high fio2 requirements. abdomen very distended this morning. 2 episodes of emesis overnight. KUB with colonic ileus. good diuresis again yesterday. 01/14: fio2 requirements decreasing. down to 50% from 100%. decompressive colonoscopy yesterday with placement of rectal tube. Cr downtrending with + fluid balance yesterday. Objective Vital Signs Date Time Temp Pulse Resp B/P Pulse Ox O2 Delivery O2 Flow Rate FiO2 01/14/17 07:50 98.6 85 16 129/66 95 01/14/17 07:40 Nasal Cannula 35 01/14/17 07:24 35.00 Intake and Output 01/13/17 01/13/17 01/14/17 08:00 16:00 00:00 Intake Total 540 ml 450 ml Output Total 2750 ml 1470 ml Balance -2210 ml -1020 ml Result Diagram: 01/14/17 04501/14/17 045 Objective Remarks GENERAL: elderly male, lying in bed. SKIN: Warm and dry, well perfused HEAD: Atraumatic. Normocephalic. EYES: Pupils equal and round. No scleral icterus. No injection or drainage. ENT: No nasal bleeding or discharge. Mucous membranes pink and moist. NECK: Trachea midline. no jvd today. CARDIOVASCULAR: Regular rate and rhythm. No murmurs. RESPIRATORY: No accessory muscle use. still on high flow NC, fio2 50%. GASTROINTESTINAL: Abdomen tympanic, distended. No tenderness to palpation. No guarding. MUSCULOSKELETAL/VASC: Extremities without clubbing, cyanosis. no edema of LEs today. DPs and posterior tibial artery pulses are palpable bilaterally. Feet are warm and well perfused. NEUROLOGICAL: Awake and alert, RASS 0. A/P Assessment and Plan Assessment: 81yM with acute type B dissection complicated by hypertensive emergency and acute kidney injury. his BRYCE is stable. Ileus improved. fio2 requirements improving. still needs aggressive pulmonary toilet. NEURO: Pain secondary to aortic dissection Oxycodone 5 mg by mouth every 4 hours when necessary pain. Morphine 2 mg IV every hours when necessary breakthrough pain. RESP: Acute Hypoxic Respiratory failure high flow nasal cannula. IS every hour awake. wean o2 as tolerated. ambulate. aggressive pulm toilet. OOB to chair. PT consult. 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 Oral anti-htn regimen: labetalol 300mg po q6h nifedipine 30mg q6h. labetalol/hydralazine iv. Aspirin 81 mg daily Lipitor 40 mg daily at bedtime GI: Granger's syndrome- resolving. Severe Colonic Ileus Severe Constipation- resolved - tolerating heart healthy diet. - GI following. FEN/RENAL: Acute kidney injury- resolving. -with unknown baseline creatinine. -continue morales catheter. -hold on further diuresis today. hold ivf for now. will closely watch volume status. - icu electrolyte protocol. - nephrology following. ID: Monitor for signs and symptoms of infection HEME: No acute hematologic issues ENDO: Euglycemic PROPH: Protonix 40 mg by mouth daily for stress ulcer prophylaxis. Lovenox 30 mg subcutaneous every 24 hours for DVT prophylaxis ACCESS: -piv. Dispo: remain in ICU while on high-flow NC. Jake Durand MD Jan 14, 2017 13:33
--- NOTE | 2017-01-14 16:02 | HHI.GIFU ---
Subjective Remarks Up in chair. States he is feeling better. He remains distended with mild diffuse tenderness. Rectal tube to LIWS- 300cc liquid stool out since procedure. (Latrice Welch) Objective Vitals I&O Vital Signs Date Time Temp Pulse Resp B/P Pulse Ox O2 Delivery O2 Flow Rate FiO2 01/14/17 15:11 90 Nasal Cannula 6.00 01/14/17 15:10 83 01/14/17 15:10 98.2 83 18 125/64 92 01/14/17 12:00 85 01/14/17 12:00 94 Nasal Cannula 6.00 01/14/17 12:00 98.5 85 18 129/64 92 01/14/17 07:50 98.6 85 16 129/66 95 01/14/17 07:40 95 Nasal Cannula 35 01/14/17 07:40 85 01/14/17 07:24 96 High Flow Nasal Cannula 35.00 60 01/14/17 04:00 80 01/14/17 04:00 95 Nasal Cannula 60 01/14/17 04:00 99.0 81 16 135/66 95 01/14/17 00:00 80 18 122/59 95 01/14/17 00:00 95 Nasal Cannula 60 01/14/17 00:00 80 01/13/17 21:50 94 01/13/17 21:46 94 High Flow Nasal Cannula 35.00 60 01/13/17 20:00 80 01/13/17 20:00 98.8 81 18 124/65 94 01/13/17 20:00 94 Nasal Cannula 60 I/O 01/13/17 01/13/17 01/13/17 01/14/17 01/14/17 01/14/17 07:00 15:00 23:00 07:00 15:00 23:00 Intake Total 540 ml 450 ml 480 ml Output Total 2750 ml 1470 ml 1300 ml Balance -2210 ml -1020 ml -820 ml Intake Oral 540 ml 300 ml 480 ml IV Total 150 ml Output Urine Total 1450 ml 1320 ml 1250 ml Stool Total 150 ml 50 ml Emesis 1300 ml # Bowel Movements 0 Laboratory Laboratory Tests Test 01/14/17 04:50 White Blood Count 12.0 Red Blood Count 3.81 Hemoglobin 11.1 Hematocrit 33.7 Mean Corpuscular Volume 88.7 Mean Corpuscular Hemoglobin 29.2 Mean Corpuscular Hemoglobin 32.9 Concent Red Cell Distribution Width 13.6 Platelet Count 155 Mean Platelet Volume 10.2 Sodium Level 141 Potassium Level 2.8 Chloride Level 104 Carbon Dioxide Level 27.0 Anion Gap 10 Blood Urea Nitrogen 59 Creatinine 1.59 Estimat Glomerular Filtration 42 Rate Random Glucose 113 Calcium Level 8.5 Imaging Last Impressions Chest CT 01/13/17 0000 Signed Impressions: Service Date/Time: Friday, January 13, 2017 09:55 - CONCLUSION: Bilateral pleural effusions, compressive atelectasis and patchy areas of alveolar infiltrate. Farooq Ragland MD Abdomen/Pelvis CT 01/13/17 0000 Signed Impressions: Service Date/Time: Friday, January 13, 2017 09:55 - CONCLUSION: Dilated colon with appearance suggestive of adynamic ileus. Farooq Ragland MD Abdomen X-Ray 01/13/17 0000 Signed Impressions: Service Date/Time: Friday, January 13, 2017 05:05 - CONCLUSION: Gas distended colon. Isaac Steiner Jr., MD Chest X-Ray 01/12/17 0000 Signed Impressions: Service Date/Time: Thursday, January 12, 2017 08:04 - CONCLUSION: 1. Bibasilar fusions in diffuse parenchymal opacification suggesting congestive failure. This appears mildly worsened when compared to previous dated 01/11/17. Mitch Lopez MD Renal Ultrasound 01/08/17 0000 Signed Impressions: Service Date/Time: December 08:52 - CONCLUSION: Kidneys within normal limits. Renal arteries patent. Alex Velasco MD Aorta CTA 01/07/17 1453 Signed Impressions: Service Date/Time: Saturday, January 07, 2017 15:41 - CONCLUSION: Dissection as described above. The right renal artery is predominantly in the false lumen. Mesenteric arteries are in the true lumen. This does not extend over the arch. Andrew Lopez MD FACR Physical Exam HEENT: Normocephalic; atraumatic; no jaundice. CHEST: CTA CARDIAC: RRR ABDOMEN: Semifirm, distended, mild diffuse tenderness; no hepatosplenomegaly; bowel sounds are present in all four quadrants. EXTREMITIES: No clubbing, cyanosis, or edema. SKIN: Normal; no rash; no jaundice. SKIN CARE INSTRUCTOR: No focal deficits; alert and oriented times three. (Latrice Welch) Assessment and Plan Plan ASSESSMENT: - Severe colonic ileus with cecal dilation to 12 cm. No response to Dulcolax suppository, Miralax 17gram po BID, Lactulose 30mL po BID, Pericolace i tab po BID, Magnesium citrate last night, Reglan x 1, Neostigmine. CT scan abdomen and pelvis without IV contrast (01/13/17)---> dilated colon with appearance of adynamic ileus. Neostigmine was given to the patient earlier today and he has not yet had a bowel movement. Relistor 12mg sq x 1 has been ordered, but has not been given yet. The patient is resting in bed in no distress. He does have significant distention that is tympanic with mild diffuse tenderness. He denies any nausea or vomiting. NGT placement was unsuccessful. He last had a colonoscopy about 15 years ago. He underwent decompressive colonoscopy ()---> fecal impaction, dilated bowel, rectal tube placement. Rectal tube to WS and he has had 300cc of liquid stool since tube was placed. He states that he feels much better, although he remains distended with mild diffuse tenderness. KUB ordered- pending. - Type B Aortic Dissection. CVT following, tight blood pressure control. - Respiratory failure, improved. Now on N/C. - BRYCE. Renal following. - Hyperlipidemia, HTN per primary. PLAN: - Full liquids - KUB today - Cont. Reglan - Cont. bowel regimen- dulcolax, miralax, lactulose, pericolace - OOB to chair - Supportive care - Further recommendations to follow based on results of above - Pt seen and examined by Dr. Contreras and myself and this note is written on his behalf (Latrice Welch) Physician Comments Seen and examined with BUILDING MAINTENANCE CUSTODIAN<. still distended, continue aggressive laxative regimen.KUB in am. (Raul Contreras MD) Latrice Welch Jan 14, 2017 16:02 Raul Contreras MD Jan 15, 2017 18:52
--- NOTE | 2017-01-14 16:49 | RADRPT ---
EXAM DATE/TIME: 01/14/2017 15:05 [facility] COMPARISON: ABDOMEN KUB ONLY, January 13, 2017, 5:05. INDICATIONS : Abdominal pain. MEDICAL HISTORY : Hypertension. SURGICAL HISTORY : Coronary artery stent. ENCOUNTER: Initial ACUITY: 4 - 6 days PAIN SCORE: 4/10 LOCATION: Bilateral abdomen FINDINGS: Supine view of the abdomen was performed. There has been interval insertion of a rectal tube with dec ompression of the descending portions of the colon. There is still air distention of the more proxima l colon, however. No pneumoperitoneum. Levorotoscoliosis of the thoracolumbar spine with associated d egenerative changes. CONCLUSION: 1. Interval insertion of a rectal tube with decompression of the descending colon. 2. There is still air distention of the more proximal colon, however. No pneumoperitoneum. Tam Ledesma MD on January 14, 2017 at 16:46 Board Certified Radiologist. This report was verified electronically.
--- NOTE | 2017-01-14 16:51 | HHI.NPPN ---
Subjective History of Present Illness This patient is an 81-year-old male. The patient has a history of hypertension, coronary artery disease with previous PTCA. 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 Right renal artery lumen is said to be in the false lumen on CTA with impaired perfusion right kidney. Left kidney said to be reasonably well perfused. Subsequent ultrasound however indicating patent bilateral renal arteries. Admission creatinine level I.4. Unfortunately I have no renal indices available prior to this presently. Creatinine level has deteriorated to a level of 2.63 day of consultation. Patient's presenting blood pressure was 226/101. It has been treated aggressively to reduce his systolic pressure below 120. Despite aggressive IV hydration with normal saline patient's urine output has been somewhat poor. On questioning the patient he is unaware of any previous CKD. He was using Aleve day of admission. Interval History Patient sitting in a chair. Indicating that his abdomen was feeling somewhat better today. GI note reviewed. Vascular note reviewed. Review of Systems General Constitutional: Fatigue Gastrointestinal Gastrointestinal: Nausea & Vomiting Objective Data Data 01/13/17 01/14/17 19:00 07:00 Intake Total 450 ml 480 ml Output Total 1470 ml 1300 ml Balance -1020 ml -820 ml Intake Oral 300 ml 480 ml IV Total 150 ml Output Urine Total 1320 ml 1250 ml Stool Total 150 ml 50 ml Vital Signs Date Time Temp Pulse Resp B/P Pulse Ox O2 Delivery O2 Flow Rate FiO2 01/14/17 15:11 90 Nasal Cannula 6.00 01/14/17 15:10 83 01/14/17 15:10 98.2 83 18 125/64 92 01/14/17 12:00 85 01/14/17 12:00 94 Nasal Cannula 6.00 01/14/17 12:00 98.5 85 18 129/64 92 01/14/17 07:50 98.6 85 16 129/66 95 01/14/17 07:40 95 Nasal Cannula 35 01/14/17 07:40 85 01/14/17 07:24 96 High Flow Nasal Cannula 35.00 60 01/14/17 04:00 80 01/14/17 04:00 95 Nasal Cannula 60 01/14/17 04:00 99.0 81 16 135/66 95 01/14/17 00:00 80 18 122/59 95 01/14/17 00:00 95 Nasal Cannula 60 01/14/17 00:00 80 01/13/17 21:50 94 01/13/17 21:46 94 High Flow Nasal Cannula 35.00 60 01/13/17 20:00 80 01/13/17 20:00 98.8 81 18 124/65 94 01/13/17 20:00 94 Nasal Cannula 60 -: 01/14/17 0450 01/14/17 0450 Physical Exam General Appearance: No Acute Distress, Comfortable Eyes Eye Exam: Sclera White Pulmonary Resp Exam: Clear Bilaterally, Breath Sounds Equal, No Distress Cardiology CV Exam: Regular, Normal Sinus Rhythm, Good Perfusion Gastrointestinal/Abdomen GI Exam: Soft, Non-Tender Integumentary Skin Exam: Clear, Warm, Normal Turgor Extremeties Extremities Exam: Trace Edema (ankles only.) Neurologic Neuro Exam: Alert, Awake Psychiatric Psych Exam: Appropriate Responses Assessment/Plan Discussed Condition With: Patient, Spouse Problem List: (1) Acute kidney insufficiency Plan: Patient's creatinine level has improved significantly since yesterday and better than it was 48 hours ago. No indication for diuresis today as mentioned by vascular. Urine output actually is quite good. Baseline creatinine level to be determined. Medications should be adjusted for the patient's estimated GFR if clinically indicated. Avoid agents with significant potential for nephrotoxicity possible including NSAIDs for analgesia, . Would also avoid MORENA inhibitor and angiotensin receptor blockers at this time.. Gadolinium is contraindicated if the GFR is below 30. (2) Abdominal aortic aneurysm dissection Plan: Management per vascular surgery. (3) Oliguria Plan: Resolved (4) HTN (hypertension) Plan: Defer management to vascular surgery for the present time. Noted patient is being started on the short acting calcium channel irasema Clevidipine. Also on hydralazine the beta irasema. Dionisio Oden MD Jan 14, 2017 16:51
[2017-01-14] MEDS: ATORVASTATIN 40 MG TAB PO SCH (20:15)
[2017-01-14] MEDS: ENOXAPARIN SODIUM 30 MG/0.3 ML SYRINGE SQ SCH (20:15)
[2017-01-15] VITALS (9 sets, daily range): BP systolic 105–145; BP diastolic 56–76; PULSE 80–96; RESP 16–20; TEMP 97.7–98.4; O2SAT 87–94
[2017-01-15] MEDS: LABETALOL HCL 300 MG TAB PO SCH ×5 (00:03→23:12)
[2017-01-15] MEDS: NIFEdipine 10 MG CAP PO SCH ×5 (00:03→23:12)
[2017-01-15] MEDS: POTASSIUM CHLOR 20 MEQ PREMIX 100 ML IV PRN ×4 (00:08→06:00)
[2017-01-15] MEDS: RESP: ALBUTEROL 2.5 MG/IPRATROPIUM 0.5 MG NEB (SCH) NEB ×6 (00:26→21:03)
--- NOTE | 2017-01-15 05:17 | RADRPT ---
EXAM DATE/TIME: 01/15/2017 04:21 [facility] COMPARISON: ABDOMEN KUB ONLY, January 14, 2017, 15:05. INDICATIONS : Abdominal distention. MEDICAL HISTORY : Hypertension. SURGICAL HISTORY : Coronary artery stent. ENCOUNTER: Subsequent ACUITY: 1 week PAIN SCORE: 5/10 LOCATION: Bilateral abdomen FINDINGS: A single portable supine view of the abdomen shows no interval change. Gas-distention of the colon is noted. There is a rectal tube observed with the tip at the mid descending level. That portion of the colon is decompressed. There is coiling of the rectal tube within the rectal vault. No dilated loops of small bowel observed. Scoliotic and degenerative spine. CONCLUSION: 1. Rectal tube. There are multiple loops of the rectal tube within the rectal vault. 2. Unchanged appearance to the gaseous distention of the colon. Isaac Steiner Jr., MD on January 15, 2017 at 5:14 Board Certified Radiologist. This report was verified electronically.
[2017-01-15] MEDS: METOCLOPRAMIDE HCL 10 MG/2 ML VIAL IV PUSH SCH ×3 (05:59→21:02)
[2017-01-15] MEDS: cloNIDine HCL 0.3 MG TAB PO SCH ×3 (06:00→21:01)
[2017-01-15] MEDS: PANTOPRAZOLE SOD 40 MG DELAYED RELEASE TAB PO SCH (08:44)
[2017-01-15] MEDS: ASPIRIN 81 MG CHEW TAB PO SCH (08:44)
[2017-01-15] MEDS: DOCUSATE SODIUM 50 MG/SENNA 8.6 MG TAB PO SCH ×2 (08:44→21:02)
[2017-01-15] MEDS: LACTULOSE SYRUP 20 GM/30 ML CUP PO SCH ×2 (08:44→21:02)
[2017-01-15] MEDS: POLYETHYLENE GLYCOL 17 GM PKG PO SCH ×2 (08:44→21:02)
[2017-01-15] MEDS: BISACODYL 10 MG SUPP RECTAL SCH (08:45)
[2017-01-15] MEDS: ACETYLCYSTEINE 20% 6,000 MG/30 ML ORAL SOLN VIAL PO SCH ×2 (08:59→21:07)
[2017-01-15 11:48] LABS: HEMATOCRIT 34.3 % (39.0-51.0); MEAN CELL VOLUME 87.9 FL (80.0-100.0); MEAN CORPUSCULAR HEMOGLOBIN 30.4 PG (27.0-34.0); MEAN CORPUSCULAR HGB CONC 34.6 % (32.0-36.0); PLATELET COUNT 190 TH/MM3 (150-450); RED CELL DISTRIBUTION WIDTH 13.5 % (11.6-17.2); REVIEW FLAG FINAL; WHITE BLOOD COUNT 13.5 TH/MM3 (4.0-11.0)
[2017-01-15 12:13] LABS: BICARBONATE 23.4 MEQ/L (21.0-32.0); POTASSIUM 3.8 MEQ/L (3.5-5.1)
--- NOTE | 2017-01-15 13:00 | HHI.GIFU ---
Subjective Remarks Up in chair. No nausea/vomiting, but worsening distention today. 50cc stool output from rectal tube since yesterday. Worsening discomfort (Latrice Welch) Objective Vitals I&O Vital Signs Date Time Temp Pulse Resp B/P Pulse Ox O2 Delivery O2 Flow Rate FiO2 01/15/17 11:00 92 Nasal Cannula 6.00 01/15/17 11:00 98.3 81 18 128/69 92 01/15/17 11:00 81 01/15/17 08:00 90 Nasal Cannula 6.00 01/15/17 07:57 90 Nasal Cannula 6.00 01/15/17 07:30 87 High Flow Nasal Cannula 35.00 55 01/15/17 07:00 80 01/15/17 07:00 98.3 84 18 105/56 88 01/15/17 07:00 88 Nasal Cannula 01/15/17 04:00 80 01/15/17 04:00 94 Nasal Cannula 01/15/17 04:00 80 16 124/60 94 01/15/17 00:00 97.7 82 16 130/65 94 01/15/17 00:00 82 01/15/17 00:00 94 Nasal Cannula 01/14/17 22:00 89 Nasal Cannula 01/14/17 21:35 91 High Flow Nasal Cannula 35.00 55 01/14/17 21:00 90 Nasal Cannula 01/14/17 20:00 87 Nasal Cannula 6.00 01/14/17 20:00 82 01/14/17 20:00 97.9 82 18 120/64 87 01/14/17 16:00 89 Nasal Cannula 6.00 01/14/17 15:11 90 Nasal Cannula 6.00 01/14/17 15:10 83 01/14/17 15:10 98.2 83 18 125/64 92 I/O 01/14/17 01/14/17 01/14/17 01/15/17 01/15/17 01/15/17 07:00 15:00 23:00 07:00 15:00 23:00 Intake Total 480 ml 1080 ml 567 ml Output Total 1300 ml 1070 ml 750 ml Balance -820 ml 10 ml -183 ml Intake Oral 480 ml 960 ml 360 ml IV Total 120 ml 207 ml Output Urine Total 1250 ml 1060 ml 700 ml Stool Total 50 ml 10 ml 50 ml Laboratory Laboratory Tests Test 01/14/17 01/15/17 23:25 11:30 Potassium Level 3.2 3.8 White Blood Count 13.5 Red Blood Count 3.90 Hemoglobin 11.9 Hematocrit 34.3 Mean Corpuscular Volume 87.9 Mean Corpuscular Hemoglobin 30.4 Mean Corpuscular Hemoglobin 34.6 Concent Red Cell Distribution Width 13.5 Platelet Count 190 Mean Platelet Volume 9.5 Sodium Level 137 Chloride Level 102 Carbon Dioxide Level 23.4 Anion Gap 12 Blood Urea Nitrogen 61 Creatinine 1.76 Estimat Glomerular Filtration 37 Rate Random Glucose 110 Calcium Level 8.5 Imaging Last Impressions Abdomen X-Ray 01/15/17 0600 Signed Impressions: Service Date/Time: January 04:21 - CONCLUSION: 1. Rectal tube. There are multiple loops of the rectal tube within the rectal vault. 2. Unchanged appearance to the gaseous distention of the colon. Isaac Steiner Jr., MD Chest CT 01/13/17 0000 Signed Impressions: Service Date/Time: Friday, January 13, 2017 09:55 - CONCLUSION: Bilateral pleural effusions, compressive atelectasis and patchy areas of alveolar infiltrate. Farooq Ragland MD Abdomen/Pelvis CT 01/13/17 0000 Signed Impressions: Service Date/Time: Friday, January 13, 2017 09:55 - CONCLUSION: Dilated colon with appearance suggestive of adynamic ileus. Farooq Ragland MD Chest X-Ray 01/12/17 0000 Signed Impressions: Service Date/Time: Thursday, January 12, 2017 08:04 - CONCLUSION: 1. Bibasilar fusions in diffuse parenchymal opacification suggesting congestive failure. This appears mildly worsened when compared to previous dated 01/11/17. Mitch Lopez MD Renal Ultrasound 01/08/17 0000 Signed Impressions: Service Date/Time: December 08:52 - CONCLUSION: Kidneys within normal limits. Renal arteries patent. Alex Velasco MD Aorta CTA 01/07/17 1453 Signed Impressions: Service Date/Time: Saturday, January 07, 2017 15:41 - CONCLUSION: Dissection as described above. The right renal artery is predominantly in the false lumen. Mesenteric arteries are in the true lumen. This does not extend over the arch. Andrew Lopez MD FACR Physical Exam HEENT: Normocephalic; atraumatic; no jaundice. CHEST: CTA CARDIAC: RRR ABDOMEN: Distended, tympanic, moderate diffuse tenderness, no hepatosplenomegaly; bowel sounds are hypoactiv EXTREMITIES: No clubbing, cyanosis, or edema. SKIN: Normal; no rash; no jaundice. SUPPORT ARCHITECT: No focal deficits; alert and oriented times three. (Latrice Welch [facility]) Assessment and Plan Plan ASSESSMENT: - Severe colonic ileus with cecal dilation to 12 cm. No response to Dulcolax suppository, Miralax 17gram po BID, Lactulose 30mL po BID, Pericolace i tab po BID, Magnesium citrate, Reglan x 1, Neostigmine. CT scan abdomen and pelvis without IV contrast (01/13/17)---> dilated colon with appearance of adynamic ileus. Neostigmine was given to the patient earlier today and he has not yet had a bowel movement. S/P Relistor 12mg sq x 1 (01/13). S/P decompressive colonoscopy (01/13/17)---> fecal impaction, dilated bowel, rectal tube placement. Rectal tube to LIWS. He had 300cc of liquid stool yesterday, but only 50cc since that time. Rpt. Imaging Abdomen X-Ray (01/15/17)---> 1. Rectal tube. There are multiple loops of the rectal tube within the rectal vault. 2. Unchanged appearance to the gaseous distention of the colon. Clinically, he has worsening distention/discomfort today. Only 50cc of stool. Will order Gastrografin enema. Cont. Reglan. He is on Magox. - Type B Aortic Dissection. CVT following, tight blood pressure control. - Respiratory failure, improved. Now on N/C. - BRYCE. Renal following. - Hyperlipidemia, HTN per primary. PLAN: - Full liquids - Gastrografin enema today - Cont. Reglan - Cont. bowel regimen- dulcolax, miralax, lactulose, pericolace - OOB to chair - KUB in am - S/P Relistor 01/13 (not on pain meds) - S/P Decompressive colonoscopy - Supportive care - Further recommendations to follow based on results of above - Pt seen and examined by Dr. Contreras and myself and this note is written on his behalf (Latrice Welch) Physician Comments Seen and examined with ALTON, gastrografin enema done earlier today with some improvement. Abdomen still fairly distended. Passing stools and flatus. Repeat x rays in am. (Raul Contreras MD) Latrice Welch Jan 15, 2017 13:00 Raul Contreras MD Jan 15, 2017 19:12
--- NOTE | 2017-01-15 13:33 | PD.VS.PN ---
Subjective Subjective/Hospital Course Pt sitting in chair this am alert and in NAD, reported he ambulated the hallway Abdomen Distended with slight improvement since yesterday (Lisa Moser) Objective Vitals/I&O Date Time Temp Pulse Resp B/P Pulse Ox O2 Delivery O2 Flow Rate FiO2 01/15/17 11:00 92 Nasal Cannula 6.00 01/15/17 11:00 98.3 81 18 128/69 92 01/15/17 11:00 81 01/15/17 08:00 90 Nasal Cannula 6.00 01/15/17 07:57 90 Nasal Cannula 6.00 01/15/17 07:30 87 High Flow Nasal Cannula 35.00 55 01/15/17 07:00 80 01/15/17 07:00 98.3 84 18 105/56 88 01/15/17 07:00 88 Nasal Cannula 01/15/17 04:00 80 01/15/17 04:00 94 Nasal Cannula 01/15/17 04:00 80 16 124/60 94 01/15/17 00:00 97.7 82 16 130/65 94 01/15/17 00:00 82 01/15/17 00:00 94 Nasal Cannula 01/14/17 22:00 89 Nasal Cannula 01/14/17 21:35 91 High Flow Nasal Cannula 35.00 55 01/14/17 21:00 90 Nasal Cannula 01/14/17 20:00 87 Nasal Cannula 6.00 01/14/17 20:00 82 01/14/17 20:00 97.9 82 18 120/64 87 01/14/17 16:00 89 Nasal Cannula 6.00 01/14/17 15:11 90 Nasal Cannula 6.00 01/14/17 15:10 83 01/14/17 15:10 98.2 83 18 125/64 92 01/15/17 01/15/17 01/15/17 07:00 15:00 23:00 Intake Total 567 ml Output Total 750 ml Balance -183 ml Physical Exam GENERAL: A&OX3, NAD, pleasant 81/M SKIN: Warm and dry. NECK: Supple,No JVD CARDIOVASCULAR: +S1,S2 RESPIRATORY: Breath sounds equal and clear bilaterally. GASTROINTESTINAL: Abdomen distended and tender (Right mid region) MUSCULOSKELETAL: No cyanosis, or edema. (Lisa Moser) Laboratory Laboratory Tests Test 01/14/17 01/15/17 23:25 11:30 Potassium Level 3.2 3.8 White Blood Count 13.5 Red Blood Count 3.90 Hemoglobin 11.9 Hematocrit 34.3 Mean Corpuscular Volume 87.9 Mean Corpuscular Hemoglobin 30.4 Mean Corpuscular Hemoglobin 34.6 Concent Red Cell Distribution Width 13.5 Platelet Count 190 Mean Platelet Volume 9.5 Sodium Level 137 Chloride Level 102 Carbon Dioxide Level 23.4 Anion Gap 12 Blood Urea Nitrogen 61 Creatinine 1.76 Estimat Glomerular Filtration 37 Rate Random Glucose 110 Calcium Level 8.5 Imaging Last 48 hours Impressions Abdomen X-Ray 01/15/17 0600 Signed Impressions: Service Date/Time: January 04:21 - CONCLUSION: 1. Rectal tube. There are multiple loops of the rectal tube within the rectal vault. 2. Unchanged appearance to the gaseous distention of the colon. Isaac Steiner Jr., MD Abdomen X-Ray 01/14/17 0000 Signed Impressions: Service Date/Time: Saturday, January 14, 2017 15:05 - CONCLUSION: 1. Interval insertion of a rectal tube with decompression of the descending colon. 2. There is still air distention of the more proximal colon, however. No pneumoperitoneum. Tam Ledesma MD (Lisa Moser) Assessment and Plan Plan acute TBAD, new ileus Continue BP control with goal SBP 130 - beta blockade Continue OOB TC and ambulate ad jonna Will continue to monitor Lisa DANG [facility] [id number] (Lisa Moser) Plan Patient has had progression from to nasal cannula with some improvement in deep breathing. On bedside toilet presently with flatus and liquid stool. Once resp status improves transfer to [facility]. Zaid Cai DO, FACS [employer] Manager of Vascular Surgery /[place] (Zaid Cai DO) Lisa Moser Jan 15, 2017 13:33 Zaid Cai DO Jan 15, 2017 16:19
[2017-01-15] MEDS ORDERED: DIATRIZOATE MEGLUM/DIATRIZOATE SOD 120 ML BTL (for RAD DIAG) RECTAL ONE (15:11)
--- NOTE | 2017-01-15 15:33 | MR ---
cc: KYLE LARA M.D. DATE: 01/13/2017 DATE OF : 1935 PROCEDURE Colonoscopy with colon decompression and placement of decompression tube. INDICATION 81-year-old gentleman who has a dynamic ileus with distended cecum. PROCEDURE After informing the patient of procedure and complication consent was signed. The patient was placed on his left lateral decubitus sedation was achieved by propofol. Rectal exam was performed scope was placed in the rectum, advanced under video guidance to the cecum which was identified by the ileocecal valve there was significant stool throughout the colon and ascending colon and cecum look distended. Suctioning of the air was done and placement of decompression tube was done at the end of the case that the patient is abdomen was softer. FINDINGS 1. Finding consistent with constipation and ileus. 2. Decompression tube was placed. 3. Okay to have clear liquids. 4. Tube to low intermittent wall suction. MD SUHAIL Hawthorne/freddie /3:36 PM /3:26 PM
--- NOTE | 2017-01-15 16:36 | RADRPT ---
EXAM DATE/TIME: 01/15/2017 14:35 [facility] COMPARISON: No previous studies available for comparison. INDICATIONS : Abdominal distention and pain. Constipation for 1 week. FLUORO TIME: 2.8 minutes IMAGE COUNT: CONTRAST: 1. Gastroview MEDICAL HISTORY : Hypertension. SURGICAL HISTORY : Coronary artery stent. ENCOUNTER: Subsequent ACUITY: 1 week PAIN SCORE: 10/10 LOCATION: Abdomen, all quadrants. FINDINGS: Preliminary film demonstrates prominent amount gas in the right colon and transverse colon. Under fl uoroscopic observation, water-soluble contrast was instilled per rectum to the right colon. There is prompt flow through the sigmoid and left colon and there is delay of passage in the left lateral asp ect of the transverse colon. Several pieces of stool are observed and with gentle manual compression , or dislodged and then the contrast passed through to the right colon. No strictures or annular les ions seen. CONCLUSION: Therapeutic Gastrografin enema with delivery of water-soluble contrast to the right colon. There are scattered moderate sized particles of stool. Isaac Mesa MD on January 15, 2017 at 16:30 Board Certified Radiologist. This report was verified electronically.
--- NOTE | 2017-01-15 18:07 | HHI.NPPN ---
Subjective History of Present Illness This patient is an 81-year-old male. The patient has a history of hypertension, coronary artery disease with previous PTCA. 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 Right renal artery lumen is said to be in the false lumen on CTA with impaired perfusion right kidney. Left kidney said to be reasonably well perfused. Subsequent ultrasound however indicating patent bilateral renal arteries. Admission creatinine level I.4. Unfortunately I have no renal indices available prior to this presently. Creatinine level has deteriorated to a level of 2.63 day of consultation. Patient's presenting blood pressure was 226/101. It has been treated aggressively to reduce his systolic pressure below 120. Despite aggressive IV hydration with normal saline patient's urine output has been somewhat poor. On questioning the patient he is unaware of any previous CKD. He was using Aleve day of admission. Interval History Patient complaining of increasing abdominal distention. Status post Gastrografin enema. Review of Systems General Constitutional: Fatigue Gastrointestinal Gastrointestinal: Nausea & Vomiting Objective Data Data 01/14/17 01/15/17 19:00 07:00 Intake Total 1080 ml 567 ml Output Total 1070 ml 750 ml Balance 10 ml -183 ml Intake Oral 960 ml 360 ml IV Total 120 ml 207 ml Output Urine Total 1060 ml 700 ml Stool Total 10 ml 50 ml Vital Signs Date Time Temp Pulse Resp B/P Pulse Ox O2 Delivery O2 Flow Rate FiO2 01/15/17 15:00 89 01/15/17 15:00 98.4 89 20 132/76 91 01/15/17 15:00 91 Nasal Cannula 6.00 01/15/17 11:00 92 Nasal Cannula 6.00 01/15/17 11:00 98.3 81 18 128/69 92 01/15/17 11:00 81 01/15/17 08:00 90 Nasal Cannula 6.00 01/15/17 07:57 90 Nasal Cannula 6.00 01/15/17 07:30 87 High Flow Nasal Cannula 35.00 55 01/15/17 07:00 80 01/15/17 07:00 98.3 84 18 105/56 88 01/15/17 07:00 88 Nasal Cannula 01/15/17 04:00 80 01/15/17 04:00 94 Nasal Cannula 4/6/17 04:00 80 16 124/60 94 01/15/17 00:00 97.7 82 16 130/65 94 01/15/17 00:00 82 01/15/17 00:00 94 Nasal Cannula 01/14/17 22:00 89 Nasal Cannula 01/14/17 21:35 91 High Flow Nasal Cannula 35.00 55 01/14/17 21:00 90 Nasal Cannula 01/14/17 20:00 87 Nasal Cannula 6.00 01/14/17 20:00 82 01/14/17 20:00 97.9 82 18 120/64 87 -: 01/15/17 1130 01/15/17 1130 Physical Exam General Appearance: No Acute Distress, Comfortable Eyes Eye Exam: Sclera White Pulmonary Resp Exam: Clear Bilaterally, Breath Sounds Equal, No Distress Cardiology CV Exam: Regular, Normal Sinus Rhythm, Good Perfusion Gastrointestinal/Abdomen GI Exam: Soft, Non-Tender, Distended Integumentary Skin Exam: Clear, Warm, Normal Turgor Extremeties Extremities Exam: Trace Edema (ankles only.) Neurologic Neuro Exam: Alert, Awake Psychiatric Psych Exam: Appropriate Responses Assessment/Plan Discussed Condition With: Patient, Spouse Problem List: (1) Acute kidney insufficiency Plan: The patient creatinine level has deteriorated again. Most likely secondary to hemodynamic issues related to ileus. Patient not clinically dehydrated however and has some peripheral edema. If azotemia continues to worsen however with persisting abdominal distention I would be concerned for the possible development of an abdominal compartment syndrome. Hopefully the patient will decompress post enema. Medications should be adjusted for the patient's estimated GFR if clinically indicated. Avoid agents with significant potential for nephrotoxicity possible including NSAIDs for analgesia, . Would also avoid MORENA inhibitor and angiotensin receptor blockers at this time.. Gadolinium is contraindicated if the GFR is below 30. (2) Abdominal aortic aneurysm dissection Plan: Management per vascular surgery. (3) Oliguria Plan: Resolved (4) HTN (hypertension) Plan: Defer management to vascular surgery for the present time. Noted patient is being started on the short acting calcium channel irasema Clevidipine. Also on hydralazine the beta irasema. Dionisio Oden MD Jan 15, 2017 18:07
--- NOTE | 2017-01-15 19:49 | HHI.CCPN ---
Subjective Remarks/Hospital Course 81 yo WM with past medical history of hypertension, hyperlipidemia, coronary artery disease with stents 2 placed 17 years ago who presented to [facility] after he developed the sudden onset of severe chest pain at 11:45 this morning. He states the pain feels like pressure in the epigastrium and left chest and radiates to the back. It was associated with diaphoresis. He states that he could not get comfortable and that nothing would relieve his severe pain so he was transported to the hospital by [facility]. Workup demonstrated troponin of 0.02. With EKG showing sinus bradycardia with first-degree AV block and no ST or T-wave abnormalities. 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 The mesenteric arteries or in the true lumen and the right renal artery is in the false lumen. His blood pressure upon presentation was 226/ 101. He was started on a nicardipine drip which is currently going at 15 mg per hour and blood pressure is 149/59. He is being started on a labetalol drip to target systolic blood pressure less than 110. He reports persistent pain in his epigastrium and left flank and complains of thirst. 12/29/16: BP improved control on Labetalol gtt. NPO now. Once cleared by vascular surgery, will start PO antihypertensives. Target less than 110. Creat worsened from 1.4 to 2.4. Nephrology consulted 01/09: still on clevidipine. Cr plateaued at 2.7. uop adequate. no complaints. 01/10: still on clevidipine despite increasing anti-htn regimen. overnight became hypoxic requiring BiPAP. given bumex with good response and improvement in oxygenation. 01/11: tolerating regular diet. off clevidipine. on oral meds with good bp control. still on high flow NC. renal function improves, but still oliguric and not net negative fluid balance despite attempts at forced diuresis. patient states he feels good this morning. 01/12: doing well this morning. o2 requirement still very high, on high-flow 40LPM with 80% fio2. however, not dyspneic. not complaining of SOB. tolerated breakfast. good diuresis yesterday. 01/13: still high fio2 requirements. abdomen very distended this morning. 2 episodes of emesis overnight. KUB with colonic ileus. good diuresis again yesterday. 01/14: fio2 requirements decreasing. down to 50% from 100%. decompressive colonoscopy yesterday with placement of rectal tube. Cr downtrending with + fluid balance yesterday. 01/15: down to nasal canula today, still at 6 LPM. still poor bowel function despite rectal tube. GI following. Objective Vital Signs Date Time Temp Pulse Resp B/P Pulse Ox O2 Delivery O2 Flow Rate FiO2 01/15/17 15:00 89 01/15/17 15:00 98.4 20 132/76 91 01/15/17 15:00 Nasal Cannula 6.00 01/15/17 07:30 55 Intake and Output 01/14/17 01/14/17 01/15/17 08:00 16:00 00:00 Intake Total 480 ml 1080 ml Output Total 1300 ml 1070 ml Balance -820 ml 10 ml Result Diagram: 01/15/17 1130 01/15/17 1130 Objective Remarks GENERAL: elderly male, sitting in a chair SKIN: Warm and dry, well perfused HEAD: Atraumatic. Normocephalic. EYES: Pupils equal and round. No scleral icterus. No injection or drainage. ENT: No nasal bleeding or discharge. Mucous membranes pink and moist. NECK: Trachea midline. no jvd today. CARDIOVASCULAR: Regular rate and rhythm. No murmurs. RESPIRATORY: No accessory muscle use. 6L NC. can pull 750cc on his I.S. GASTROINTESTINAL: Abdomen tympanic, more distended than yesterday. No tenderness to palpation. No guarding. MUSCULOSKELETAL/VASC: Extremities without clubbing, cyanosis. no edema of LEs today. DPs and posterior tibial artery pulses are palpable bilaterally. Feet are warm and well perfused. NEUROLOGICAL: Awake and alert, RASS 0. A/P Assessment and Plan Assessment: 81yM with acute type B dissection complicated by hypertensive emergency and acute kidney injury. his BRYCE is stable. Ileus improved. fio2 requirements improving. still needs aggressive pulmonary toilet. NEURO: Pain secondary to aortic dissection Oxycodone 5 mg by mouth every 4 hours when necessary pain. Morphine 2 mg IV every hours when necessary breakthrough pain. RESP: Acute Hypoxic Respiratory failure high flow nasal cannula. IS every hour awake. wean o2 as tolerated. ambulate. aggressive pulm toilet. OOB to chair. PT consult. 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 Oral anti-htn regimen: labetalol 300mg po q6h nifedipine 30mg q6h. labetalol/hydralazine iv. Aspirin 81 mg daily Lipitor 40 mg daily at bedtime GI: Manuel's syndrome Severe Colonic Ileus Severe Constipation - tolerating heart healthy diet. - GI following. may need second decompressive sigmoidoscopy at some point. continue aggressive bowel regimen. FEN/RENAL: Acute kidney injury- resolving. -with unknown baseline creatinine. -continue morales catheter. -hold on further diuresis today. hold ivf for now. will closely watch volume status. - icu electrolyte protocol. - nephrology following. ID: Monitor for signs and symptoms of infection HEME: No acute hematologic issues ENDO: Euglycemic PROPH: Protonix 40 mg by mouth daily for stress ulcer prophylaxis. Lovenox 30 mg subcutaneous every 24 hours for DVT prophylaxis ACCESS: -piv. Dispo: remain in ICU. could likely transfer to the floor tonight or tomorrow. Jake Durand MD Jan 15, 2017 19:49
[2017-01-15] MEDS: ATORVASTATIN 40 MG TAB PO SCH (21:02)
[2017-01-15] MEDS: ENOXAPARIN SODIUM 30 MG/0.3 ML SYRINGE SQ SCH (21:02)
[2017-01-16] VITALS (17 sets, daily range): BP systolic 73–140; BP diastolic 44–76; PULSE 85–91; RESP 12–22; TEMP 97.3–98; O2SAT 78–92
[2017-01-16] MEDS: RESP: ALBUTEROL 2.5 MG/IPRATROPIUM 0.5 MG NEB (SCH) NEB ×3 (00:50→08:13)
[2017-01-16] MEDS: LABETALOL HCL 100 MG/20 ML VIAL IV PUSH PRN (03:20)
[2017-01-16] MEDS: ONDANSETRON HCL 4 MG/2 ML VIAL IV PUSH PRN (04:00)
[2017-01-16 05:14] LABS: MEAN CORPUSCULAR HEMOGLOBIN 30.1 PG (27.0-34.0); MEAN CORPUSCULAR HGB CONC 34.3 % (32.0-36.0); PLATELET COUNT 208 TH/MM3 (150-450); RED BLOOD COUNT 3.98 MIL/MM3 (4.50-5.90); RED CELL DISTRIBUTION WIDTH 13.3 % (11.6-17.2); REVIEW FLAG FINAL; WHITE BLOOD COUNT 11.9 TH/MM3 (4.0-11.0)
--- NOTE | 2017-01-16 05:28 | RADRPT ---
EXAM DATE/TIME: 01/16/2017 04:34 [facility] COMPARISON: GASTROGRAFIN ENEMA, January 15, 2017, 14:35. INDICATIONS : Evaluate for ileus. MEDICAL HISTORY : None. SURGICAL HISTORY : None. ENCOUNTER: Subsequent ACUITY: 1 week PAIN SCORE: Non-responsive. LOCATION: Abdomen FINDINGS: Gastrografin is present in the patient's colon from Gastrografin enema which was done yesterday and t he cecum measures 14.6 cm in size. There is mild dilatation of some of the loops of small bowel. CONCLUSION: Distended cecum and mild dilatation of some of the loops of small bowel and a very limited exam. Clay Ferrara MD on January 16, 2017 at 5:26 Board Certified Radiologist. This report was verified electronically.
[2017-01-16] MEDS: NIFEdipine 10 MG CAP PO SCH ×3 (05:38→18:00)
[2017-01-16] MEDS: METOCLOPRAMIDE HCL 10 MG/2 ML VIAL IV PUSH SCH ×3 (05:38→22:00)
[2017-01-16] MEDS: cloNIDine HCL 0.3 MG TAB PO SCH ×3 (05:38→22:00)
[2017-01-16] MEDS: LABETALOL HCL 300 MG TAB PO SCH ×3 (05:38→18:00)
[2017-01-16 05:40] LABS: BICARBONATE 24.5 MEQ/L (21.0-32.0); POTASSIUM 3.7 MEQ/L (3.5-5.1)
[2017-01-16] MEDS ORDERED: DEXT 5%-NACL 0.45% 1000 ML INJ 1,000 ML IV SCH (07:30)
--- NOTE | 2017-01-16 08:24 | PD.VS.PN ---
Subjective Subjective/Hospital Course Pt with Manuel's that is refractory C/o abdominal distension today and slight abdominal pain R>L + BM Objective Vitals/I&O Date Time Temp Pulse Resp B/P Pulse Ox O2 Delivery O2 Flow Rate FiO2 01/16/17 08:15 91 Nasal Cannula 6.00 01/16/17 07:00 90 Nasal Cannula 6.00 01/16/17 07:00 97.3 86 18 119/63 90 01/16/17 04:42 91 Nasal Cannula 6.00 01/16/17 04:00 130/76 01/16/17 03:00 91 Nasal Cannula 6.00 01/16/17 03:00 90 01/16/17 03:00 98.0 91 12 140/72 91 01/16/17 01:00 135/69 01/15/17 23:00 90 01/15/17 23:00 97.9 87 16 145/72 93 01/15/17 23:00 93 Nasal Cannula 6.00 01/15/17 21:03 Nasal Cannula 4.00 01/15/17 21:00 89 Nasal Cannula 6.00 01/15/17 20:00 89 Nasal Cannula 4.00 01/15/17 19:00 97.8 96 18 133/69 90 01/15/17 19:00 90 Nasal Cannula 3.00 01/15/17 19:00 88 01/15/17 15:00 89 01/15/17 15:00 98.4 89 20 132/76 91 01/15/17 15:00 91 Nasal Cannula 6.00 01/15/17 11:00 92 Nasal Cannula 6.00 01/15/17 11:00 98.3 81 18 128/69 92 01/15/17 11:00 81 01/16/17 01/16/17 01/16/17 07:00 15:00 23:00 Intake Total 1080 ml Output Total 930 ml Balance 150 ml Physical Exam Abdomen distended , mild TTP R side Laboratory Laboratory Tests Test 01/15/17 01/16/17 11:30 04:11 White Blood Count 13.5 11.9 Red Blood Count 3.90 3.98 Hemoglobin 11.9 12.0 Hematocrit 34.3 35.0 Mean Corpuscular Volume 87.9 88.0 Mean Corpuscular Hemoglobin 30.4 30.1 Mean Corpuscular Hemoglobin 34.6 34.3 Concent Red Cell Distribution Width 13.5 13.3 Platelet Count 190 208 Mean Platelet Volume 9.5 10.0 Sodium Level 137 138 Potassium Level 3.8 3.7 Chloride Level 102 101 Carbon Dioxide Level 23.4 24.5 Anion Gap 12 13 Blood Urea Nitrogen 61 73 Creatinine 1.76 1.76 Estimat Glomerular Filtration 37 37 Rate Random Glucose 110 128 Calcium Level 8.5 8.6 Imaging Last 48 hours Impressions Abdomen X-Ray 01/16/17 06 Signed Impressions: Service Date/Time: Monday, January 16, 2017 04:34 - CONCLUSION: Distended cecum and mild dilatation of some of the loops of small bowel and a very limited exam. Clay Ferrara MD Abdomen X-Ray 01/15/17599 Signed Impressions: Service Date/Time: January 04:21 - CONCLUSION: 1. Rectal tube. There are multiple loops of the rectal tube within the rectal vault. 2. Unchanged appearance to the gaseous distention of the colon. Isaac Steiner Jr., MD Enema w/Water Soluble 01/15/17 0000 Signed Impressions: Service Date/Time: January 14:35 - CONCLUSION: Therapeutic Gastrografin enema with delivery of water-soluble contrast to the right colon. There are scattered moderate sized particles of stool. Isaac Mesa MD Assessment and Plan Plan From a vascular surgery standpoint, he looks good, Mild renal insufficiency. His primary issue is Byron's and I think he needs colonoscopic decompression again and aggressive GI management. NPO MIVF Antwon Scruggs MD Jan 16, 2017 08:24
[2017-01-16] MEDS: LACTULOSE SYRUP 20 GM/30 ML CUP PO SCH ×2 (08:32→21:00)
[2017-01-16] MEDS: POLYETHYLENE GLYCOL 17 GM PKG PO SCH ×2 (08:32→21:00)
[2017-01-16] MEDS: ASPIRIN 81 MG CHEW TAB PO SCH (08:32)
[2017-01-16] MEDS: DOCUSATE SODIUM 50 MG/SENNA 8.6 MG TAB PO SCH ×2 (08:32→21:00)
[2017-01-16] MEDS: PANTOPRAZOLE SOD 40 MG DELAYED RELEASE TAB PO SCH (08:33)
[2017-01-16] MEDS: ACETYLCYSTEINE 20% 6,000 MG/30 ML ORAL SOLN VIAL PO SCH ×2 (08:33→21:00)
[2017-01-16] MEDS: BISACODYL 10 MG SUPP RECTAL SCH (08:33)
--- NOTE | 2017-01-16 14:09 | HHI.CCPN ---
Subjective Remarks/Hospital Course 81 yo WM with past medical history of hypertension, hyperlipidemia, coronary artery disease with stents 2 placed 17 years ago who presented to [facility] after he developed the sudden onset of severe chest pain at 11:45 this morning. He states the pain feels like pressure in the epigastrium and left chest and radiates to the back. It was associated with diaphoresis. He states that he could not get comfortable and that nothing would relieve his severe pain so he was transported to the hospital by [facility]. Workup demonstrated troponin of 0.02. With EKG showing sinus bradycardia with first-degree AV block and no ST or T-wave abnormalities. 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 The mesenteric arteries or in the true lumen and the right renal artery is in the false lumen. His blood pressure upon presentation was 226/ 101. He was started on a nicardipine drip which is currently going at 15 mg per hour and blood pressure is 149/59. He is being started on a labetalol drip to target systolic blood pressure less than 110. He reports persistent pain in his epigastrium and left flank and complains of thirst. 12/29/16: BP improved control on Labetalol gtt. NPO now. Once cleared by vascular surgery, will start PO antihypertensives. Target less than 110. Creat worsened from 1.4 to 2.4. Nephrology consulted 01/09: still on clevidipine. Cr plateaued at 2.7. uop adequate. no complaints. 01/10: still on clevidipine despite increasing anti-htn regimen. overnight became hypoxic requiring BiPAP. given bumex with good response and improvement in oxygenation. 01/11: tolerating regular diet. off clevidipine. on oral meds with good bp control. still on high flow NC. renal function improves, but still oliguric and not net negative fluid balance despite attempts at forced diuresis. patient states he feels good this morning. 01/12: doing well this morning. o2 requirement still very high, on high-flow 40LPM with 80% fio2. however, not dyspneic. not complaining of SOB. tolerated breakfast. good diuresis yesterday. 01/13: still high fio2 requirements. abdomen very distended this morning. 2 episodes of emesis overnight. KUB with colonic ileus. good diuresis again yesterday. 01/14: fio2 requirements decreasing. down to 50% from 100%. decompressive colonoscopy yesterday with placement of rectal tube. Cr downtrending with + fluid balance yesterday. 01/15: down to nasal canula today, still at 6 LPM. still poor bowel function despite rectal tube. GI following. 01/16: KUB shows significant cecal distention, 14.6 CM. patient is in moderate distress due to abd distension. D/W Gi planning for repeat decompressive colonoscopy today Objective Vital Signs Date Time Temp Pulse Resp B/P Pulse Ox O2 Delivery O2 Flow Rate FiO2 01/16/17 11:00 87 01/16/17 11:00 97.7 20 133/70 91 01/16/17 11:00 Nasal Cannula 6.00 01/15/17 07:30 55 Intake and Output 01/15/17 01/15/17 01/16/17 08:00 16:00 00:00 Intake Total 567 ml 1800 ml Output Total 750 ml 740 ml Balance -183 ml 1060 ml Result Diagram: 01/16/17 0411 01/16/17 041 Objective Remarks GENERAL: elderly male, lying in bed. Moderate distress due to abdominal distention SKIN: Warm and dry, well perfused HEAD: Atraumatic. Normocephalic. EYES: Pupils equal and round. No scleral icterus. No injection or drainage. ENT: No nasal bleeding or discharge. Mucous membranes pink and moist. NECK: Trachea midline. no jvd today. CARDIOVASCULAR: Regular rate and rhythm. No murmurs. RESPIRATORY: No accessory muscle use. 6L NC. can pull 750cc on his I.S. GASTROINTESTINAL: Abdomen tympanic, distended. No tenderness to palpation. No guarding. MUSCULOSKELETAL/VASC: Extremities without clubbing, cyanosis. no edema of LEs today. DPs and posterior tibial artery pulses are palpable bilaterally. Feet are warm and well perfused. NEUROLOGICAL: Awake and alert, no focal deficits A/P Assessment and Plan Assessment: 81yM with acute type B dissection complicated by hypertensive emergency and acute kidney injury. his BRYCE is stable. Ileus persists, now with cecal dilatation on 14.6. NEURO: Pain secondary to aortic dissection Oxycodone 5 mg by mouth every 4 hours when necessary pain. Morphine 2 mg IV every hours when necessary breakthrough pain. Minimize opiates due to ileus RESP: Acute Hypoxic Respiratory failure high flow nasal cannula. IS every hour awake. wean o2 as tolerated. aggressive pulm toilet. OOB to chair, once Manuel's improves. PT consulted. 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 Oral anti-htn regimen: labetalol 300mg po q6h nifedipine 30mg q6h. labetalol/hydralazine iv. Aspirin 81 mg daily Lipitor 40 mg daily at bedtime GI: Canon's syndrome Severe Colonic Ileus Severe Constipation - Keep NPO - GI following. Plan for second decompressive sigmoidoscopy today. continue aggressive bowel regimen. - KUB today with 14.6 cm dilatation of cecum. Patient had BM today which was liquid brown FEN/RENAL: Acute kidney injury -with unknown baseline creatinine. -continue morales catheter. -hold on further diuresis today. hold ivf for now. will closely watch volume status. - icu electrolyte protocol. - nephrology following. ID: Monitor for signs and symptoms of infection HEME: No acute hematologic issues ENDO: Euglycemic PROPH: Protonix 40 mg by mouth daily for stress ulcer prophylaxis. Lovenox 30 mg subcutaneous every 24 hours for DVT prophylaxis ACCESS: -piv. Dispo: Continue ICU care de to severe cecal dilatation (14.6 cm) and potential for complications CCT 32 min Elena Trivedi MD Jan 16, 2017 14:09
--- NOTE | 2017-01-16 14:23 | HHI.GIFU ---
Subjective Remarks Resting in bed. Had an episode of nausea/vomiting earlier today. None recently. Frequent belching. Nurse reports that he did have about 200cc liquid stool early this am. Still with significant distention. (Latrice Welch) Objective Vitals I&O Vital Signs Date Time Temp Pulse Resp B/P Pulse Ox O2 Delivery O2 Flow Rate FiO2 01/16/17 11:00 87 01/16/17 11:00 97.7 86 20 133/70 91 01/16/17 11:00 91 Nasal Cannula 6.00 01/16/17 08:15 91 Nasal Cannula 6.00 01/16/17 07:00 90 Nasal Cannula 6.00 01/16/17 07:00 85 01/16/17 07:00 97.3 86 18 119/63 90 01/16/17 04:42 91 Nasal Cannula 6.00 01/16/17 04:00 130/76 01/16/17 03:00 91 Nasal Cannula 6.00 01/16/17 03:00 90 01/16/17 03:00 98.0 91 12 140/72 91 01/16/17 01:00 135/69 01/15/17 23:00 90 01/15/17 23:00 97.9 87 16 145/72 93 01/15/17 23:00 93 Nasal Cannula 6.00 01/15/17 21:03 Nasal Cannula 4.00 01/15/17 21:00 89 Nasal Cannula 6.00 01/15/17 20:00 89 Nasal Cannula 4.00 01/15/17 19:00 97.8 96 18 133/69 90 01/15/17 19:00 90 Nasal Cannula 3.00 01/15/17 19:00 88 01/15/17 15:00 89 01/15/17 15:00 98.4 89 20 132/76 91 01/15/17 15:00 91 Nasal Cannula 6.00 I/O 01/15/17 01/15/17 01/15/17 01/16/17 01/16/17 01/16/17 07:00 15:00 23:00 07:00 15:00 23:00 Intake Total 567 ml 1800 ml 1080 ml Output Total 750 ml 740 ml 930 ml Balance -183 ml 1060 ml 150 ml Intake Oral 360 ml 1800 ml 1080 ml IV Total 207 ml Output Urine Total 700 ml 690 ml 800 ml Stool Total 50 ml 50 ml 100 ml Emesis 30 ml Laboratory Laboratory Tests Test 01/16/17 04:11 White Blood Count 11.9 Red Blood Count 3.98 Hemoglobin 12.0 Hematocrit 35.0 Mean Corpuscular Volume 88.0 Mean Corpuscular Hemoglobin 30.1 Mean Corpuscular Hemoglobin 34.3 Concent Red Cell Distribution Width 13.3 Platelet Count 208 Mean Platelet Volume 10.0 Sodium Level 138 Potassium Level 3.7 Chloride Level 101 Carbon Dioxide Level 24.5 Anion Gap 13 Blood Urea Nitrogen 73 Creatinine 1.76 Estimat Glomerular Filtration 37 Rate Random Glucose 128 Calcium Level 8.6 Imaging Last Impressions Abdomen X-Ray 01/16/17 0600 Signed Impressions: Service Date/Time: Monday, January 16, 2017 04:34 - CONCLUSION: Distended cecum and mild dilatation of some of the loops of small bowel and a very limited exam. Clay Ferrara MD Enema w/Water Soluble 01/15/17 0000 Signed Impressions: Service Date/Time: January 14:35 - CONCLUSION: Therapeutic Gastrografin enema with delivery of water-soluble contrast to the right colon. There are scattered moderate sized particles of stool. Isaac Mesa MD Chest CT 01/13/17 0000 Signed Impressions: Service Date/Time: Friday, January 13, 2017 09:55 - CONCLUSION: Bilateral pleural effusions, compressive atelectasis and patchy areas of alveolar infiltrate. Farooq Ragland MD Abdomen/Pelvis CT 01/13/17 0000 Signed Impressions: Service Date/Time: Friday, January 13, 2017 09:55 - CONCLUSION: Dilated colon with appearance suggestive of adynamic ileus. Farooq Ragland MD Chest X-Ray 01/12/17 0000 Signed Impressions: Service Date/Time: Thursday, January 12, 2017 08:04 - CONCLUSION: 1. Bibasilar fusions in diffuse parenchymal opacification suggesting congestive failure. This appears mildly worsened when compared to previous dated 01/11/17. Mitch Lopez MD Renal Ultrasound 01/08/17 0000 Signed Impressions: Service Date/Time: December 08:52 - CONCLUSION: Kidneys within normal limits. Renal arteries patent. Alex Velasco MD Aorta CTA 01/07/17 1453 Signed Impressions: Service Date/Time: Saturday, January 07, 2017 15:41 - CONCLUSION: Dissection as described above. The right renal artery is predominantly in the false lumen. Mesenteric arteries are in the true lumen. This does not extend over the arch. Andrew Lopez MD FACR Physical Exam HEENT: Normocephalic; atraumatic; no jaundice. CHEST: CTA CARDIAC: RRR ABDOMEN: Distended, tympanic, moderate diffuse tenderness, no hepatosplenomegaly; bowel sounds are hypoactive EXTREMITIES: No clubbing, cyanosis, or edema. SKIN: Normal; no rash; no jaundice. MANAGER BEVERAGE: No focal deficits; alert and oriented times three. (Latrice Welch [facility]) Assessment and Plan Plan ASSESSMENT: - Severe colonic ileus with cecal dilation. No response to Dulcolax suppository , Miralax 17gram po BID, Lactulose 30mL po BID, Pericolace i tab po BID, Magnesium citrate, Reglan x 1, Neostigmine. CT scan abdomen and pelvis without IV contrast (01/13/17)---> dilated colon with appearance of adynamic ileus with cecum dilated to 11.2cm. S/P Neostigmine (01/13/17)- no response. Relistor (01/13) no response. S/P decompressive colonoscopy for cecum 11.2 (01/13/17)---> fecal impaction, dilated bowel, rectal tube placement. S/P Gastrografin Enema (01/15/17)----> Therapeutic gastrografin enema with delivery of water-soluble contrast to the right colon. There are scattered moderate sized particles of stool. The nurse reports that he passed about 200cc liquid stool early this am. Rpt. KUB (01/16/17)---> Distended cecum and mild dilatation of some of the loops of small bowel and a very limited exam- Cecum 14.6 cm in size. - Type B Aortic Dissection. CVT following, tight blood pressure control. - Respiratory failure, improved. Now on N/C. - BRYCE. Renal following. - Hyperlipidemia, HTN per primary. PLAN: - Plan for Decompressive Colonoscopy today - Obtain consents - NPO - Cont. Reglan - Cont. bowel regimen- dulcolax, miralax, lactulose, pericolace - OOB to chair - KUB in am - S/P Relistor 01/13 (not on pain meds) - S/P Neostigmine 01/13 (no response) - S/P Decompressive colonoscopy (01/13/17) - Supportive care - Further recommendations to follow based on results of above - Pt seen and examined by Dr. Contreras and myself and this note is written on his behalf (Latrice Welch) Physician Comments Seen and examined, aspirated earlier during decompression colonoscopy, currently on pressors and intubated. Antibiotics per Dr. Trivedi. Discussed with him. No family at bedside.Repeat kub in am. (Raul Contreras MD) Latrice Welch Jan 16, 2017 14:23 Raul Contreras MD Jan 16, 2017 19:02
[2017-01-16] MEDS ORDERED: PROPOFOL 200 MG/20 ML AMP IV ONE (14:51)
[2017-01-16] MEDS ORDERED: ETOMIDATE 20 MG/10 ML VIAL ONE (15:02)
--- NOTE | 2017-01-16 15:10 | GIPROC ---
[facility] [address] [facility]. [facility], [id number] COLONOSCOPY PROCEDURE REPORT EXAM DATE: 01/16/2017 PATIENT NAME: Ernst Durand MR #: [id number] BIRTHDATE: 1935 ENDOSCOPIST: Raul Contreras MD ORDER #: [id number] VAMP STRAP IRONER: Rohan Haider and Morgan Polo STATUS: inpatient INDICATIONS: The patient is a 81 yr old male here for a colonoscopy due to abdominal pain and abdominal distension PROCEDURE PERFORMED: Colonoscopy with decompression MEDICATIONS: None and Per Anesthesia. PREP QUALITY: The Franklin Bowel Prep Score was Right colon 1, Mid colon 1, and Left colon 2. Total = 4. ESTIMATED BLOOD LOSS: None CONSENT: The patient understands the risks and benefits of the procedure and understands that these risks include, but are not limited to: sedation, allergic reaction, infection, perforation and/or bleeding. Alternative means of evaluation and treatment include, among others: physical exam, x-rays, and/or surgical intervention. The patient elects to proceed with this endoscopic procedure. medical equipment was checked for proper function. Hand hygiene and appropriate measures for infection prevention was taken. After the risks, benefits and alternatives of the procedure were thoroughly explained, Informed consent was verified, confirmed and timeout was successfully executed by the treatment team. A digital exam revealed external hemorrhoids The Pentax [id number] endoscope was introduced through the anus and advanced to the cecum, which was identified by both the appendix and ileocecal valve. The instrument was then slowly withdrawn as the colon was fully examined. COLON FINDINGS: NG placed prior to procedure and placed on suctioning. Pt. palced on BIPAP prior to procedure.Diffusely dilated colon, Decompressed. Pt destaurated, and started throwing up ,scope withdrawn immediately. Pt intubated by DR. Trivedi and anesthesia. Retroflexed views revealed internal hemorrhoids and Retroflexed views revealed medium internal hemorrhoids The scope was then completely withdrawn from the patient and the procedure terminated. PROCEDURE WITHDRAWAL TIME:7minutes ADVERSE EVENTS: There were no complications. IMPRESSIONS: 1. NG placed prior to procedure and placed on suctioning. Pt. palced on BIPAP prior to procedure.Diffusely dilated colon, Decompressed. Pt destaurated, and started throwing up ,scope withdrawn immediately. Pt intubated by DR. Trivedi and anesthesia 2. Retroflexed views revealed internal hemorrhoids 3. Retroflexed views revealed medium internal hemorrhoids 4. Revealed external hemorrhoids RECOMMENDATIONS: KUB, CXR. antibiotics as needed per Dr. Trivedi RECALL: NONE Raul Contreras MD eSigned: Raul Contreras MD 01/16/2017 3:10 PM cc:
--- NOTE | 2017-01-16 15:11 | HHI.PR ---
Subjective Remarks Came to see patient on the floor. Patient in the middle of GI procedure. Creatinine stable from yesterday and urine output appears to be fair. I will see the patient tomorrow unless otherwise requested. Objective Vital Signs Date Time Temp Pulse Resp B/P Pulse Ox O2 Delivery O2 Flow Rate FiO2 01/16/17 11:00 87 01/16/17 11:00 97.7 86 20 133/70 91 01/16/17 11:00 91 Nasal Cannula 6.00 01/16/17 08:15 91 Nasal Cannula 6.00 01/16/17 07:00 90 Nasal Cannula 6.00 01/16/17 07:00 85 01/16/17 07:00 97.3 86 18 119/63 90 01/16/17 04:42 91 Nasal Cannula 6.00 01/16/17 04:00 130/76 01/16/17 03:00 91 Nasal Cannula 6.00 01/16/17 03:00 90 01/16/17 03:00 98.0 91 12 140/72 91 01/16/17 01:00 135/69 01/15/17 23:00 90 01/15/17 23:00 97.9 87 16 145/72 93 01/15/17 23:00 93 Nasal Cannula 6.00 01/15/17 21:03 Nasal Cannula 4.00 01/15/17 21:00 89 Nasal Cannula 6.00 01/15/17 20:00 89 Nasal Cannula 4.00 01/15/17 19:00 97.8 96 18 133/69 90 01/15/17 19:00 90 Nasal Cannula 3.00 01/15/17 19:00 88 I/O 01/15/17 01/15/17 01/15/17 01/16/17 01/16/17 01/16/17 07:00 15:00 23:00 07:00 15:00 23:00 Intake Total 567 ml 1800 ml 1080 ml Output Total 750 ml 740 ml 930 ml Balance -183 ml 1060 ml 150 ml Intake Oral 360 ml 1800 ml 1080 ml IV Total 207 ml Output Urine Total 700 ml 690 ml 800 ml Stool Total 50 ml 50 ml 100 ml Emesis 30 ml Result Diagram: 01/16/17 0411 01/16/17 0411 Dionisio Oden MD Jan 16, 2017 15:11
[2017-01-16] MEDS ORDERED: PROPOFOL 500 MG/50 ML INJ 50 ML ONE ×2 (15:23→15:27)
--- NOTE | 2017-01-16 15:44 | RADRPT ---
EXAM DATE/TIME: 01/16/2017 15:10 [facility] COMPARISON: ABDOMEN KUB ONLY, January 16, 2017, 4:34. INDICATIONS : Post intubation MEDICAL HISTORY : Hypertension. Arthritis SURGICAL HISTORY : Coronary artery stent. ENCOUNTER: Initial ACUITY: 1 day PAIN SCORE: Non-responsive. LOCATION: Bilateral chest FINDINGS: The nasogastric tube is coiled within the oropharynx and proximal trachea. The tip of the tube is wit hin the mainstem bronchus. The floor was called. The NG tube has already been removed as the x-ray wa s evaluated by Dr. Trivedi on the portable x-ray machine. There is an endotracheal tube present. The tube is in the trachea. The tip of the tube is approximate ly 6.8 cm above the rosalina. The right lung is clear. There is mild atelectatic change and infiltrate at the left lung base. A lef t basilar pneumonia is not excluded. The bony structures demonstrate degenerative changes but are otherwise intact. CONCLUSION: 1. The tip of the NG tube is in the right mainstem bronchus. This tube has already been removed per Baljinder Trivedi. 2. The endotracheal tube is within the trachea the tip is somewhat high above the rosalina. Mitch Lopez MD on January 16, 2017 at 15:38 Board Certified Radiologist. This report was verified electronically.
[2017-01-16] MEDS ORDERED: PROPOFOL 1000 MG/100 ML INJ 100 ML IV SCH (15:45)
[2017-01-16 15:59] LABS: BLOOD GAS BASE EXCESS -4.8 mmol/L (-2-2); BLOOD GAS CARBOXYHEMOGLOBIN 1.4 % (0-4); BLOOD GAS HCO3 21 mmol/L (22-26); BLOOD GAS METHEMOGLOBIN 1.2 % (0-2); BLOOD GAS O2 HGB SATURATION 81 % (90-100); BLOOD GAS OXYGEN CONTENT 13.3 Vol % (12.0-20.0); BLOOD GAS PCO2 45 mmHg (38-42); BLOOD GAS PO2 58 mmHg (61-120); BLOOD GAS TOTAL HGB 11.7 G/DL (12.0-16.0); CRITICAL VALUE YES; OXYGEN DEVICE VENTILATOR; TEMP CORR TO 98.6
[2017-01-16 16:00] LABS: DRAW SITE LT RADIAL; FIO2 100 %; NUMBER OF ARTERIAL PUNCTURES 1; STAT YES; ULNAR PULSE PRESENT; VENT SETTINGS PRVC/AC
[2017-01-16] MEDS ORDERED: fentaNYL DRIP 250 ML IV SCH (16:00)
--- NOTE | 2017-01-16 16:10 | RADRPT ---
EXAM DATE/TIME: 01/16/2017 15:10 [facility] COMPARISON: CHEST SINGLE AP, January 16, 2017, 15:10. ABDOMEN KUB ONLY, January 16, 2017, 4:34. INDICATIONS : Feeding tube placement. MEDICAL HISTORY : None. SURGICAL HISTORY : None. ENCOUNTER: Initial ACUITY: 1 day PAIN SCORE: 0/10 LOCATION: ABDOMEN FINDINGS: Nasogastric tube only reaches the level of the low chest, potentially within the airway structures. T here is infiltrate in the left lung. Visualized abdomen is grossly stable. CONCLUSION: Nasogastric tube position is unchanged. Complete removal and replacement recommended Farooq Ragland MD on January 16, 2017 at 16:07 Board Certified Radiologist. This report was verified electronically.
[2017-01-16] MEDS ORDERED: DOBUTamine PREMIX DRIP 250 ML ONE (16:42)
[2017-01-16] MEDS ORDERED: ROCURONIUM INJ 50 MG/5 ML VIAL IV ONE ×2 (16:45→17:45)
--- NOTE | 2017-01-16 16:55 | RADRPT ---
EXAM DATE/TIME: 01/16/2017 17:19 [facility] COMPARISON: CHEST SINGLE AP, January 16, 2017, 15:10. INDICATIONS : Low oxygen saturation unexplained. MEDICAL HISTORY : Arthritis. Hypertension SURGICAL HISTORY : Coronary artery stent. ENCOUNTER: Subsequent ACUITY: 2 days PAIN SCORE: Non-responsive. LOCATION: Bilateral upper chest FINDINGS: Endotracheal tube is present in satisfactory position with tip 6 centimeters above the rosalina. There is extensive airspace infiltrate in the left lower lobe and mild airspace disease in the contralatera l right base. The cardiomediastinal contours are grossly satisfactory accounting for technique and pr ojection. CONCLUSION: Significant worsening in aeration. Farooq Ragland MD on January 16, 2017 at 16:52 Board Certified Radiologist. This report was verified electronically.
[2017-01-16] MEDS ORDERED: EPOPROSTENOL NEB SOLUTION 50 NG/KG/MIN 100 ML NEB SCH ×2 (17:00)
[2017-01-16] MEDS ORDERED: CISATRACURIUM 100 MG/NS 250 ML IV SCH ×2 (17:00)
--- NOTE | 2017-01-16 17:15 | PD.PROCEDR ---
Procedure Note Procedure After the risks and benefits were discussed the following procedure was performed: INTUBATION: The patient was put in optimal position for the procedure. Rapid sequence intubation was initiated by me using 20 milligrams of etomidate IV and 50 milligrams of succinyl choline IV. DL with Lee 3 blade, difficult view due to severe aspiration, and dark brown fluid obscuring Glottic opening but intubated in single attempt. (Second intubation was Grade 1 view, Difficult to bankruptcy judge postion of NGT due to severe secretion obscuring airway opening). The patient was intubated with a 7.0 cuffed endotracheal tube. Tube placement was confirmed by visualization of the tube and balloon passing through the cords, capnometry and subsequent chest x-ray. Breath sounds were equal and well aerated bilaterally postintubation. No breath sounds over stomach. Severe refractory hypoxia noted. See addendum PN Elena Trivedi MD Jan 16, 2017 17:15
[2017-01-16] MEDS ORDERED: SODIUM BICARBONATE 8.4% INJ 50 MEQ/50 ML SYR IV ONE ×5 (17:45→22:37)
[2017-01-16] MEDS ORDERED: PIPERACIL-TAZO 3.375 GM PREMIX 50 ML IV SCH (18:00)
[2017-01-16] MEDS ORDERED: SODIUM CHLOR 0.9% 1000 ML INJ 1,000 ML IV ONE (18:00)
[2017-01-16] MEDS ORDERED: VANCOMYCIN 1,000 MG/NS 250 ML IV ONE ×2 (18:00)
--- NOTE | 2017-01-16 18:02 | PD.PROCEDR ---
Procedure Note Procedure Reintubation to replace 7.0 ETT in anticipation to Prone therapy: INTUBATION: The patient was put in optimal position for the procedure. Rapid sequence intubation was initiated by me using 50 milligrams of rocuronium IV and continuous propofol infusion. Dl with mac 4 blade grade 1 view. The patient was intubated with a 8.0 cuffed endotracheal tube. Tube placement was confirmed by visualization of the tube and balloon passing through the cords, capnometry and subsequent chest x-ray. Breath sounds were equal and well aerated bilaterally postintubation. No breath sounds over stomach. Patient tolerated procedure well. Elena Trivedi MD Jan 16, 2017 18:02
--- NOTE | 2017-01-16 18:28 | PD.PROCEDR ---
Procedure Note Procedure REASON FOR PROCEDURE Invasive BP monitoring PROCEDURE PERFORMED Arterial line placement: R femoral CONSENT Emergency procedure ANESTHESIA Local injection of 1% Lidocaine DESCRIPTION OF THE PROCEDURE The patient was placed in supine, mild Trendelenburg position. The area was exposed and cleansed with ChloraPrep, times two. Large sterile drape was used to cover the patient, with the site exposed, under sterile conditions including cap, face mask, sterile gown, and sterile gloves. On single attempt, the introducer needle was inserted with negative pressure in syringe and arterial flash was obtained form R femoral artery. The guide wire was then advanced without any restriction and the needle was removed. Using Seldinger technique the arterial catheter was advanced over the guide wire and guide wire was removed. The arterial line was secured to the skin with two interrupted 2.0 silk sutures. The area was bandaged with sterile see-through central line bandage. ESTIMATED BLOOD LOSS: Less than 3 cc. Elena Trivedi MD Jan 16, 2017 18:27
--- NOTE | 2017-01-16 18:29 | PD.PROCEDR ---
Central Line Procedure REASON FOR PROCEDURE Central venous access PROCEDURE PERFORMED Central line placement: [facility] central line CONSENT Emergency procedure ANESTHESIA Local injection of 1% Lidocaine DESCRIPTION OF THE PROCEDURE The patient was placed in supine, mild Trendelenburg position. The area was exposed and cleansed with ChloraPrep, times two. Large sterile drape was used to cover the patient, with the site exposed, under sterile conditions including cap, face mask, sterile gown, and sterile gloves. On single attempt, the introducer needle was inserted with negative pressure in syringe and venous flash was obtained. The guide wire was then advanced without any restriction and the needle was removed. The dilator was used without any complications. Using Seldinger technique the 20 cm 7 Slovak triple-lumen catheter was advanced over the guide wire to a depth of 18 centimeters. The guide wire was removed. All ports were aspirated with dark venous blood return and flushed easily with sterile saline. All ports were capped. Antibiotic disc was placed around central line at puncture site. The central line was secured to the skin with two interrupted 2.0 silk sutures. The area was bandaged with sterile see- through central line bandage. RADIOLOGICAL DATA Ultrasound guidance was used to locate [facility]. Doppler/color flow was used to confirm venous flow. COMPLICATIONS: No apparent complications ESTIMATED BLOOD LOSS: Less than 1 cc. Elena Trivedi MD Jan 16, 2017 18:28
[2017-01-16] MEDS ORDERED: GLUCAGON 1 MG/ML VIAL OTHER PRN (19:00)
[2017-01-16] MEDS ORDERED: MIDAZOLAM 100 MG/ML INJ 100 ML IV SCH (19:00)
[2017-01-16] MEDS ORDERED: VASOPRESSIN 40 U/D5W 100 ML Shock/septic shock, do NOT titrate until taper off IV SCH ×2 (19:00)
[2017-01-16] MEDS ORDERED: MIDAZOLAM HCL 2 MG/2 ML VIAL IV ONE (19:00)
[2017-01-16] MEDS ORDERED: DEXTROSE 50% IN WATER 50 ML VIAL(D50) IV PUSH PRN (19:00)
[2017-01-16] MEDS ORDERED: HYDROCORTISONE SOD SUCCINATE 100 MG VIAL ONE (19:00)
[2017-01-16 19:09] LABS: AUTOMATED NEUTROPHIL # 1.9 TH/MM3 (1.8-7.7); BASOPHIL % 0.3 % (0.0-2.0); EOSINOPHIL % 2.1 % (0.0-4.0); HEMATOCRIT 31.7 % (39.0-51.0); LYMPH % 16.4 % (9.0-44.0); LYMPHOCYTE # 0.4 TH/MM3 (1.0-4.8); MEAN CELL VOLUME 88.2 FL (80.0-100.0); MEAN CORPUSCULAR HEMOGLOBIN 29.6 PG (27.0-34.0); MEAN CORPUSCULAR HGB CONC 33.6 % (32.0-36.0); MONO % 1.1 % (0.0-8.0); NEUT % 80.1 % (16.0-70.0); PLATELET COUNT 143 TH/MM3 (150-450); RED BLOOD COUNT 3.59 MIL/MM3 (4.50-5.90); RED CELL DISTRIBUTION WIDTH 13.5 % (11.6-17.2); WHITE BLOOD COUNT 2.4 TH/MM3 (4.0-11.0)
[2017-01-16] MEDS ORDERED: PHENYLEPHRINE HCL 10 MG/ML VIAL ONE ×3 (19:12→19:14)
--- NOTE | 2017-01-16 19:14 | RADRPT ---
EXAM DATE/TIME: 01/16/2017 18:31 [facility] COMPARISON: CHEST SINGLE AP, January 16, 2017, 17:19. INDICATIONS : Central line placement MEDICAL HISTORY : Arthritis. Hypertension SURGICAL HISTORY : Coronary artery stent ENCOUNTER: Initial ACUITY: 1 day PAIN SCORE: Non-responsive. LOCATION: Bilateral chest FINDINGS: There is a new left internal jugular central line in place with the tip overlying the e xpected location of the SVC. This appears well placed. A pneumothorax is not seen. The patient con tinues to be intubated with the ET tube in good position. There is also an NG tube in place. The hea rt size is normal. There continues to be increased parenchymal density throughout much of the left l erica. There is some minimal increased density at the right base. CONCLUSION: 1. New left internal jugular central line in good position. 2. Persistent consolidation throughout much of the left lung. There is minimal increased density at the right base. Farooq Aranda MD on January 16, 2017 at 19:10 Board Certified Radiologist. This report was verified electronically.
[2017-01-16] MEDS ORDERED: SODIUM BICARBONATE 8.4% INJ 50 ML ONE ×3 (19:39→22:04)
[2017-01-16 19:42] LABS: HEMO FLAGS AUTO DIFF
[2017-01-16 19:47] LABS: BANDS 43 % (0-6); EOSINOPHILS 1 % (0-4); METAMYELOCYTES 13 % (0-1); MYELOCYTES 8 % (0-0); NEUTROPHIL # MANUAL DIFF 1.9 TH/MM3 (1.8-7.7); POLYS (SEG NEUTROPHILS) 17 % (16-70); WBC DIFF SAMPLE 100
[2017-01-16 19:49] LABS: PLATELET ESTIMATE SMEAR NORMAL (NORMAL); PLATELET MORPHOLOGY NORMAL (NORMAL); SCAN/DIFF FINAL DIFF MANUAL
[2017-01-16 19:54] LABS: BICARBONATE 31.4 MEQ/L (21.0-32.0); CALCIUM-PROTEIN CORRECTED 8.1 MG/DL (8.5-10.1); TOTAL BILIRUBIN ADULT 1.1 MG/DL (0.2-1.0)
[2017-01-16] MEDS ORDERED: TERBUTALINE INJ 1 MG/ML AMP SQ PRN (20:00)
[2017-01-16] MEDS ORDERED: CHLORHEXIDINE 0.12% (ORAL KIT) 15 ML CUP MT SCH (20:00)
[2017-01-16] MEDS ORDERED: SODIUM BICARBONATE 8.4% INJ 150 MEQ in DEXTROSE 5% IN WATE 1000ML INJ 1,000 ML IV SCH ×2 (20:00)
[2017-01-16] MEDS ORDERED: ALBUMIN HUMAN 5% 25 GM/500 ML BOTTLE IV ONE (20:00)
[2017-01-16] MEDS: ENOXAPARIN SODIUM 30 MG/0.3 ML SYRINGE SQ SCH (20:00)
--- NOTE | 2017-01-16 20:04 | RADRPT ---
EXAM DATE/TIME: 01/16/2017 19:09 [facility] COMPARISON: No previous studies available for comparison. INDICATIONS : OG tube placement MEDICAL HISTORY : None. SURGICAL HISTORY : None. ENCOUNTER: Initial ACUITY: 1 day PAIN SCORE: Non-responsive. LOCATION: Bilateral upper abdomen FINDINGS: There is an OG tube in place with the tip directed towards the distal aspect of the sto mach. There is increased density at the left lung base with silhouetting of the left hemidiaphragm. The right lung base appears clear. Contrast identified within the bowel. CONCLUSION: Orogastric tube with its tip in the distal stomach. This is well positioned. Farooq Aranda MD on January 16, 2017 at 19:41 Board Certified Radiologist. This report was verified electronically.
[2017-01-16] MEDS ORDERED: INSULIN ASPART SUPPLEMENTAL SCALE SQ SCH (21:00)
[2017-01-16] MEDS: ATORVASTATIN 40 MG TAB PO SCH (21:00)
[2017-01-16] MEDS: PHENYLEPHRINE 40 MG/D5W 496 ML ADMIX IV SCH ×2 (21:10)
[2017-01-16] MEDS ORDERED: EPINEPHrine HCL (1:1000) 1 MG/ML VIAL ONE (21:29)
[2017-01-16] MEDS ORDERED: EPINEPHrine 4 MG/D5W 250 ML IV SCH ×2 (22:00)
[2017-01-16] MEDS ORDERED: HYDROCORTISONE SOD SUCCINATE 100 MG VIAL IV PUSH SCH (22:00)
--- NOTE | 2017-01-16 22:45 | RADRPT ---
EXAM DATE/TIME: 01/16/2017 21:33 [facility] COMPARISON: CHEST SINGLE AP, January 16, 2017, 18:31. INDICATIONS : Respiratory status. MEDICAL HISTORY : Hypertension. SURGICAL HISTORY : Coronary artery stent. ENCOUNTER: Subsequent ACUITY: 2 days PAIN SCORE: Non-responsive. LOCATION: Bilateral upper chest FINDINGS: The ET tube, nasogastric tube and left internal jugular central line appear well placed. The heart s ize is normal. There is increased density seen throughout much of the left lung with relative sparin g of the left apex. There is increased density at the right mid and lower lung. There is silhouettin g of the diaphragms bilaterally. CONCLUSION: Worsening consolidation seen bilaterally. This is asymmetric being worse on the left. Farooq Aranda MD on January 16, 2017 at 22:38 Board Certified Radiologist. This report was verified electronically.
--- NOTE | 2017-01-16 22:50 | HHI.DS ---
Summary Note Date of : Jan 16, 2017 Time Of : 22:38 Admission Date Jan 07, 2017 at 16:13 Admitting Diagnosis Descending Aortic Dissection Diagnosis at Time of : CBC/BMP: 01/16/17 1848 01/16/17 1848 Significant Findings Laboratory Tests Test 01/14/17 01/14/17 01/15/17 01/16/17 04:50 23:25 11:30 04:11 White Blood Count 12.0 TH/MM3 13.5 TH/MM3 11.9 TH/MM3 (4.0-11.0) (4.0-11.0) (4.0-11.0) Red Blood Count 3.81 MIL/MM3 3.90 MIL/MM3 3.98 MIL/MM3 (4.50-5.90) (4.50-5.90) (4.50-5.90) Hemoglobin 11.1 GM/DL 11.9 GM/DL 12.0 GM/DL (13.0-17.0) (13.0-17.0) (13.0-17.0) Hematocrit 33.7 % 34.3 % 35.0 % (39.0-51.0) (39.0-51.0) (39.0-51.0) Potassium Level 2.8 MEQ/L 3.2 MEQ/L (3.5-5.1) (3.5-5.1) Blood Urea Nitrogen 59 MG/DL (7-18) 61 MG/DL (7-18) 73 MG/DL (7-18) Creatinine 1.59 MG/DL 1.76 MG/DL 1.76 MG/DL (0.60-1.30) (0.60-1.30) (0.60-1.30) Estimat Glomerular Filtration 42 ML/MIN (>89) 37 ML/MIN (>89) 37 ML/MIN (>89) Rate Random Glucose 113 MG/DL 110 MG/DL 128 MG/DL (74-106) (74-106) (74-106) Test 01/16/17 01/16/17 15:50 18:48 Blood Gas HCO3 21 mmol/L (22-26) Blood Gas Base Excess -4.8 mmol/L (-2-2) Blood Gas Oxygen Saturation 81 % (90-100) Arterial Blood pH 7.29 (7.380-7.420) Arterial Blood Partial 45 mmHg (38-42) Pressure CO2 Arterial Blood Partial 58 mmHg Pressure O2 (61-120) Blood Gas Hemoglobin 11.7 G/DL (12.0-16.0) White Blood Count 2.4 TH/MM3 (4.0-11.0) Red Blood Count 3.59 MIL/MM3 (4.50-5.90) Hemoglobin 10.6 GM/DL (13.0-17.0) Hematocrit 31.7 % (39.0-51.0) Platelet Count 143 TH/MM3 (150-450) Neutrophils (%) (Auto) 80.1 % (16.0-70.0) Lymphocytes # (Auto) 0.4 TH/MM3 (1.0-4.8) Band Neutrophils % 43 % (0-6) Metamyelocytes 13 % (0-1) Myelocytes 8 % (0-0) Sodium Level 146 MEQ/L (136-145) Potassium Level 3.0 MEQ/L (3.5-5.1) Blood Urea Nitrogen 77 MG/DL (7-18) Creatinine 2.12 MG/DL (0.60-1.30) Estimat Glomerular Filtration 30 ML/MIN (>89) Rate Random Glucose 121 MG/DL (74-106) Lactic Acid Level 3.3 mmol/L (0.4-2.0) Calcium Level 6.7 MG/DL (8.5-10.1) Protein Corrected Calcium 8.1 MG/DL (8.5-10.1) Total Bilirubin 1.1 MG/DL (0.2-1.0) Total Protein 4.4 GM/DL (6.4-8.2) Albumin 1.7 GM/DL (3.4-5.0) Imaging Last 24 hours Impressions Abdomen X-Ray 01/16/17 0600 Signed Impressions: Service Date/Time: Monday, January 16, 2017 04:34 - CONCLUSION: Distended cecum and mild dilatation of some of the loops of small bowel and a very limited exam. Clay Ferrara MD Chest X-Ray 01/16/17 0000 Signed Impressions: Service Date/Time: Monday, January 16, 2017 18:31 - CONCLUSION: 1. New left internal jugular central line in good position. 2. Persistent consolidation throughout much of the left lung. There is minimal increased density at the right base. Farooq Aranda MD Chest X-Ray 01/16/17 0000 Signed Impressions: Service Date/Time: Monday, January 16, 2017 17:19 - CONCLUSION: Significant worsening in aeration. Farooq Ragland MD Chest X-Ray 01/16/17 0000 Signed Impressions: Service Date/Time: Monday, January 16, 2017 15:10 - CONCLUSION: 1. The tip of the NG tube is in the right mainstem bronchus. This tube has already been removed per Dr. Trivedi. 2. The endotracheal tube is within the trachea the tip is somewhat high above the rosalina. Mitch Lopez MD Abdomen X-Ray 01/16/17 0000 Signed Impressions: Service Date/Time: Monday, January 16, 2017 15:10 - CONCLUSION: Nasogastric tube position is unchanged. Complete removal and replacement recommended Farooq Ragland MD Hospital Course 12/29/16: BP improved control on Labetalol gtt. NPO now. Once cleared by vascular surgery, will start PO antihypertensives. Target less than 110. Creat worsened from 1.4 to 2.4. Nephrology consulted 01/09: still on clevidipine. Cr plateaued at 2.7. uop adequate. no complaints. 01/10: still on clevidipine despite increasing anti-htn regimen. overnight became hypoxic requiring BiPAP. given bumex with good response and improvement in oxygenation. 4/: tolerating regular diet. off clevidipine. on oral meds with good bp control. still on high flow NC. renal function improves, but still oliguric and not net negative fluid balance despite attempts at forced diuresis. patient states he feels good this morning. 3: doing well this morning. o2 requirement still very high, on high-flow 40LPM with 80% fio2. however, not dyspneic. not complaining of SOB. tolerated breakfast. good diuresis yesterday. 44: still high fio2 requirements. abdomen very distended this morning. 2 episodes of emesis overnight. KUB with colonic ileus. good diuresis again yesterday. 4/5: fio2 requirements decreasing. down to 50% from 100%. decompressive colonoscopy yesterday with placement of rectal tube. Cr downtrending with + fluid balance yesterday. 01/15: down to nasal canula today, still at 6 LPM. still poor bowel function despite rectal tube. GI following. 01/16: KUB shows significant cecal distention, 14.6 CM. patient is in moderate distress due to abd distension. D/W Gi planning for repeat decompressive colonoscopy today 7 pm acute hypoxemic respiratory failure due to aspiration during Decompressive colonoscopy. The patient after receiving sedation continued to decompensate respiratory hairston with O2 saturation into the low 70s. Apparently he was placed on BiPAP for hypoxia during procedure and he vomited extensively followed by severe aspiration. He was emergently intubated, had a large amount of secretion pooling at the glottic opening, position of the NG tube was unclear , though could have been entering trachea. Post intubation severe difficulty with oxygenation requiring bag and mask ventilation at the bedside on and off for 2 hour. Post intubation chest x-ray showed NGT in the right mainstem bronchus. There was also a small cuff leak which most likely was secondary to the NG tube placement into the lung. NG tube was removed. Patient saturation only temporally improved despite different attempts at different vent modes and PEEP up to 15. Bag and mask ventilation was resumed and once saturation was closed 90% I removed the existing 7.0 ET tube and placed 8.0 ET tube. Post re intubation chest x-ray showed extensive infiltrate in bilateral lung robins predominantly left lung. This indicates early acute lung injury/ARDS. Flolan was started with only mild improvement. For low blood pressure patient was placed on initially Levophed and dobutamine was added. Patient continued to decline despite of aggressive IV fluid resuscitation bicarbonate drip bicarbonate pushes, 3 pressors such as epinephrine Levophed and vasopressin. Despite of aggressive care patient at [id number] Rio Fletcher MD Jan 16, 2017 22:50
--- NOTE | 2017-01-16 22:55 | DEATH SUM ---
Pronouncement Date Pronounced : Jan 16, 2017 Time Of : 22:38 Pronouncement Called to pronounce of patient. Identified patient as Ernst Durand with wrist band MR# [id number]. Patient with no cardiac activity in 2 separate leads and no palpable/auscible cardiac activity. Patient with no spontaneous respirations, no corneal reflex or response to painful stimuli. Pupils fixed and dilated. Rio Fletcher MD Jan 16, 2017 22:55
[2017-01-17] MEDS: PHENYLEPHRINE 40 MG/D5W 496 ML ADMIX IV SCH ×2 (01:19)
== END 2017-01-16 22:38 | disposition expired | DRG 299 ==
LOC: PHED 13:38 → PHEDA 16:13 → HCVR 18:00
PROVIDERS: ADMIT Surgery; ATTEND Surgery
PROC: 03HY32Z Insertion of Monitoring Device into Upper Artery, Percutaneous Approach (ICD-10-PCS; principal; 2017-01-07)
PROC: 5A09457 Assistance with Respiratory Ventilation, 24-96 Consecutive Hours, Continuous Positive Airway Pressure (ICD-10-PCS; 2017-01-10)
PROC: 0D7E8ZZ Dilation of Large Intestine, Via Natural or Artificial Opening Endoscopic (ICD-10-PCS; 2017-01-13)
PROC: 04HY32Z Insertion of Monitoring Device into Lower Artery, Percutaneous Approach (ICD-10-PCS; 2017-01-16)
PROC: 5A1935Z Respiratory Ventilation, Less than 24 Consecutive Hours (ICD-10-PCS; 2017-01-16)
PROC: 0D7E8ZZ Dilation of Large Intestine, Via Natural or Artificial Opening Endoscopic (ICD-10-PCS; 2017-01-16)
PROC: 02HV33Z Insertion of Infusion Device into Superior Vena Cava, Percutaneous Approach (ICD-10-PCS; 2017-01-16)
PROC: 0BH17EZ Insertion of Endotracheal Airway into Trachea, Via Natural or Artificial Opening (ICD-10-PCS; 2017-01-16)
DX: I71.02 Dissection of abdominal aorta (principal); J96.01 Acute respiratory failure with hypoxia; N17.9 Acute kidney failure, unspecified; J80 Acute respiratory distress syndrome; K59.39 Other megacolon; K56.0 Paralytic ileus; I16.1 Hypertensive emergency; K56.41 Fecal impaction; E86.1 Hypovolemia; I25.10 Atherosclerotic heart disease of native coronary artery without angina pectoris; E78.5 Hyperlipidemia, unspecified; I44.0 Atrioventricular block, first degree; E87.70 Fluid overload, unspecified; I10 Essential (primary) hypertension; N40.0 Benign prostatic hyperplasia without lower urinary tract symptoms; K64.4 Residual hemorrhoidal skin tags; K64.8 Other hemorrhoids; Z95.5 Presence of coronary angioplasty implant and graft; Z87.891 Personal history of nicotine dependence
CPT/HCPCS: 31500; 36556; 36600; 71010; 71250; 71275; 74000; 74174; 74176; 74270; 76775; 76937; 80048; 80053; 80061; 80069; 81001; 82550; 82570; 82805; 83605; 83615; 83690; 83735; 83880; 84100; 84132; 84300; 84450; 84460; 84484; 85007; 85014; 85025; 85027; 85610; 85730; 86160; 86850; 86900; 86901; 87205; 93005; 94002; 94003; 94150; 94640; 94664; 94667; 94668; 94799; C9248; J0171; J0360; J0461; J1120; J1205; J1250; J1325; J1650; J1720; J2212; J2250; J2270; J2370; J2405; J2765; J3480; J7030; J7040; J7050; J7060; J7070; P9045; Q9963; Q9967